=== PATIENT | male | born 1970 | race Caucasian/White ===

== ENCOUNTER 2020-12-10 14:07 | Inpatient (IN) | payer MEDICARE, OTHER ==
[~2020-12-10] VITALS: Ht 172.7 cm; Wt 78.9 kg
[~2020-12-10 14:07] MED LIST: ACET325T9 PO; ALBU2.5V14 NEB; ALUM320O4 PO; BISA-42 PO; BISA10SU55 RC; BUSP5TAB PO; DIVA250T PO; DIVA500T17 PO; HALO2TAB PO; HYOS0.1265 SL; LOPE2CAP PO; LORA-254 PO; LORA0.5T PO; LORA2VIA6 IJ; LORA2VIA6 IM; MAGN24003 PO; MAGN400O7 PO; NITR100C62 PO; OMEP20CA16 PO; ONDA4TAB7 PO; ONDA8TAB9 PO; OXYC5TAB4 PO; POLY17PO5 PO; PROC10TA2 PO; SENN8.6C2 PO; SIMV10TA15 PO
[2020-12-10] MEDS ORDERED: NA P133E2 RC (15:50)
[2020-12-10] MEDS ORDERED: FENT-73 TP (15:50)
[2020-12-10] MEDS ORDERED: SIMV10TA15 PO (15:50)
[2020-12-10] MEDS ORDERED: ACET325T21 PO (15:50)
[2020-12-10] MEDS ORDERED: HALO2ORA3 PO (15:50)
[2020-12-10] MEDS ORDERED: DIVA250T PO (15:50)
[2020-12-10] MEDS ORDERED: MULT-246 PO (15:50)
[2020-12-10] MEDS ORDERED: FAMO20TA5 PO (15:50)
[2020-12-10] MEDS ORDERED: BISA5TAB4 PO (15:50)
[2020-12-10] MEDS ORDERED: INSU100I17 SQ (15:50)
[2020-12-10] MEDS ORDERED: PARO40TA61 PO (15:50)
[2020-12-10] MEDS ORDERED: LACT1CAP6 PO (15:50)
[2020-12-10] MEDS ORDERED: BACL10TA PO (15:50)
[2020-12-10] MEDS ORDERED: NALO25TA4 PO (15:50)
[2020-12-10] MEDS ORDERED: DOCU100C28 PO (15:50)
[2020-12-10] MEDS ORDERED: POLY17PO5 PO (15:50)
[2020-12-10] MEDS ORDERED: SENN8.6T11 PO (15:50)
[2020-12-10] MEDS ORDERED: BUSP15TA PO (15:50)
[2020-12-10] MEDS ORDERED: INSU100I13 SQ (15:50)
[2020-12-10] MEDS ORDERED: TAMS0.4C97 PO (15:50)
[2020-12-10] MEDS ORDERED: PARO10TA57 PO (15:50)
[2020-12-10] MEDS ORDERED: MAG HYDROX/AL HYDROX/SIMETH 30 ML ORAL.SUSP PO PRN (20:15)
[2020-12-10] MEDS ORDERED: METHYL SALICYLATE/MENTHOL TOPICAL OINTMENT 57GM TUBE. TP PRN (20:15)
[2020-12-10] MEDS ORDERED: MAGNESIUM HYDROXIDE 2,400 MG/30 ML ORAL.SUSP. PO PRN (20:15)
[2020-12-10 20:20] VITALS: BP 158/99
[2020-12-10] MEDS ORDERED: ACETAMINOPHEN 325 MG TABLET PO PRN (20:45)
[2020-12-10] MEDS ORDERED: NALOXEGOL OXALATE 25 MG TABLET. PO PRN (20:45)
[2020-12-10] MEDS ORDERED: SODIUM PHOSPHATES 19/7GM 133 ML ENEMA. RC PRN (20:45)
[2020-12-10] MEDS ORDERED: BISACODYL TAB 5 MG TABLET.DR. PO PRN (20:45)
[2020-12-10] MEDS: INSULIN GLARGINE SYRINGE. SQ SCH (21:00)
[2020-12-10 21:17] LABS: BASO # 0.1 x10^3/uL (0.0-0.2); BASO % 1 % (0-3); EOS # 0.3 x10^3/uL (0.0-0.7); EOS % 3 % (0-3); HEMATOCRIT 38.8 % (39.0-53.0); HEMOGLOBIN 12.6 g/dL (13.0-17.5); LYMPH # 1.7 x10^3/uL (1.0-4.8); LYMPH % 21 % (24-48); MEAN CORPUSCULAR HEMOGLOBIN 28 pg (25-35); MEAN CORPUSCULAR HGB CONC 33 g/dL (31-37); MEAN CORPUSCULAR VOLUME 84 fL (79-100); MONO # 0.7 x10^3/uL (0.0-1.1); MONO % 9 % (0-9); NEUT # 5.4 x10^3uL (1.8-7.7); NEUT % 66 % (31-73); PLATELET COUNT 181 x10^3/uL (140-400); RED CELL DISTRIBUTION WIDTH 16.6 % (11.5-14.5); WHITE BLOOD COUNT 8.2 x10^3/uL (4.0-11.0)
[2020-12-10] MEDS: BACLOFEN 10 MG TABLET PO SCH (21:24)
[2020-12-10] MEDS: LACTOBACILLUS RHAMNOSUS GG 1 CAPSULE. PO SCH (21:24)
[2020-12-10] MEDS: HALOPERIDOL 2 MG TABLET PO SCH (21:24)
[2020-12-10] MEDS: SIMVASTATIN 10 MG TABLET PO SCH (21:24)
[2020-12-10] MEDS: FAMOTIDINE 20 MG TABLET PO SCH (21:24)
[2020-12-10] MEDS: DIVALPROEX ER 250 MG TAB.ER.24H. PO SCH (21:24)
[2020-12-10] MEDS: POLYETHYLENE GLYCOL 3350 17 GM PACKET. PO SCH (21:24)
[2020-12-10] MEDS: busPIRone 15 MG TABLET. PO SCH (21:25)
[2020-12-10] MEDS: DOCUSATE SODIUM 100 MG CAPSULE PO SCH (21:25)
[2020-12-10 21:32] LABS: ALBUMIN 3.1 g/dL (3.4-5.0); ALBUMIN/GLOBULIN RATIO 0.6 (1.0-1.7); ALK PHOS 73 U/L (46-116); ALT (SGPT) 15 U/L (16-63); ANION GAP 12 (6-14); AST (SGOT) 5 U/L (15-37); BLOOD UREA NITROGEN 25 mg/dL (8-26); BUN/CREATININE RATIO 23 (6-20); CALCIUM 9.1 mg/dL (8.5-10.1); CARBON DIOXIDE 25 mmol/L (21-32); CHLORIDE 105 mmol/L (98-107); CREATININE 1.1 mg/dL (0.7-1.3); GFR 70.9; GLUCOSE 163 mg/dL (70-99); MAGNESIUM 2.2 mg/dL (1.8-2.4); POTASSIUM 4.3 mmol/L (3.5-5.1); SODIUM 142 mmol/L (136-145); TOTAL BILIRUBIN 0.1 mg/dL (0.2-1.0); TOTAL PROTEIN 8.1 g/dL (6.4-8.2)
[2020-12-10 21:35] LABS: VAL ACID 40 mcg/mL (50-100)
[2020-12-10 22:49] LABS: BILIRUBIN,URINE NEG (NEG); CLARITY,URINE CLOUDY; COLOR,URINE YELLOW; GLUCOSE,URINE NEG (NEG)
[2020-12-10 22:50] LABS: BACTERIA,URINE MOD /HPF (0-FEW); NITRITE,URINE POS (NEG); SQUAMOUS EPITHELIAL CELL,UR OCC /LPF; UROBILINOGEN,URINE 0.2 mg/dL (0.2 mg/dL); WBC,URINE >40 /HPF (0-4)
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
[2020-12-11 06:44] VITALS: BP 122/86
[2020-12-11] MEDS: LACTOBACILLUS RHAMNOSUS GG 1 CAPSULE. PO SCH ×2 (09:18→20:49)
[2020-12-11] MEDS: PARoxetine 20 MG TABLET PO SCH (09:19)
[2020-12-11] MEDS: busPIRone 15 MG TABLET. PO SCH ×3 (09:19→20:50)
[2020-12-11] MEDS: BACLOFEN 10 MG TABLET PO SCH ×3 (09:19→20:49)
[2020-12-11] MEDS: HALOPERIDOL 2 MG TABLET PO SCH ×2 (09:19→20:50)
[2020-12-11] MEDS: PARoxetine 10 MG TABLET PO SCH (09:19)
[2020-12-11] MEDS: POLYETHYLENE GLYCOL 3350 17 GM PACKET. PO SCH ×2 (09:20→20:49)
[2020-12-11] MEDS: SENNOSIDES 8.6 MG TABLET PO SCH (09:20)
[2020-12-11] MEDS: DIVALPROEX ER 250 MG TAB.ER.24H. PO SCH ×3 (09:20→20:50)
[2020-12-11] MEDS: DOCUSATE SODIUM 100 MG CAPSULE PO SCH ×2 (09:20→20:50)
[2020-12-11] MEDS: TAMSULOSIN 0.4 MG CAP.ER.24H. PO SCH (09:20)
[2020-12-11] MEDS: MULTIVITAMIN with MINERAL TABLET. PO SCH (09:20)
[2020-12-11] MEDS: INSULIN LISPRO 300 UNITS/3 ML VIAL. SQ SCH ×3 (09:22→17:00)
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
[2020-12-11 16:02] VITALS: BP 133/88
--- NOTE | 2020-12-11 18:30 | NUR ---
Patient was disorganized, forgetful, cooperative, and pleasant for this shift after breakfast. He was attention seeking and demanding first thing in the morning, affect improved during the morning. Patient enjoyed listening to music streamed through a Re for most of the afternoon. Will continue to monitor and report to oncoming shift.
[2020-12-11 18:54] LABS: THYROID STIM HORMONE (TSH) 2.919 uIU/mL (0.358-3.740)
[2020-12-11 20:00] VITALS: BP 126/79
[2020-12-11] MEDS: SIMVASTATIN 10 MG TABLET PO SCH (20:49)
[2020-12-11] MEDS: FAMOTIDINE 20 MG TABLET PO SCH (20:49)
[2020-12-11] MEDS: INSULIN GLARGINE SYRINGE. SQ SCH (21:31)
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
[2020-12-12 00:10] LABS: HEMOGLOBIN A1C 6.4 % (4.8-5.6)
--- NOTE | 2020-12-12 01:51 | CONS ---
DATE OF CONSULTATION: 12/11/2020 HISTORY OF PRESENT ILLNESS: The patient is a 50-year-old male patient, a resident at [facility], who was [facility] on account of attempting to grab and scratch staff, throws water pitchers, wanting to had sex, manic, delusional, attention seeking, yelling about his meds and thinks he is getting too much anxious, thinks bed is shocking him, all this in the background of bipolar, mixed with psychotic features. PAST MEDICAL HISTORY: Significant for cerebral palsy, type 2 diabetes mellitus, hyperlipidemia, chronic constipation, dysphagia, generalized muscle weakness, recurrent UTIs, gastroesophageal reflux disease, bilateral staghorn calculi. PAST PSYCHIATRIC HISTORY: Significant for bipolar disorder, anxiety, schizophrenia, major depressive disorder, cognitive communication deficit, and impulse disorder. PAST SURGICAL HISTORY: Unobtainable. ALLERGIES: HE IS ALLERGIC TO CODEINE AND MEPERIDINE. MEDICATIONS: The patient is currently on the following medications: He is on Flomax 0.4 mg at bedtime, baclofen 10 mg 3 times a day, simvastatin 10 mg at bedtime, fentanyl patch 12 mcg per hour topically q. 72 hours, acetaminophen 650 mg every 4-6 hours, divalproex sodium 250 mg 3 times a day, paroxetine 10 mg daily, paroxetine 40 mg daily, Haloperidol lactate 2 mg in 1 mL oral concentrate 3 mg p.o. b.i.d., buspirone 15 mg 3 times a day, Lactobacillus acidophilus 1 capsule twice a day, bisacodyl 5 mg tablet daily as needed for constipation. He is on Colace 100 mg twice a day. He is also on Fleet enemas rectally daily p.r.n. for constipation, polyethylene glycol 17 grams twice a day, senna 1 tablet daily. He is on famotidine 20 mg at bedtime. He is on Movantik 25 mg daily. He is on Lantus insulin 10 units before meals. He is on a NovoLog FlexPen insulin 10 units 3 times a day with meals and Lantus insulin 25 units at bedtime. He is on multivitamin 1 tablet once a day. FAMILY HISTORY: Noncontributory. SOCIAL HISTORY: He is a resident at [facility]. He does not smoke, drink alcohol or recreational drugs. He is mostly bedbound, wheelchair bound. PHYSICAL EXAMINATION: GENERAL: When I examined him, he looked well and was clearly in no apparent respiratory distress. No pallor, jaundice, cyanosis or thyromegaly. No jugular venous distention. No lower limb edema. VITAL SIGNS: His heart rate was 77, blood pressure is 122/86, temperature was 98.1, respiratory rate 20, and oxygen saturation was 93%. HEAD, EYES, EARS, NOSE, AND THROAT: Normocephalic, atraumatic. NECK: Supple. HEART: Normal first and second heart sounds. No gallop, rub or murmur. CHEST: Clear to auscultation, no crepitation or rhonchi. ABDOMEN: Distended, soft, nontender. NEUROLOGIC: He is awake, alert, oriented. Cranial nerves intact. He moves upper extremities without difficulty. Has paraplegia with fixed flexion contraction of both lower extremities. LABORATORY DATA: Showed a white cell count of 8200, hemoglobin 13, hematocrit 39, MCV 84 and platelet count of 181,000. His chemistry showed a serum sodium 142, potassium 4.3, chloride 105, bicarbonate 25, anion gap of 12, BUN 25, creatinine 1.1. Estimated GFR was 71 mL per minute. His glucose 163, calcium was 9.1, magnesium was 2.2. Total bilirubin, AST, ALT, alkaline phosphatase were normal. Total protein was 8.1, albumin was 3.1. His total T4 and total T3 are within normal range. His D-dimer was 0.34. Urinalysis showed the urine was yellow, cloudy with a pH of 7, specific gravity of 1.020. There is small amount of protein, negative for glucose, ketones, large amount of blood, positive for nitrite. There was large amount of leukocyte esterase, 6-10 rbc's, more than 40 wbc's and moderate amount of bacteria. His urine toxic screen showed valproic acid to be 40 mcg per mL, which is subtherapeutic. ASSESSMENT: In summary, this is a 50-year-old male patient with cerebral palsy and schizophrenia, who is a resident at [facility] and who was admitted on account of attempting to grab and scratch staff, throws water pitchers, wanting to have sex, manic, delusional, attention seeking and yelling about his meals and thinks he is getting too much anxious, thinks the bed is shocking him, all this in a background of schizophrenia and bipolar disorder with psychotic features. Medically, he all in all seems to be medically stable. His vital signs are within normal range. His lab work are well within acceptable range. His thyroid function is normal. Urinalysis consistent with probable urinary tract infection, although urine culture done 2 days ago at [facility] showed growth of about 20,000 colony-forming units per mL of Pseudomonas aeruginosa. PLAN: My plan is obviously to send the urine for culture and sensitivity. I will follow, all the lab works are still pending at the time of this dictation and make any necessary recommendation. Thank you, Dr. Leon, for allowing me to participate in the care of this patient. LINDSAY/VIKI DR: George TID: [id number]
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
[2020-12-12] MEDS: INSULIN LISPRO 300 UNITS/3 ML VIAL. SQ SCH ×3 (08:00→17:00)
--- NOTE | 2020-12-12 08:45 | NUR ---
Wound Care Wound Type/Assessment: Pt seen for left groin maceration and intertrigo from skin rubbing against each other d/t contracture. L groin area is clean, open area reddened and superficial, no odor or fluctuance noted. Pt incontinent of urine at this time, brief changed, tommy care completed, new brief applied. Treatment Recommendations/Plan: Recommend cleaning groin folds with wipes, and drying completely, then applying Stoma powder BID and PRN after brief changes to assist in healing of skin. Education provided: to SECURITY SYSTEM ADMINISTRATOR and pt re: POC Offloading surface/device: Pt is currently on a VersaCare bed with low airloss mattress. Recommended Referrals/Tests: n/a Discharge Recommendations for dressings: same as treatment plan above
[2020-12-12] MEDS: POLYETHYLENE GLYCOL 3350 17 GM PACKET. PO SCH ×2 (09:00→20:54)
[2020-12-12] MEDS: PARoxetine 10 MG TABLET PO SCH (09:22)
[2020-12-12] MEDS: TAMSULOSIN 0.4 MG CAP.ER.24H. PO SCH (09:22)
[2020-12-12] MEDS: LACTOBACILLUS RHAMNOSUS GG 1 CAPSULE. PO SCH ×2 (09:22→20:55)
[2020-12-12] MEDS: PARoxetine 20 MG TABLET PO SCH (09:22)
[2020-12-12] MEDS: MULTIVITAMIN with MINERAL TABLET. PO SCH (09:22)
[2020-12-12] MEDS: busPIRone 15 MG TABLET. PO SCH ×3 (09:22→20:55)
[2020-12-12] MEDS: BACLOFEN 10 MG TABLET PO SCH ×3 (09:22→20:55)
[2020-12-12] MEDS: SENNOSIDES 8.6 MG TABLET PO SCH (09:22)
[2020-12-12] MEDS: DIVALPROEX ER 250 MG TAB.ER.24H. PO SCH ×2 (09:23→14:01)
[2020-12-12] MEDS: DOCUSATE SODIUM 100 MG CAPSULE PO SCH ×2 (09:23→20:55)
[2020-12-12] MEDS: fentaNYL 12MCG/HR 1 PATCH PATCH TD SCH (09:23)
[2020-12-12] MEDS: HALOPERIDOL 2 MG TABLET PO SCH ×2 (09:23→20:55)
[2020-12-12 16:22] VITALS: BP_SYST 102; BP_SYST 113; BP_DIAS 58; BP_DIAS 84
[2020-12-12] MEDS: INSULIN GLARGINE SYRINGE. SQ SCH (20:54)
[2020-12-12] MEDS: SIMVASTATIN 10 MG TABLET PO SCH (20:55)
[2020-12-12] MEDS: FAMOTIDINE 20 MG TABLET PO SCH (20:55)
[2020-12-12] MEDS: DIVALPROEX 125 MG CAP.SPRINK PO SCH (20:57)
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
--- NOTE | 2020-12-13 02:31 | PN ---
DATE: 12/12/2020 SUBJECTIVE: The patient was seen today, met with the staff, chart reviewed. Staff reports increased paranoia, also grandiose and also demanding and needy at times. The patient is not able to ambulate, stays in bed most of the time. He is on a transport chair. The patient is able to interact with the staff. OBSERVATION: VITAL SIGNS: Temperature 97.8, blood pressure 126/79, pulse 18, O2 sat 92%. GENERAL: Slept about 7 hours last night. The patient's appetite is normal. CURRENT MEDICATIONS: The patient's current medications include Paxil 40 mg daily and 10 mg daily, Haldol 2 mg twice a day, Depakote 250 mg t.i.d., BuSpar 15 mg t.i.d. The patient is not having any side effects to medications. LABORATORY DATA: Patient's lab reviewed. ASSESSMENT: 1. Mood disorder, unspecified. 2. History of bipolar disorder. 3. History of schizoaffective disorder. 4. Impulse control disorder, unspecified. PLAN: Continue with the treatment. Continue with the current medications. LENGTH OF STAY: Seven to [address]: Breanne TID: [id number]
[2020-12-13 06:40] VITALS: BP 115/79
[2020-12-13] MEDS: INSULIN LISPRO 300 UNITS/3 ML VIAL. SQ SCH ×4 (08:00→17:00)
[2020-12-13] MEDS: DOCUSATE SODIUM 100 MG CAPSULE PO SCH ×2 (09:26→20:42)
[2020-12-13] MEDS: MULTIVITAMIN with MINERAL TABLET. PO SCH (09:26)
[2020-12-13] MEDS: DIVALPROEX 125 MG CAP.SPRINK PO SCH ×3 (09:26→20:42)
[2020-12-13] MEDS: LACTOBACILLUS RHAMNOSUS GG 1 CAPSULE. PO SCH ×2 (09:26→20:42)
[2020-12-13] MEDS: TAMSULOSIN 0.4 MG CAP.ER.24H. PO SCH (09:26)
[2020-12-13] MEDS: PARoxetine 20 MG TABLET PO SCH (09:26)
[2020-12-13] MEDS: SENNOSIDES 8.6 MG TABLET PO SCH (09:26)
[2020-12-13] MEDS: HALOPERIDOL 2 MG TABLET PO SCH ×2 (09:26→20:42)
[2020-12-13] MEDS: busPIRone 15 MG TABLET. PO SCH ×3 (09:26→20:42)
[2020-12-13] MEDS: PARoxetine 10 MG TABLET PO SCH (09:26)
[2020-12-13] MEDS: BACLOFEN 10 MG TABLET PO SCH ×3 (09:27→20:42)
[2020-12-13] MEDS: POLYETHYLENE GLYCOL 3350 17 GM PACKET. PO SCH ×2 (09:27→20:42)
[2020-12-13 14:23] LABS: BACTERIA,URINE 0 /HPF (0-FEW); BILIRUBIN,URINE NEG (NEG); CLARITY,URINE TURBID; COLOR,URINE YELLOW; GLUCOSE,URINE NEG (NEG); NITRITE,URINE POS (NEG); UROBILINOGEN,URINE 0.2 mg/dL (0.2 mg/dL); WBC,URINE TNTC /HPF (0-4)
[2020-12-13 15:50] VITALS: BP 108/64
--- NOTE | 2020-12-13 19:38 | NUR ---
Patient was disorganized, forgetful, attention seeking, and cooperative, for most of the shift. He was demanding at times with cares, and insisted on having help with his urinal which he is capable of using alone. Patient was occasionally delusional. FSBS were low at breakfast and dinner; scheduled insulin held. Will continue to monitor and report to oncoming shift.
[2020-12-13] MEDS: SIMVASTATIN 10 MG TABLET PO SCH (20:42)
[2020-12-13] MEDS: FAMOTIDINE 20 MG TABLET PO SCH (20:42)
[2020-12-13] MEDS: INSULIN GLARGINE SYRINGE. SQ SCH (20:44)
--- NOTE | 2020-12-13 23:42 | NUR ---
Pt in his bed this evening occasionally yelling out for nurse. Pt A/O x4. Compliant with whole medications. Pt attention seeking and acts helpless at times. No sexually inappropriateness this evening.
--- NOTE | 2020-12-14 02:03 | PN ---
DATE: 12/13/2020 SUBJECTIVE: The patient was seen today, met with the staff. Chart was reviewed. Also covering for Dr. Leon. The patient's behavior remains the same, stays in his room. The patient is not able to ambulate because of disability secondary to cerebral palsy. The patient is somewhat emotionally labile at times, but has not presented with any major behavior problems. OBSERVATION: VITAL SIGNS: Temperature 96.9, blood pressure 108/64, pulse 104, respirations 20, O2 sat 94%. GENERAL: The patient's sleep impaired. CURRENT MEDICATIONS: Paxil 40 mg daily and 10 mg daily, Haldol 2 mg twice a day, Depakote 250 mg 3 times a day, BuSpar 15 mg t.i.d. The patient is not having any side effects. LABORATORY DATA: The patient's lab reviewed. ASSESSMENT: 1. Mood disorder, unspecified. 2. History of bipolar disorder. 3. History of schizoaffective disorder. 4. Impulse control disorder, unspecified. PLAN: To continue with treatment. LENGTH OF STAY: [address]: Breanne TID: [id number]
[2020-12-14 06:26] VITALS: BP 113/76
[2020-12-14] MEDS: INSULIN LISPRO 300 UNITS/3 ML VIAL. SQ SCH ×3 (08:00→17:00)
[2020-12-14] MEDS: HALOPERIDOL 2 MG TABLET PO SCH ×2 (09:00→21:00)
[2020-12-14] MEDS: DOCUSATE SODIUM 100 MG CAPSULE PO SCH ×2 (09:00→21:00)
[2020-12-14] MEDS: SENNOSIDES 8.6 MG TABLET PO SCH (09:00)
[2020-12-14] MEDS: PARoxetine 20 MG TABLET PO SCH (09:00)
[2020-12-14] MEDS: BACLOFEN 10 MG TABLET PO SCH ×3 (09:00→21:00)
[2020-12-14] MEDS: MULTIVITAMIN with MINERAL TABLET. PO SCH (09:00)
[2020-12-14] MEDS: PARoxetine 10 MG TABLET PO SCH (09:00)
[2020-12-14] MEDS: LACTOBACILLUS RHAMNOSUS GG 1 CAPSULE. PO SCH ×2 (09:00→21:00)
[2020-12-14] MEDS: DIVALPROEX 125 MG CAP.SPRINK PO SCH ×3 (09:00→21:00)
[2020-12-14] MEDS: POLYETHYLENE GLYCOL 3350 17 GM PACKET. PO SCH ×2 (09:00→21:00)
[2020-12-14] MEDS: busPIRone 15 MG TABLET. PO SCH ×3 (09:00→21:00)
[2020-12-14] MEDS: TAMSULOSIN 0.4 MG CAP.ER.24H. PO SCH (09:00)
[2020-12-14 09:05] LABS: BASO % 0 % (0-3); EOS % 0 % (0-3); HEMATOCRIT 39.5 % (39.0-53.0); HEMOGLOBIN 12.6 g/dL (13.0-17.5); LYMPH # 0.7 x10^3/uL (1.0-4.8); LYMPH % 7 % (24-48); MEAN CORPUSCULAR HEMOGLOBIN 27 pg (25-35); MEAN CORPUSCULAR HGB CONC 32 g/dL (31-37); MEAN CORPUSCULAR VOLUME 86 fL (79-100); MONO # 0.8 x10^3/uL (0.0-1.1); MONO % 8 % (0-9); NEUT # 8.4 x10^3uL (1.8-7.7); NEUT % 84 % (31-73); PLATELET COUNT 170 x10^3/uL (140-400); RED BLOOD COUNT 4.58 x10^6/uL (4.30-5.70); RED CELL DISTRIBUTION WIDTH 16.8 % (11.5-14.5)
[2020-12-14 09:18] LABS: ALBUMIN/GLOBULIN RATIO 0.6 (1.0-1.7); ALK PHOS 61 U/L (46-116); ALT (SGPT) 15 U/L (16-63); ANION GAP 12 (6-14); AST (SGOT) 7 U/L (15-37); BLOOD UREA NITROGEN 14 mg/dL (8-26); BUN/CREATININE RATIO 14 (6-20); CALCIUM 9.2 mg/dL (8.5-10.1); CARBON DIOXIDE 24 mmol/L (21-32); CHLORIDE 102 mmol/L (98-107); GFR 79.1; GLUCOSE 176 mg/dL (70-99); SODIUM 138 mmol/L (136-145); TOTAL BILIRUBIN 0.3 mg/dL (0.2-1.0)
[2020-12-14 09:29] LABS: VAL ACID 81 mcg/mL (50-100)
--- NOTE | 2020-12-14 09:38 | NUR ---
Pt woke this morning with multiple episodes of emesis, c/o nausea, and c/o headache. Pt states he experiences migraine headaches frequently. BP 133/81, HR 81, RR 20, O2 97% RA. Pt had multiple episodes of emesis during breakfast. Dr Holland singh, ordered received: CT of head/abd/pelvis, CBC, CMP, serum lipase, Zofran ODT 4 mg PO Q4HPRN, NPO status. All morning medications held. Pt has been argumentative with staff this morning, stating he "doesn't trust the Dr" and complains about orders given. Pt alert and oriented, absent of SI/HI/VH/AH. During assessment and VS he became agitated about having to use the urinal and continued to interrupt staff despite encouragement for patience. While attempting to urinate he would call staff "janie" and state "I love you." Staff has been routinely entering pt room in pairs d/t pt's hx of sexual language and innuendos. Plan of care continues, will pass to next shift.
[2020-12-14] MEDS: ONDANSETRON ODT 4 MG TAB.RAPDIS PO PRN ×2 (13:29→18:09)
--- NOTE | 2020-12-14 14:53 | RAD ---
RS Compliance Statement: One or more of the following individualized dose reduction techniques were utilized for this examinat ion: 1. Automated exposure control 2. Adjustment of the mA and/or kV according to patient size 3. Use of iterative reconstruction technique CT HEAD WITHOUT CONTRAST History: Reason: vomiting and headache Comparison: None. Technique: Axial images are obtained of the head from the skull base through the vertex without IV co ntrast. Findings: No mass-effect, midline shift, extra-axial fluid collection, hemorrhage, or obvious acute infarction is identified. Basilar cisterns are patent. The ventricles and sulci are prominent, likely generalized cerebral atrophy, greater than expected fo r patient age. There is mild periventricular white matter hypoattenuation. Considerations include chr onic small vessel ischemic disease, sequela migraines, or demyelinating disease. Bone windows demonstrate no acute calvarial abnormality. The visualized paranasal sinuses are clear. Left mastoid air cells are partially opacified. IMPRESSION: 1. No acute intracranial abnormality. 2. Generalized cerebral atrophy. 3. Mild periventricular white matter changes. Electronically signed by: Stanislav Jackson MD (12/14/2020 2:51 PM) [id number]
--- NOTE | 2020-12-14 15:08 | RAD ---
Exam: CT abdomen/pelvis without intravenous contrast Indication: Vomiting and headache. Quadriplegia Comparison: Multiple prior exams including 08/21/2020 Technique: Helical CT imaging performed of the abdomen and pelvis without intravenous administration of contrast. Sagittal and coronal reformats were obtained. One or more of the following individualized dose reduction techniques were utilized for this examinat ion: 1. Automated exposure control 2. Adjustment of the mA and/or kV according to patient size 3. Use of iterative reconstruction technique. Findings: Liver: The liver is incompletely visualized. The visualized portion of the liver is unremarkable. Gallbladder/Biliary Tree: Normal. Pancreas: Normal Spleen: Normal Adrenal Glands: Normal Kidneys/Ureters/Bladder: Kidneys are unchanged in appearance with bilateral staghorn calculi filling the renal pelves and calyces. Dilation of proximal ureters with urothelial thickening in the periuret eral fat stranding is unchanged from multiple prior exams. Mid and distal ureters are normal in appea ja. There is mild mass effect on the bladder due to distended rectum. Reproductive Organs: Prostate gland is difficult to evaluate due to positioning. Stomach, small bowel, and colon: There is an increased, very large volume of stool in the rectum. The rectum measures about 12 cm in diameter. Colon is otherwise unremarkable. Small bowel is unremarkabl e. There is a small hiatal hernia. Vasculature: No aortic aneurysm. Lymph Nodes: No lymphadenopathy. Peritoneum and retroperitoneum: No free fluid or free air. Bones: The patient is tilted to the left. There is no acute fracture. There is chronic deformity of t he pelvis and hips. Incompletely visualized left proximal femoral hardware. 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 Other: There is chronic diffuse muscular atrophy in the proximal thighs. Impression: 1. Fecal impaction resulting in marked rectal distention. This causes mild mass effect on the bladde r. 2. Unchanged appearance of bilateral staghorn calculi. Extensive urothelial thickening and periurete ral fat stranding of the proximal ureters is unchanged and likely due to chronic inflammation. Electronically signed by: Funmi Uribe MD (12/14/2020 3:05 PM) [id number]
--- NOTE | 2020-12-14 15:18 | NUR ---
Reviewed abd/pelvic CT with Dr Lino, the following orders were received: advance diet to clear liquids, may resume PO medications, Relistor 12 mg SQ one time. Dr Lino states he will attempt digital removal of impaction tomorrow (12/15/20)
[2020-12-14 15:44] VITALS: BP 150/82
[2020-12-14] MEDS ORDERED: METHYLNALTREXONE 12 MG/0.6 ML VIAL. SQ ONE (16:00)
[2020-12-14] MEDS: FAMOTIDINE 20 MG TABLET PO SCH (21:00)
[2020-12-14] MEDS: SIMVASTATIN 10 MG TABLET PO SCH (21:00)
[2020-12-14] MEDS: INSULIN GLARGINE SYRINGE. SQ SCH (21:00)
--- NOTE | 2020-12-14 22:36 | NUR ---
Pt located in his room this evening laying in bed. Pt complains of nausea. HS medications held including insulin.
--- NOTE | 2020-12-14 23:02 | PN ---
DATE: 12/14/2020 SUBJECTIVE: The patient was seen today, met with the staff, chart reviewed. Staff reports that he stayed in bed most of the time, rest of the time on a Broda chair, no falls. He continues to be attention seeking. The patient also had vomiting several times. Apparently, he had a CT abdomen, which showed fecal impaction. Currently on clear liquid diet. OBSERVATION: VITAL SIGNS: Temperature 98.6, blood pressure 113/76, pulse 80, respirations 16, O2 sat 91%. GENERAL: Slept about 5 hours last night. The patient's appetite is fair. CURRENT MEDICATIONS: Include olanzapine 2.5 mg q.2 hours p.r.n., Depakote 250 mg twice a day and 500 mg at night, Paxil 50 mg daily, Haldol 2 mg twice a day, BuSpar 15 mg t.i.d. LABORATORY DATA: The patient's lab reviewed. ASSESSMENT: 1. Mood disorder, unspecified. 2. History of bipolar disorder. 3. History of schizoaffective disorder, poor impulse control disorder, unspecified. PLAN: To continue with the treatment. LENGTH OF STAY: 7-[address]: Breanne TID: [id number]
[2020-12-15] MEDS: ONDANSETRON ODT 4 MG TAB.RAPDIS PO PRN ×4 (01:59→20:25)
--- NOTE | 2020-12-15 02:21 | NUR ---
While changing pt, pt's left leg was noted to be red, swollen and warm to the touch. Dr. Lino paged. Received orders for left leg ultrasound, CBC, CMP. Dr. Lino stated the ultrasound did not need to be Stat and could be completed early Tuesday morning. Pt also had emesis x1. PRN Zofran administered.
[2020-12-15 05:51] VITALS: BP 117/72
--- NOTE | 2020-12-15 06:36 | NUR ---
Pt has vomited 3x throughout the night. During morning vitals, pt's O2 was at 81%. 2L O2 applied.
--- NOTE | 2020-12-15 06:39 | EKG ---
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
[2020-12-15] MEDS: INSULIN LISPRO 300 UNITS/3 ML VIAL. SQ SCH ×3 (08:00→16:55)
[2020-12-15 08:04] LABS: BASO # 0.1 x10^3/uL (0.0-0.2); BASO % 1 % (0-3); EOS % 0 % (0-3); HEMATOCRIT 37.1 % (39.0-53.0); HEMOGLOBIN 12.1 g/dL (13.0-17.5); LYMPH % 10 % (24-48); MEAN CORPUSCULAR HEMOGLOBIN 27 pg (25-35); MEAN CORPUSCULAR HGB CONC 33 g/dL (31-37); MEAN CORPUSCULAR VOLUME 84 fL (79-100); MONO # 0.9 x10^3/uL (0.0-1.1); MONO % 9 % (0-9); NEUT # 8.3 x10^3uL (1.8-7.7); NEUT % 80 % (31-73); PLATELET COUNT 156 x10^3/uL (140-400); RED BLOOD COUNT 4.44 x10^6/uL (4.30-5.70); RED CELL DISTRIBUTION WIDTH 16.8 % (11.5-14.5); WHITE BLOOD COUNT 10.3 x10^3/uL (4.0-11.0)
--- NOTE | 2020-12-15 08:11 | RAD ---
EXAMINATION: US DPLX VENOUS EXTREMITY LOWER LT INDICATION: Red, swollen left lower extremity, warm to touch, evaluate for deep venous thrombosis. COMPARISONS: None TECHNIQUE: Grayscale, color and spectral Doppler evaluation of the Left lower extremity deep venous s ystem(s) was performed. FINDINGS: Popliteal vein difficult to visualize due to patient was unable to straighten leg. Left common femoral, femoral and popliteal veins are normally compressible and demonstrate normally d irected and appropriately phasic flow with augmentation. Normal flow is present within the saphenofemoral junctions and deep femoral veins in the proximal thi gh and the posterior tibial and peroneal veins in the proximal calf. IMPRESSION: No left lower extremity deep venous thrombosis. Electronically signed by: Elda Mohamud MD (12/15/2020 8:08 AM) [facility]
[2020-12-15 08:26] LABS: ALBUMIN 2.8 g/dL (3.4-5.0); ALBUMIN/GLOBULIN RATIO 0.5 (1.0-1.7); CALCIUM 9.2 mg/dL (8.5-10.1); CREATININE 0.9 mg/dL (0.7-1.3); GFR 89.3; POTASSIUM 4.3 mmol/L (3.5-5.1); TOTAL BILIRUBIN 0.5 mg/dL (0.2-1.0)
[2020-12-15] MEDS: LACTOBACILLUS RHAMNOSUS GG 1 CAPSULE. PO SCH ×2 (09:00→21:00)
[2020-12-15] MEDS: MULTIVITAMIN with MINERAL TABLET. PO SCH (09:00)
[2020-12-15] MEDS: busPIRone 15 MG TABLET. PO SCH ×3 (09:00→21:00)
[2020-12-15] MEDS: BACLOFEN 10 MG TABLET PO SCH ×3 (09:00→21:00)
[2020-12-15] MEDS: DIVALPROEX 125 MG CAP.SPRINK PO SCH ×3 (09:00→21:00)
--- NOTE | 2020-12-15 09:14 | NUR ---
Pt c/o nausea, no episodes of emesis so far this shift. He remains on a clear liquid diet. He did not consume much for breakfast, morning blood glucose level 103, morning insulin held. No episodes of yelling or shouting from his room. He remains bedbound, L leg observed to be bright red. Ultrasound report reviewed, no reports of DVT. Pt has no c/o pain so far this shift, absent of SI/HI/VH/AH. He states he is willing to attempt to take some PO morning medications, PRN Zofran 4mg PO administered and pending reassessment prior to any further attempt at PO medications. Plan of care continues, will pass to next shift.
[2020-12-15] MEDS: fentaNYL 12MCG/HR 1 PATCH PATCH TD SCH (09:39)
[2020-12-15] MEDS: POLYETHYLENE GLYCOL 3350 17 GM PACKET. PO SCH ×2 (10:55→21:00)
[2020-12-15] MEDS: DOCUSATE SODIUM 100 MG CAPSULE PO SCH ×2 (10:56→21:00)
[2020-12-15] MEDS: TAMSULOSIN 0.4 MG CAP.ER.24H. PO SCH (10:56)
[2020-12-15] MEDS: PARoxetine 10 MG TABLET PO SCH (10:56)
[2020-12-15] MEDS: SENNOSIDES 8.6 MG TABLET PO SCH (10:56)
[2020-12-15] MEDS: HALOPERIDOL 2 MG TABLET PO SCH ×2 (10:56→21:00)
[2020-12-15] MEDS: PARoxetine 20 MG TABLET PO SCH (10:57)
--- NOTE | 2020-12-15 14:06 | NUR ---
Pt had an episode of emesis after lunch. PRN Zofran 4 mg PO administered
[2020-12-15] MEDS: ACETAMINOPHEN 325 MG TABLET PO PRN (15:30)
--- NOTE | 2020-12-15 15:31 | NUR ---
Pt c/o 08/28 headache. PAINAD score is 0 but he is adamant that he is experiencing a headache. When asked if he feels as though he will be able to keep PRN medications down he replied, "yes." PRN Acetaminophen 650 mg PO administered at his request.
[2020-12-15 15:37] VITALS: BP 113/72
[2020-12-15] MEDS ORDERED: LIDOCAINE 2% JELLY 6ML IN APPLICATOR. MM ONE (16:15)
--- NOTE | 2020-12-15 17:19 | RAD ---
XR FEMUR_LEFT 1 VIEW History: Reason: obvious deformity and soft tissue swelling of the left thigh / Spl. Instructions: / History: Technique: 2 views left femur Comparison: None. Findings: Internal fixation left proximal femur. No dislocation. Deformity of the left femoral head and acetabu lum. Moderate associated degenerative changes. No definite acute fracture. Deformity of the left dist al femur and knee. Degraded evaluation of the distal femur and knee. Large amount stool within the di stended rectum. Impression: 1. Degraded evaluation. 2. Chronic appearing deformity of the left femur with associated left hip DJD. 3. Large amount stool within the distended rectum. Electronically signed by: Joe Black DO (12/15/2020 5:17 PM) [facility]
--- NOTE | 2020-12-15 17:20 | NUR ---
Attempt to dislodge impaction performed by Dr Lino with assist of 2 staff. was able to remove only a small amount of soft BM. recommends fleet enema. Pt tolerated procedure well.
[2020-12-15] MEDS: FAMOTIDINE 20 MG TABLET PO SCH (21:00)
[2020-12-15] MEDS: SIMVASTATIN 10 MG TABLET PO SCH (21:00)
[2020-12-15] MEDS: INSULIN GLARGINE SYRINGE. SQ SCH (21:00)
--- NOTE | 2020-12-15 23:20 | NUR ---
Pt laying in his bed all evening. Pt stated that he "was not feeling too well." PRN Zofran administered. All HS medications held d/t pt's nausea. No behaviors this evening.
[2020-12-16] MEDS ORDERED: NYSTATIN TOPICAL POWDER 15GM BOTTLE. TP ONE (02:29)
[2020-12-16] MEDS: ONDANSETRON ODT 4 MG TAB.RAPDIS PO PRN ×3 (03:02→17:46)
[2020-12-16 03:49] LABS: BILIRUBIN,URINE NEG (NEG); CLARITY,URINE CLOUDY; COLOR,URINE YELLOW; GLUCOSE,URINE NEG (NEG); NITRITE,URINE POS (NEG)
[2020-12-16 03:50] LABS: BACTERIA,URINE MANY /HPF (0-FEW); SQUAMOUS EPITHELIAL CELL,UR FEW /LPF; WBC,URINE TNTC /HPF (0-4)
--- NOTE | 2020-12-16 06:25 | NUR ---
Pt had emesis x1 throughout the night. PRN Fleet enema administered. Awaiting results.
[2020-12-16 06:44] VITALS: BP 123/82
[2020-12-16] MEDS: INSULIN LISPRO 300 UNITS/3 ML VIAL. SQ SCH ×3 (08:00→17:00)
[2020-12-16] MEDS: busPIRone 15 MG TABLET. PO SCH ×3 (09:14→21:22)
[2020-12-16] MEDS: PARoxetine 10 MG TABLET PO SCH (09:14)
[2020-12-16] MEDS: MULTIVITAMIN with MINERAL TABLET. PO SCH (09:14)
[2020-12-16] MEDS: DOCUSATE SODIUM 100 MG CAPSULE PO SCH ×2 (09:14→21:22)
[2020-12-16] MEDS: SENNOSIDES 8.6 MG TABLET PO SCH (09:14)
[2020-12-16] MEDS: LACTOBACILLUS RHAMNOSUS GG 1 CAPSULE. PO SCH ×2 (09:14→21:22)
[2020-12-16] MEDS: DIVALPROEX 125 MG CAP.SPRINK PO SCH ×3 (09:14→21:22)
[2020-12-16] MEDS: PARoxetine 20 MG TABLET PO SCH (09:14)
[2020-12-16] MEDS: POLYETHYLENE GLYCOL 3350 17 GM PACKET. PO SCH ×2 (09:15→21:22)
[2020-12-16] MEDS: TAMSULOSIN 0.4 MG CAP.ER.24H. PO SCH (09:15)
[2020-12-16] MEDS: HALOPERIDOL 2 MG TABLET PO SCH ×2 (09:15→21:22)
[2020-12-16] MEDS: BACLOFEN 10 MG TABLET PO SCH ×3 (09:15→21:22)
--- NOTE | 2020-12-16 15:53 | PN ---
DATE: 12/15/2020 SUBJECTIVE: The patient was seen today, met with the staff, chart reviewed. The patient continues to be attention seeking, having multiple physical complaints. The patient recently had problems with constipation, fecal impaction, almost vomiting a few times. The patient was seen by Dr. Lino. The patient states he is feeling better today. Denies having any auditory hallucinations at this time. OBSERVATION: VITAL SIGNS: Temperature 98.9, blood pressure 117/72, pulse 93, respirations 16, O2 sat 92%. GENERAL: Slept about 6 hours last night. The patient's appetite is fair. CURRENT MEDICATIONS: Include olanzapine 2.5 mg q. 2 hours p.r.n., Depakote 250 mg twice a day and 500 mg at night, Paxil 50 mg daily, Haldol 2 mg twice a day, and BuSpar 15 mg t.i.d. p.o. LABORATORY DATA: The patient's lab reviewed. ASSESSMENT: 1. Mood disorder, unspecified. 2. History of bipolar disorder. 3. History of schizoaffective disorder. 4. Poor impulse control disorder, unspecified. PLAN: To continue with the treatment. LENGTH OF STAY: 7 to 10 days. SPEEDY/ANALI/FIOR DR: Breanne TID: [id number]
[2020-12-16 16:40] VITALS: BP 115/78
--- NOTE | 2020-12-16 17:15 | NUR ---
Wound Care Wound Type/Assessment: Pt seen for left groin maceration and intertrigo from skin rubbing against each other d/t contracture. L groin area is clean, open area reddened and superficial, no odor or fluctuance noted. Left lateral thigh from waist to knee has petechial erythema with edema but no open wounds or drainage. Discussed with Jose Eduardo CHIRINOS who will call Dr Lino and report findings. Treatment Recommendations/Plan: Recommend cleaning groin folds with wipes, and drying completely, then applying Stoma powder BID and PRN after brief changes to assist in healing of skin. Education provided: WC POC and Pu prevention strategies discussed with Pt and RN Offloading surface/device: Pt is currently on a VersaCare bed with low airloss mattress. Recommended Referrals/Tests: n/a Discharge Recommendations for dressings: same as treatment plan above
--- NOTE | 2020-12-16 18:30 | NUR ---
Patient has had complaints of nausea throughout this shift, prn medication provided per eMAR. He has been delusional and grandiose at times; he stated that [employer] is going to retire next year and that he was the replacement. Patient has increased erythema and edema in left leg, MD notified. Will continue to monitor and report to oncoming shift.
[2020-12-16] MEDS: FAMOTIDINE 20 MG TABLET PO SCH (21:22)
[2020-12-16] MEDS: SIMVASTATIN 10 MG TABLET PO SCH (21:22)
[2020-12-16] MEDS: INSULIN GLARGINE SYRINGE. SQ SCH (21:26)
--- NOTE | 2020-12-17 02:51 | PN ---
DATE: 12/16/2020 SUBJECTIVE: The patient was seen today, met with the staff, chart reviewed. The patient is needing multiple physical interventions. The patient is also dependent on staff for ADLs. The patient also has a wound of left groin. The patient is also seen by the [facility]. The patient spent most of the time in his room. OBSERVATION: VITAL SIGNS: The patient refused to vitals. GENERAL: Slept about 5 hours last night. The patient's appetite is fair. The patient is not admitting to having any delusional thinking. Staff reports behaviors including making statements like "he would be the beach next year". The patient is also exhibiting some emotional lability, grandiosity, also attention seeking. CURRENT MEDICATIONS: Olanzapine 2.5 mg q. 2 hours p.r.n., Depakote 250 mg twice a day and 500 mg at night, Paxil 50 mg daily, Haldol 2 mg twice a day, and BuSpar 15 mg t.i.d. LABORATORY DATA: Reviewed. ASSESSMENT: 1. Mood disorder, unspecified. 2. History of bipolar disorder. 3. History of schizoaffective disorder. 4. Poor impulse control disorder, unspecified. PLAN: Continue with the treatment. LENGTH OF STAY: 7-[address]: Breanne TID: [id number]
[2020-12-17 06:42] VITALS: BP 122/82
[2020-12-17] MEDS: DIVALPROEX 125 MG CAP.SPRINK PO SCH ×3 (08:50→21:10)
[2020-12-17] MEDS: PARoxetine 10 MG TABLET PO SCH (08:50)
[2020-12-17] MEDS: busPIRone 15 MG TABLET. PO SCH ×3 (08:50→21:10)
[2020-12-17] MEDS: MULTIVITAMIN with MINERAL TABLET. PO SCH (08:50)
[2020-12-17] MEDS: BACLOFEN 10 MG TABLET PO SCH ×3 (08:50→21:10)
[2020-12-17] MEDS: DOCUSATE SODIUM 100 MG CAPSULE PO SCH ×2 (08:50→21:10)
[2020-12-17] MEDS: PARoxetine 20 MG TABLET PO SCH (08:50)
[2020-12-17] MEDS: POLYETHYLENE GLYCOL 3350 17 GM PACKET. PO SCH ×2 (08:52→21:11)
[2020-12-17] MEDS: TAMSULOSIN 0.4 MG CAP.ER.24H. PO SCH (08:52)
[2020-12-17] MEDS: SENNOSIDES 8.6 MG TABLET PO SCH (08:52)
[2020-12-17] MEDS: HALOPERIDOL 2 MG TABLET PO SCH ×2 (08:52→21:11)
[2020-12-17] MEDS: LACTOBACILLUS RHAMNOSUS GG 1 CAPSULE. PO SCH ×2 (08:52→21:10)
[2020-12-17] MEDS: INSULIN LISPRO 300 UNITS/3 ML VIAL. SQ SCH ×3 (08:52→17:00)
[2020-12-17] MEDS: DOXYCYCLINE HYCLATE 100 MG TABLET PO SCH ×2 (12:08→21:11)
[2020-12-17] MEDS: SMZ/TMP 800/160MG TABLET. PO SCH ×2 (12:08→21:10)
[2020-12-17 15:28] VITALS: BP 126/85
--- NOTE | 2020-12-17 15:37 | NUR ---
DANIELLE met sent records to [facility] re: updates on pt.
--- NOTE | 2020-12-17 17:41 | NUR ---
Patient has been drowsy and withdrawn throughout this day. He has vomited at each meal, but denies nausea interventions. Patient has not been using his urinal as normal and has been more lethargic today. Will continue to monitor and report to oncoming shift.
[2020-12-17] MEDS: FAMOTIDINE 20 MG TABLET PO SCH (21:11)
[2020-12-17] MEDS: SIMVASTATIN 10 MG TABLET PO SCH (21:11)
[2020-12-17] MEDS: INSULIN GLARGINE SYRINGE. SQ SCH (21:26)
--- NOTE | 2020-12-18 01:42 | PN ---
DATE: 12/17/2020 SUBJECTIVE: The patient was seen today, met with the staff, chart reviewed. Staff reports social isolation, stays in bed, compliant with the medications. The patient is apparently much calmer today. OBSERVATION: VITAL SIGNS: Temperature 98.0, blood pressure 122/82, pulse 88, respirations 16, O2 sat 90%. GENERAL: Sleep, 6 hours last night. CURRENT MEDICATIONS: Include olanzapine 2.5 mg q. 2 hours p.r.n., Depakote 250 mg twice a day and 500 mg at night, Paxil 50 mg daily, Haldol 2 mg twice a day and BuSpar 15 mg t.i.d. The patient denies of any side effects. LABORATORY DATA: Reviewed. ASSESSMENT: 1. Mood disorder, unspecified. 2. History of bipolar disorder. 3. History of schizoaffective disorder. 4. Poor impulse control disorder, unspecified. PLAN: To continue with the treatment. LENGTH OF STAY: Seven to ten days. SPEEDY/KRISS DR: Breanne TID: [id number]
[2020-12-18 06:46] VITALS: BP 134/88
[2020-12-18] MEDS: INSULIN LISPRO 300 UNITS/3 ML VIAL. SQ SCH ×3 (08:00→16:53)
[2020-12-18] MEDS: HALOPERIDOL 2 MG TABLET PO SCH ×2 (09:06→21:54)
[2020-12-18] MEDS: LACTOBACILLUS RHAMNOSUS GG 1 CAPSULE. PO SCH ×2 (09:07→21:54)
[2020-12-18] MEDS: SMZ/TMP 800/160MG TABLET. PO SCH ×2 (09:07→21:54)
[2020-12-18] MEDS: SENNOSIDES 8.6 MG TABLET PO SCH (09:07)
[2020-12-18] MEDS: DOXYCYCLINE HYCLATE 100 MG TABLET PO SCH ×2 (09:07→21:54)
[2020-12-18] MEDS: BACLOFEN 10 MG TABLET PO SCH ×3 (09:07→21:54)
[2020-12-18] MEDS: MULTIVITAMIN with MINERAL TABLET. PO SCH (09:07)
[2020-12-18] MEDS: PARoxetine 20 MG TABLET PO SCH (09:08)
[2020-12-18] MEDS: DIVALPROEX 125 MG CAP.SPRINK PO SCH ×3 (09:08→21:54)
[2020-12-18] MEDS: TAMSULOSIN 0.4 MG CAP.ER.24H. PO SCH (09:08)
[2020-12-18] MEDS: busPIRone 15 MG TABLET. PO SCH ×3 (09:08→21:54)
[2020-12-18] MEDS: POLYETHYLENE GLYCOL 3350 17 GM PACKET. PO SCH ×2 (09:08→21:54)
[2020-12-18] MEDS: PARoxetine 10 MG TABLET PO SCH (09:08)
[2020-12-18] MEDS: DOCUSATE SODIUM 100 MG CAPSULE PO SCH ×2 (09:08→21:54)
--- NOTE | 2020-12-18 11:32 | NUR ---
WEEKLY ACTIVITY THERAPY NOTE Date of Admission: 12/10/20 Date of AT Assessment: 12/11/20 Precipitating behaviors that initiated intake and admission:Pt asking staff for staff, acting out aggressive, delusional states all staff are molesting him. Goal aimed: to increase engagement and socialization Initial Goal: Pt. will participate in at least five individual or Activity Therapy group sessions before discharge. Weekly progress towards goal: NA, on admit ramos Group participation level: NA Weekly highlights: NA Behaviors observed: needs lots of assistance, listening to music Plan: required to be in 229 for medical needs Beneficial adaptations: full assistance-physical needs
[2020-12-18] MEDS: fentaNYL 12MCG/HR 1 PATCH PATCH TD SCH (12:25)
--- NOTE | 2020-12-18 15:41 | NUR ---
Treatment team update: Pt is eating roughly 25% of meals and sleeping on average 7 hours per night. Pt is currently on clear liquids as over the last few days pt has been vomiting all meals. It has been noted by staff that pt eats very fast and less than 5 minutes later it all comes up. Pt continues to be grandiose in thinking and making sexually inappropriate comments. Pt is seeing wound care and has had 3 UA completed which 2 came back contaminated and 1 did return showing 3 organisms in pt urine. Pt is mostly bed bound and does not appear to be able to participate in group activities. It is also noted the last few nights that pt has needed 2L of oxygen and the reason why is unknown. Pt will have his Paxil decreased to 30mg; psychiatrist will continue to evaluate. Pt will return to [facility] 14 days.
[2020-12-18 16:08] VITALS: BP 151/88
[2020-12-18] MEDS: ACETAMINOPHEN 325 MG TABLET PO PRN (16:49)
--- NOTE | 2020-12-18 17:20 | NUR ---
Patient has been attention seeking and helpless throughout this day. He repeatedly calls out for help to use his urinal. He has vomited at each meal, but denies nausea interventions; he is on clear liquids and drinks everything extremely fast. Patient had repeatedly asked for pain medication in the afternoon, when I approached him, he stated the pain went away because he prayed. PRN medication provided per eMAR as patient stated he still wanted it. Will continue to monitor and report to oncoming shift.
[2020-12-18] MEDS: SIMVASTATIN 10 MG TABLET PO SCH (21:54)
[2020-12-18] MEDS: FAMOTIDINE 20 MG TABLET PO SCH (21:54)
[2020-12-18] MEDS: INSULIN GLARGINE SYRINGE. SQ SCH (22:05)
--- NOTE | 2020-12-18 22:21 | PDOC ---
Exam Note: Edgar Note: Please also refer to the separate dictated note~for this date of service dictated separately.~Patient seen individually. Discussed the patient with Nursing staff reviewed the chart.~Reviewed interim history and current functioning. Reviewed vital signs,~Labs/ Radiology~and current medications noted below. Continue current treatment with the changes noted in the dictated addendum note Assessment: Vital Signs/I&O: Vital Signs Date Time Temp Pulse Resp B/P (MAP) Pulse Ox O2 Delivery O2 Flow Rate FiO2 12/18/20 16:54 16 95 Room Air 12/18/20 16:08 97.1 104 151/88 (109) 12/15/20 15:37 2.0 I & O 12/17/20 12/17/20 12/18/20 15:00 23:00 07:00 Intake Total 1080 ml 120 ml Balance 1080 ml 120 ml Labs: Laboratory Tests Test 12/18/20 07:38 12/18/20 11:18 12/18/20 16:40 12/18/20 19:36 Glucose (Fingerstick) 88 mg/dL (70-99) 139 mg/dL (70-99) H 108 mg/dL (70-99) H 100 mg/dL (70-99) H Current Medications: Meds: Laboratory Tests Test 12/18/20 07:38 12/18/20 11:18 12/18/20 16:40 12/18/20 19:36 Glucose (Fingerstick) 88 mg/dL 139 mg/dL 108 mg/dL 100 mg/dL Current Medications Medications (Trade) Dose Ordered Sig/Melissa Route PRN Reason Start Time Stop Time Status Last Admin Dose Admin Acetaminophen (Tylenol) 650 mg PRN Q6HRS PRN PO MILD PAIN / TEMP > 100.3'F 12/10/20 20:15 12/18/20 16:49 Multi-Ingredient Ointment (Analgesic [place]) 1 yisel PRN QID PRN TP MUSCLE PAIN 12/10/20 20:15 Al Hydroxide/Mg Hydroxide (Mylanta Plus Xs) 15 ml PRN AFTMEALHC PRN PO DYSPEPSIA 12/10/20 20:15 Magnesium Hydroxide (Milk Of Magnesia) 2,400 mg PRN QHS PRN PO 1ST CHOICE CONSTIPATION 12/10/20 20:15 Acetaminophen (Tylenol) 650 mg PRN Q6HRS PRN PO pain or fever 12/10/20 20:45 UNV Baclofen (Lioresal) 10 mg TID PO 12/10/20 21:00 12/18/20 21:54 Bisacodyl (Dulcolax Tab) 5 mg PRN DAILY PRN PO 3RD CHOICE CONSTIPATION 12/10/20 20:45 Buspirone HCl (Buspar) 15 mg TID PO 12/10/20 21:00 12/18/20 21:54 Divalproex Sodium (Depakote Er) 250 mg TID PO 12/10/20 21:00 12/12/20 18:37 DC 12/12/20 14:01 Docusate Sodium (Colace) 100 mg BID PO 12/10/20 21:00 12/18/20 21:54 Famotidine (Pepcid) 20 mg HS PO 12/10/20 21:00 12/18/20 21:54 Fentanyl (Duragesic 12mcg/ Hr) 1 patch Q3DAYS TD 12/12/20 09:00 12/18/20 12:25 Haloperidol (Haldol) 2 mg BID PO 12/10/20 21:00 12/18/20 21:54 Sodium Biphosphate/ Sodium Phosphate (Fleet Adult) 133 ml PRN DAILY PRN RC 4TH CHOICE CONSTIPATION 12/10/20 20:45 12/16/20 06:24 Naloxegol (Movantik) 25 mg PRN DAILY PRN PO 2ND CHOICE CONSTIPATION 12/10/20 20:45 Paroxetine HCl (Paxil) 10 mg DAILY PO 12/11/20 09:00 12/18/20 11:40 DC 12/18/20 09:08 Polyethylene Glycol (miraLAX) 17 gm BID PO 12/10/20 21:00 12/18/20 21:54 Sennosides (Senna) 8.6 mg DAILY PO 12/11/20 09:00 12/18/20 09:07 Simvastatin (Zocor) 10 mg QHS PO 12/10/20 21:00 12/18/20 21:54 Tamsulosin HCl (Flomax) 0.4 mg DAILY PO 12/11/20 09:00 12/18/20 09:08 Insulin Human Lispro (HumaLOG) 10 units TIDWMEALS SQ 12/11/20 08:00 12/13/20 16:29 DC 12/13/20 12:31 Insulin Glargine (Lantus Syringe) 25 unit QHS SQ 12/10/20 21:00 12/18/20 22:05 Lactobacillus Rhamnosus (Culturelle) 1 cap BID PO 12/10/20 21:00 12/18/20 21:54 Multivitamins/ Calcium (Thera-M Plus) 1 tab DAILY PO 12/11/20 09:00 12/18/20 09:07 Paroxetine HCl (Paxil) 40 mg DAILY PO 12/11/20 09:00 12/18/20 11:40 DC 12/18/20 09:08 Divalproex Sodium (Depakote Sprinkles) 250 mg 0900,1400 PO 12/13/20 09:00 12/18/20 14:02 Divalproex Sodium (Depakote Sprinkles) 500 mg QHS PO 12/12/20 21:00 12/18/20 21:54 Insulin Human Lispro (HumaLOG) 5 units TIDWMEALS SQ 12/13/20 16:30 12/18/20 16:53 Ondansetron HCl (Zofran Odt) 4 mg PRN Q4HRS PRN PO NAUSEA/VOMITING 12/14/20 09:30 12/16/20 17:46 Methylnaltrexone [place] (Relistor) 12 mg ONCE ONCE SQ 12/14/20 16:00 12/14/20 16:01 DC 12/14/20 18:09 Olanzapine (ZyPREXA ZYDIS) 2.5 mg PRN Q2HRS PRN PO PSYCHOSIS 12/14/20 16:30 Lidocaine HCl (Glydo (Lidocaine) Jelly) 1 yisel 1X ONCE MM 12/15/20 16:15 12/15/20 16:16 DC 12/15/20 16:15 Nystatin (Nystop) 15 yisel STK-MED ONCE TP 12/16/20 02:29 12/16/20 02:30 DC Trimethoprim/ Sulfamethoxazole (Bactrim Ds) 1 tab BID PO 12/17/20 12:00 12/23/20 23:50 12/18/20 21:54 Doxycycline Hyclate (Vibra-Tab) 100 mg BID PO 12/17/20 12:00 12/23/20 23:50 12/18/20 21:54 Paroxetine HCl (Paxil) 30 mg DAILY PO 12/19/20 09:00 I have reviewed the current psychotropics carefully including drug interactions. Risk benefit ratio favors no change other than as noted in my dictated progress note. Diagnosis: Problems: (1) Schizoaffective disorder, bipolar type (2) Impulse control disorder, unspecified (3) Anxiety disorder, unspecified (4) Mood disorder EDSON VILLANUEVA MD Dec 18, 2020 22:21
--- NOTE | 2020-12-19 01:14 | NUR ---
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 He states that he is having bowel movements and doesn't need his miralax, denies that he has had any constipation ever. Skin to legs is red and clinton bilat, wound to left groin is wet but not bleeding. Pt admits to scratching it to make it worse. Grandiose and verbose, hyperverbal. Also states he isn't feeling that great but states no specific complaints VSS.
[2020-12-19 06:10] VITALS: BP 137/89
[2020-12-19 07:11] LABS: BASO % 1 % (0-3); EOS # 0.1 x10^3/uL (0.0-0.7); EOS % 2 % (0-3); HEMATOCRIT 39.9 % (39.0-53.0); HEMOGLOBIN 12.7 g/dL (13.0-17.5); LYMPH # 1.1 x10^3/uL (1.0-4.8); LYMPH % 19 % (24-48); MEAN CORPUSCULAR HEMOGLOBIN 27 pg (25-35); MEAN CORPUSCULAR HGB CONC 32 g/dL (31-37); MEAN CORPUSCULAR VOLUME 85 fL (79-100); MONO # 0.5 x10^3/uL (0.0-1.1); MONO % 8 % (0-9); NEUT # 4.3 x10^3uL (1.8-7.7); NEUT % 71 % (31-73); PLATELET COUNT 185 x10^3/uL (140-400); RED BLOOD COUNT 4.71 x10^6/uL (4.30-5.70); RED CELL DISTRIBUTION WIDTH 16.6 % (11.5-14.5)
[2020-12-19 07:30] LABS: ALBUMIN 2.8 g/dL (3.4-5.0); ALBUMIN/GLOBULIN RATIO 0.5 (1.0-1.7); CALCIUM 9.5 mg/dL (8.5-10.1); CREATININE 0.9 mg/dL (0.7-1.3); GFR 89.3; POTASSIUM 3.7 mmol/L (3.5-5.1); TOTAL BILIRUBIN 0.2 mg/dL (0.2-1.0); TOTAL PROTEIN 8.1 g/dL (6.4-8.2)
[2020-12-19] MEDS: INSULIN LISPRO 300 UNITS/3 ML VIAL. SQ SCH ×3 (08:00→17:00)
[2020-12-19] MEDS: SENNOSIDES 8.6 MG TABLET PO SCH (11:07)
[2020-12-19] MEDS: busPIRone 15 MG TABLET. PO SCH ×3 (11:07→20:26)
[2020-12-19] MEDS: LACTOBACILLUS RHAMNOSUS GG 1 CAPSULE. PO SCH ×2 (11:07→20:25)
[2020-12-19] MEDS: SMZ/TMP 800/160MG TABLET. PO SCH ×2 (11:07→20:27)
[2020-12-19] MEDS: DOXYCYCLINE HYCLATE 100 MG TABLET PO SCH ×2 (11:07→20:28)
[2020-12-19] MEDS: POLYETHYLENE GLYCOL 3350 17 GM PACKET. PO SCH ×2 (11:07→20:28)
[2020-12-19] MEDS: BACLOFEN 10 MG TABLET PO SCH ×3 (11:07→20:26)
[2020-12-19] MEDS: TAMSULOSIN 0.4 MG CAP.ER.24H. PO SCH (11:08)
[2020-12-19] MEDS: DOCUSATE SODIUM 100 MG CAPSULE PO SCH ×2 (11:08→20:28)
[2020-12-19] MEDS: PARoxetine 20 MG TABLET PO SCH (11:08)
[2020-12-19] MEDS: DIVALPROEX 125 MG CAP.SPRINK PO SCH ×3 (11:08→20:25)
[2020-12-19] MEDS: MULTIVITAMIN with MINERAL TABLET. PO SCH (11:08)
[2020-12-19] MEDS: HALOPERIDOL 2 MG TABLET PO SCH ×2 (11:08→20:27)
[2020-12-19 16:10] VITALS: BP 156/87
--- NOTE | 2020-12-19 16:45 | NUR ---
Nursing note: Pt is compliant with meds crushed in a bite of pudding. He is attention seeking at times and demands help urinating in his urinal (Pt has been noted to be able to use his urinal completely on his own). When he does not get the help he demands, pt begins crying out in a screeching voice to help him. Pt continues to be encouraged to do as much as he can on his own. Pt also making comments to staff to "keep your hands behind your back". Pt received cream soup and toast for lunch in an attempt to advance his diet, with staff monitoring and encouraging pt to consume his meal slowly. Pt tolerated the soup and toast well. He had an episode of vomiting later in the afternoon after consuming liquids. He is currently resting quietly in his bed. Will continue to monitor.
[2020-12-19] MEDS: SIMVASTATIN 10 MG TABLET PO SCH (20:26)
[2020-12-19] MEDS: FAMOTIDINE 20 MG TABLET PO SCH (20:28)
[2020-12-19] MEDS: INSULIN GLARGINE SYRINGE. SQ SCH (21:09)
--- NOTE | 2020-12-19 22:16 | PDOC ---
Exam Note: Edgar Note: Please also refer to the separate dictated note~for this date of service dictated separately.~Patient seen individually. Discussed the patient with Nursing staff reviewed the chart.~Reviewed interim history and current functioning. Reviewed vital signs,~Labs/ Radiology~and current medications noted below. Continue current treatment with the changes noted in the dictated addendum note Assessment: Vital Signs/I&O: Vital Signs Date Time Temp Pulse Resp B/P (MAP) Pulse Ox O2 Delivery O2 Flow Rate FiO2 12/19/20 16:10 97.2 120 20 156/87 (110) 12/19/20 06:10 95 2.0 12/18/20 16:54 Room Air I & O 12/18/20 12/18/20 12/19/20 15:00 23:00 07:00 Intake Total 960 ml 100 ml Balance 960 ml 100 ml Labs: Laboratory Tests Test 12/19/20 07:02 12/19/20 07:57 12/19/20 11:41 12/19/20 16:32 White Blood Count 6.0 x10^3/uL (4.0-11.0) Red Blood Count 4.71 x10^6/uL (4.30-5.70) Hemoglobin 12.7 g/dL (13.0-17.5) L Hematocrit 39.9 % (39.0-53.0) Mean Corpuscular Volume 85 fL (79-100) Mean Corpuscular Hemoglobin 27 pg (25-35) Mean Corpuscular Hemoglobin Concent 32 g/dL (31-37) Red Cell Distribution Width 16.6 % (11.5-14.5) H Platelet Count 185 x10^3/uL (140-400) Neutrophils (%) (Auto) 71 % (31-73) Lymphocytes (%) (Auto) 19 % (24-48) L Monocytes (%) (Auto) 8 % (0-9) Eosinophils (%) (Auto) 2 % (0-3) Basophils (%) (Auto) 1 % (0-3) Neutrophils # (Auto) 4.3 x10^3uL (1.8-7.7) Lymphocytes # (Auto) 1.1 x10^3/uL (1.0-4.8) Monocytes # (Auto) 0.5 x10^3/uL (0.0-1.1) Eosinophils # (Auto) 0.1 x10^3/uL (0.0-0.7) Basophils # (Auto) 0.0 x10^3/uL (0.0-0.2) Sodium Level 143 mmol/L (136-145) Potassium Level 3.7 mmol/L (3.5-5.1) Chloride Level 105 mmol/L (98-107) Carbon Dioxide Level 29 mmol/L (21-32) Anion Gap 9 (6-14) Blood Urea Nitrogen 11 mg/dL (8-26) Creatinine 0.9 mg/dL (0.7-1.3) Estimated GFR (Cockcroft-Gault) 89.3 BUN/Creatinine Ratio 12 (6-20) Glucose Level 102 mg/dL (70-99) H Calcium Level 9.5 mg/dL (8.5-10.1) Total Bilirubin 0.2 mg/dL (0.2-1.0) Aspartate Amino Transferase (AST) 9 U/L (15-37) L Alanine Aminotransferase (ALT) 15 U/L (16-63) L Alkaline Phosphatase 68 U/L (46-116) Total Protein 8.1 g/dL (6.4-8.2) Albumin 2.8 g/dL (3.4-5.0) L Albumin/Globulin Ratio 0.5 (1.0-1.7) L Glucose (Fingerstick) 100 mg/dL (70-99) H 102 mg/dL (70-99) H 114 mg/dL (70-99) H Test 12/19/20 19:20 Glucose (Fingerstick) 133 mg/dL (70-99) H Current Medications: Meds: Laboratory Tests Test 12/19/20 07:02 12/19/20 07:57 12/19/20 11:41 12/19/20 16:32 White Blood Count 6.0 x10^3/uL Red Blood Count 4.71 x10^6/uL Hemoglobin 12.7 g/dL Hematocrit 39.9 % Mean Corpuscular Volume 85 fL Mean Corpuscular Hemoglobin 27 pg Mean Corpuscular Hemoglobin Concent 32 g/dL Red Cell Distribution Width 16.6 % Platelet Count 185 x10^3/uL Neutrophils (%) (Auto) 71 % Lymphocytes (%) (Auto) 19 % Monocytes (%) (Auto) 8 % Eosinophils (%) (Auto) 2 % Basophils (%) (Auto) 1 % Neutrophils # (Auto) 4.3 x10^3uL Lymphocytes # (Auto) 1.1 x10^3/uL Monocytes # (Auto) 0.5 x10^3/uL Eosinophils # (Auto) 0.1 x10^3/uL Basophils # (Auto) 0.0 x10^3/uL Sodium Level 143 mmol/L Potassium Level 3.7 mmol/L Chloride Level 105 mmol/L Carbon Dioxide Level 29 mmol/L Anion Gap 9 Blood Urea Nitrogen 11 mg/dL Creatinine 0.9 mg/dL Estimated GFR (Cockcroft-Gault) 89.3 BUN/Creatinine Ratio 12 Glucose Level 102 mg/dL Calcium Level 9.5 mg/dL Total Bilirubin 0.2 mg/dL Aspartate Amino Transf (AST/SGOT) 9 U/L Alanine Aminotransferase (ALT/SGPT) 15 U/L Alkaline Phosphatase 68 U/L Total Protein 8.1 g/dL Albumin 2.8 g/dL Albumin/Globulin Ratio 0.5 Glucose (Fingerstick) 100 mg/dL 102 mg/dL 114 mg/dL Test 12/19/20 19:20 Glucose (Fingerstick) 133 mg/dL Current Medications Medications (Trade) Dose Ordered Sig/Melissa Route PRN Reason Start Time Stop Time Status Last Admin Dose Admin Acetaminophen (Tylenol) 650 mg PRN Q6HRS PRN PO MILD PAIN / TEMP > 100.3'F 12/10/20 20:15 12/18/20 16:49 Multi-Ingredient Ointment (Analgesic [place]) 1 yisel PRN QID PRN TP MUSCLE PAIN 12/10/20 20:15 Al Hydroxide/Mg Hydroxide (Mylanta Plus Xs) 15 ml PRN AFTMEALHC PRN PO DYSPEPSIA 12/10/20 20:15 Magnesium Hydroxide (Milk Of Magnesia) 2,400 mg PRN QHS PRN PO 1ST CHOICE CONSTIPATION 12/10/20 20:15 Acetaminophen (Tylenol) 650 mg PRN Q6HRS PRN PO pain or fever 12/10/20 20:45 UNV Baclofen (Lioresal) 10 mg TID PO 12/10/20 21:00 12/19/20 20:26 Bisacodyl (Dulcolax Tab) 5 mg PRN DAILY PRN PO 3RD CHOICE CONSTIPATION 12/10/20 20:45 Buspirone HCl (Buspar) 15 mg TID PO 12/10/20 21:00 12/19/20 20:26 Divalproex Sodium (Depakote Er) 250 mg TID PO 12/10/20 21:00 12/12/20 18:37 DC 12/12/20 14:01 Docusate Sodium (Colace) 100 mg BID PO 12/10/20 21:00 12/19/20 20:28 Famotidine (Pepcid) 20 mg HS PO 12/10/20 21:00 12/19/20 20:28 Fentanyl (Duragesic 12mcg/ Hr) 1 patch Q3DAYS TD 12/12/20 09:00 12/18/20 12:25 Haloperidol (Haldol) 2 mg BID PO 12/10/20 21:00 12/19/20 18:33 DC 12/19/20 11:08 Sodium Biphosphate/ Sodium Phosphate (Fleet Adult) 133 ml PRN DAILY PRN RC 4TH CHOICE CONSTIPATION 12/10/20 20:45 12/16/20 06:24 Naloxegol (Movantik) 25 mg PRN DAILY PRN PO 2ND CHOICE CONSTIPATION 12/10/20 20:45 Paroxetine HCl (Paxil) 10 mg DAILY PO 12/11/20 09:00 12/18/20 11:40 DC 12/18/20 09:08 Polyethylene Glycol (miraLAX) 17 gm BID PO 12/10/20 21:00 12/19/20 20:28 Sennosides (Senna) 8.6 mg DAILY PO 12/11/20 09:00 12/19/20 11:07 Simvastatin (Zocor) 10 mg QHS PO 12/10/20 21:00 12/19/20 20:26 Tamsulosin HCl (Flomax) 0.4 mg DAILY PO 12/11/20 09:00 12/19/20 11:08 Insulin Human Lispro (HumaLOG) 10 units TIDWMEALS SQ 12/11/20 08:00 12/13/20 16:29 DC 12/13/20 12:31 Insulin Glargine (Lantus Syringe) 25 unit QHS SQ 12/10/20 21:00 12/19/20 21:09 Lactobacillus Rhamnosus (Culturelle) 1 cap BID PO 12/10/20 21:00 12/19/20 20:25 Multivitamins/ Calcium (Thera-M Plus) 1 tab DAILY PO 12/11/20 09:00 12/19/20 11:08 Paroxetine HCl (Paxil) 40 mg DAILY PO 12/11/20 09:00 12/18/20 11:40 DC 12/18/20 09:08 Divalproex Sodium (Depakote Sprinkles) 250 mg 0900,1400 PO 12/13/20 09:00 12/19/20 14:58 Divalproex Sodium (Depakote Sprinkles) 500 mg QHS PO 12/12/20 21:00 12/19/20 20:25 Insulin Human Lispro (HumaLOG) 5 units TIDWMEALS SQ 12/13/20 16:30 12/18/20 16:53 Ondansetron HCl (Zofran Odt) 4 mg PRN Q4HRS PRN PO NAUSEA/VOMITING 12/14/20 09:30 12/16/20 17:46 Methylnaltrexone [place] (Relistor) 12 mg ONCE ONCE SQ 12/14/20 16:00 12/14/20 16:01 DC 12/14/20 18:09 Olanzapine (ZyPREXA ZYDIS) 2.5 mg PRN Q2HRS PRN PO PSYCHOSIS 12/14/20 16:30 Lidocaine HCl (Glydo (Lidocaine) Jelly) 1 yisel 1X ONCE MM 12/15/20 16:15 12/15/20 16:16 DC 12/15/20 16:15 Nystatin (Nystop) 15 yisel STK-MED ONCE TP 12/16/20 02:29 12/16/20 02:30 DC Trimethoprim/ Sulfamethoxazole (Bactrim Ds) 1 tab BID PO 12/17/20 12:00 12/23/20 23:50 12/19/20 20:27 Doxycycline Hyclate (Vibra-Tab) 100 mg BID PO 12/17/20 12:00 12/23/20 23:50 12/19/20 20:28 Paroxetine HCl (Paxil) 30 mg DAILY PO 12/19/20 09:00 12/19/20 11:08 Haloperidol (Haldol) 4 mg BID PO 12/19/20 21:00 12/19/20 20:27 Current Medications Medications (Trade) Dose Ordered Sig/Melissa Route PRN Reason Start Time Stop Time Status Last Admin Dose Admin Paroxetine HCl (Paxil) 30 mg DAILY PO 12/19/20 09:00 12/19/20 11:08 Haloperidol (Haldol) 4 mg BID PO 12/19/20 21:00 12/19/20 20:27 I have reviewed the current psychotropics carefully including drug interactions. Risk benefit ratio favors no change other than as noted in my dictated progress note. Diagnosis: Problems: (1) Schizoaffective disorder, bipolar type (2) Mood disorder (3) Impulse control disorder, unspecified (4) Anxiety disorder, unspecified EDSON VILLANUEVA MD Dec 19, 2020 22:16
--- NOTE | 2020-12-19 23:20 | NUR ---
Patient is in his room on assumption of care, awake in his bed. Compliant with assessments and medications crushed in applesauce. He has not been overly attention seeking so far this shift. No delusions voiced so far this shift. No inappropriate comments. Denies any pain or discomfort. No complaints of nausea or episodes of vomiting this evening. Patient encouraged to consume liquids slowly. He appears to be sleeping comfortably at present time. Will continue to monitor.
[2020-12-20 06:07] VITALS: BP 148/96
[2020-12-20] MEDS: INSULIN LISPRO 300 UNITS/3 ML VIAL. SQ SCH ×3 (07:56→17:00)
[2020-12-20] MEDS: MULTIVITAMIN with MINERAL TABLET. PO SCH (08:45)
[2020-12-20] MEDS: HALOPERIDOL 2 MG TABLET PO SCH ×2 (08:45→19:59)
[2020-12-20] MEDS: BACLOFEN 10 MG TABLET PO SCH ×3 (08:45→19:59)
[2020-12-20] MEDS: PARoxetine 20 MG TABLET PO SCH (08:45)
[2020-12-20] MEDS: DOCUSATE SODIUM 100 MG CAPSULE PO SCH ×2 (08:45→20:00)
[2020-12-20] MEDS: DOXYCYCLINE HYCLATE 100 MG TABLET PO SCH ×2 (08:45→20:00)
[2020-12-20] MEDS: TAMSULOSIN 0.4 MG CAP.ER.24H. PO SCH (08:45)
[2020-12-20] MEDS: SENNOSIDES 8.6 MG TABLET PO SCH (08:46)
[2020-12-20] MEDS: busPIRone 15 MG TABLET. PO SCH ×3 (08:46→20:00)
[2020-12-20] MEDS: LACTOBACILLUS RHAMNOSUS GG 1 CAPSULE. PO SCH ×2 (08:46→20:01)
[2020-12-20] MEDS: SMZ/TMP 800/160MG TABLET. PO SCH ×2 (08:46→20:01)
[2020-12-20] MEDS: DIVALPROEX 125 MG CAP.SPRINK PO SCH ×3 (08:46→20:01)
[2020-12-20] MEDS: POLYETHYLENE GLYCOL 3350 17 GM PACKET. PO SCH ×2 (08:46→19:58)
--- NOTE | 2020-12-20 12:41 | RAD ---
Study: XR ABDOMEN 1V Indication: Vomiting. Comparison: CT abdomen/pelvis 12/14/2020 Findings: Generalized gaseous distention of redundant colon. Noting partial inclusion of the pelvis it appears as if there is decreased rectal distention with stool as was identified on the comparison CT. There a re no findings that would indicate small bowel obstruction. Gaseous distention of the gastric bubble. Staghorn calculi again noted in addition to osseous sequela of paraplegia. Impression: 1. Diffuse gaseous distention of redundant colon. The gastric bubble is distended as well. There are no radiographic findings to indicate small bowel obstruction and no pneumoperitoneum is apparent. The pelvis is partially included in the [id number] but the large amount of well-formed stool within t he rectum on the comparison CT appears to have decreased. A colonic ileus is favored. 2. Bilateral staghorn calculi. Electronically signed by: DALILA COLLINS MD (12/20/2020 12:39 PM) [id number]
[2020-12-20 15:58] VITALS: BP 130/90
--- NOTE | 2020-12-20 16:29 | NUR ---
Nursing note: Pt in bed at time of AM med pass and assessment. He is med compliant and cooperative. Shortly after leaving his room, pt began to yell out that he had vomited. Pt cleaned up and immediately vomited again. Pt received clear liquids for lunch and tolerated well. Dr. Aguilar notified about pt continuing to vomit after eating/drinking. Order received for KUB. Pt required assistance to move and get in the right positions for the X-Ray. Pt resistive and screaming "You broke my leg! You broke my leg!" Pt's legs were examined and were unharmed. Pt quickly began screaming at staff after examining his legs "You broke my back, you witch! You broke my back! I hate you!" Pt was readjusted in bed to a more comfortable position after KUB was done and has been more pleasant since. Will continue to monitor.
[2020-12-20] MEDS: INSULIN GLARGINE SYRINGE. SQ SCH (19:58)
[2020-12-20] MEDS: FAMOTIDINE 20 MG TABLET PO SCH (19:58)
[2020-12-20] MEDS: SIMVASTATIN 10 MG TABLET PO SCH (20:00)
--- NOTE | 2020-12-20 22:12 | PDOC ---
Exam Note: Edgar Note: Please also refer to the separate dictated note~for this date of service dictated separately.~Patient seen individually. Discussed the patient with Nursing staff reviewed the chart.~Reviewed interim history and current functioning. Reviewed vital signs,~Labs/ Radiology~and current medications noted below. Continue current treatment with the changes noted in the dictated addendum note Assessment: Vital Signs/I&O: Vital Signs Date Time Temp Pulse Resp B/P (MAP) Pulse Ox O2 Delivery O2 Flow Rate FiO2 12/20/20 15:58 97.6 89 17 130/90 (103) 98 Room Air 12/20/20 06:07 2.0 I & O 12/19/20 12/19/20 12/20/20 15:00 23:00 07:00 Intake Total 240 ml 120 ml 120 ml Balance 240 ml 120 ml 120 ml Labs: Laboratory Tests Test 12/20/20 07:42 12/20/20 16:32 12/20/20 19:13 Glucose (Fingerstick) 96 mg/dL (70-99) 106 mg/dL (70-99) H 179 mg/dL (70-99) H Current Medications: Meds: Laboratory Tests Test 12/20/20 07:42 12/20/20 16:32 12/20/20 19:13 Glucose (Fingerstick) 96 mg/dL 106 mg/dL 179 mg/dL Current Medications Medications (Trade) Dose Ordered Sig/Melissa Route PRN Reason Start Time Stop Time Status Last Admin Dose Admin Acetaminophen (Tylenol) 650 mg PRN Q6HRS PRN PO MILD PAIN / TEMP > 100.3'F 12/10/20 20:15 12/18/20 16:49 Multi-Ingredient Ointment (Analgesic [place]) 1 yisle PRN QID PRN TP MUSCLE PAIN 12/10/20 20:15 Al Hydroxide/Mg Hydroxide (Mylanta Plus Xs) 15 ml PRN AFTMEALHC PRN PO DYSPEPSIA 12/10/20 20:15 Magnesium Hydroxide (Milk Of Magnesia) 2,400 mg PRN QHS PRN PO 1ST CHOICE CONSTIPATION 12/10/20 20:15 Acetaminophen (Tylenol) 650 mg PRN Q6HRS PRN PO pain or fever 12/10/20 20:45 UNV Baclofen (Lioresal) 10 mg TID PO 12/10/20 21:00 12/20/20 19:59 Bisacodyl (Dulcolax Tab) 5 mg PRN DAILY PRN PO 3RD CHOICE CONSTIPATION 12/10/20 20:45 Buspirone HCl (Buspar) 15 mg TID PO 12/10/20 21:00 12/20/20 20:00 Divalproex Sodium (Depakote Er) 250 mg TID PO 12/10/20 21:00 12/12/20 18:37 DC 12/12/20 14:01 Docusate Sodium (Colace) 100 mg BID PO 12/10/20 21:00 12/20/20 20:00 Famotidine (Pepcid) 20 mg HS PO 12/10/20 21:00 12/20/20 19:58 Fentanyl (Duragesic 12mcg/ Hr) 1 patch Q3DAYS TD 12/12/20 09:00 12/18/20 12:25 Haloperidol (Haldol) 2 mg BID PO 12/10/20 21:00 12/19/20 18:33 DC 12/19/20 11:08 Sodium Biphosphate/ Sodium Phosphate (Fleet Adult) 133 ml PRN DAILY PRN RC 4TH CHOICE CONSTIPATION 12/10/20 20:45 12/16/20 06:24 Naloxegol (Movantik) 25 mg PRN DAILY PRN PO 2ND CHOICE CONSTIPATION 12/10/20 20:45 Paroxetine HCl (Paxil) 10 mg DAILY PO 12/11/20 09:00 12/18/20 11:40 DC 12/18/20 09:08 Polyethylene Glycol (miraLAX) 17 gm BID PO 12/10/20 21:00 12/20/20 19:58 Sennosides (Senna) 8.6 mg DAILY PO 12/11/20 09:00 12/20/20 08:46 Simvastatin (Zocor) 10 mg QHS PO 12/10/20 21:00 12/20/20 20:00 Tamsulosin HCl (Flomax) 0.4 mg DAILY PO 12/11/20 09:00 12/20/20 08:45 Insulin Human Lispro (HumaLOG) 10 units TIDWMEALS SQ 12/11/20 08:00 12/13/20 16:29 DC 12/13/20 12:31 Insulin Glargine (Lantus Syringe) 25 unit QHS SQ 12/10/20 21:00 12/20/20 19:58 Lactobacillus Rhamnosus (Culturelle) 1 cap BID PO 12/10/20 21:00 12/20/20 20:01 Multivitamins/ Calcium (Thera-M Plus) 1 tab DAILY PO 12/11/20 09:00 12/20/20 08:45 Paroxetine HCl (Paxil) 40 mg DAILY PO 12/11/20 09:00 12/18/20 11:40 DC 12/18/20 09:08 Divalproex Sodium (Depakote Sprinkles) 250 mg 0900,1400 PO 12/13/20 09:00 12/20/20 15:49 Divalproex Sodium (Depakote Sprinkles) 500 mg QHS PO 12/12/20 21:00 12/20/20 20:01 Insulin Human Lispro (HumaLOG) 5 units TIDWMEALS SQ 12/13/20 16:30 12/18/20 16:53 Ondansetron HCl (Zofran Odt) 4 mg PRN Q4HRS PRN PO NAUSEA/VOMITING 12/14/20 09:30 12/16/20 17:46 Methylnaltrexone [place] (Relistor) 12 mg ONCE ONCE SQ 12/14/20 16:00 12/14/20 16:01 DC 12/14/20 18:09 Olanzapine (ZyPREXA ZYDIS) 2.5 mg PRN Q2HRS PRN PO PSYCHOSIS 12/14/20 16:30 Lidocaine HCl (Glydo (Lidocaine) Jelly) 1 yisel 1X ONCE MM 12/15/20 16:15 12/15/20 16:16 DC 12/15/20 16:15 Nystatin (Nystop) 15 yisel STK-MED ONCE TP 12/16/20 02:29 12/16/20 02:30 DC Trimethoprim/ Sulfamethoxazole (Bactrim Ds) 1 tab BID PO 12/17/20 12:00 12/23/20 23:50 12/20/20 20:01 Doxycycline Hyclate (Vibra-Tab) 100 mg BID PO 12/17/20 12:00 12/23/20 23:50 12/20/20 20:00 Paroxetine HCl (Paxil) 30 mg DAILY PO 12/19/20 09:00 12/20/20 08:45 Haloperidol (Haldol) 4 mg BID PO 12/19/20 21:00 12/20/20 19:59 I have reviewed the current psychotropics carefully including drug interactions. Risk benefit ratio favors no change other than as noted in my dictated progress note. Diagnosis: Problems: (1) Schizoaffective disorder, bipolar type (2) Mood disorder (3) Impulse control disorder, unspecified (4) Anxiety disorder, unspecified EDSON VILLANUEVA MD Dec 20, 2020 22:12
--- NOTE | 2020-12-20 23:59 | NUR ---
Patient is in his room on assumption of care, awake in his bed. Compliant with assessments and medications crushed in applesauce. Cooperative with bed bath. He has not been overly attention seeking so far this shift. No delusions voiced so far this shift. No inappropriate comments. Denies any pain or discomfort. Despite being encouraged to consume liquids slowly, patient gulped down some gatorade and had an episode of emesis. No further complaints of nausea since. He appears to be sleeping comfortably at present time. Will continue to monitor.
[2020-12-21 06:13] VITALS: BP 125/83
[2020-12-21] MEDS: INSULIN LISPRO 300 UNITS/3 ML VIAL. SQ SCH ×3 (08:00→17:00)
[2020-12-21] MEDS: LACTOBACILLUS RHAMNOSUS GG 1 CAPSULE. PO SCH ×2 (09:00→19:38)
[2020-12-21] MEDS: MULTIVITAMIN with MINERAL TABLET. PO SCH (09:00)
[2020-12-21] MEDS: POLYETHYLENE GLYCOL 3350 17 GM PACKET. PO SCH ×2 (09:00→19:41)
--- NOTE | 2020-12-21 09:22 | PDOC ---
Exam Note: Edgar Note: This note is a late entry for 12/18/2020 covers elements not covered in my initial note. Subjective: This is my first visit with the patient since 12/06/[address] Ang covered for me during my vacation. Reviewed information with Dr. Ang, reviewed current and past records, reviewed interim history and circumstances prompting this referral for inpatient psychiatric stabilization. The patient was reviewed at treatment team meeting individually in the morning on 12/18/2020 with Tejal De Leon, Lori Carter (social media marketing specialist), Betty, activity therapy and Jose Eduardo CHIRINOS, discussed and reviewed the chart. The patient slept 7 hours previous night. He needs a Joi lift for movements. He was referred for inpatient psychiatry service by his primary care physician Dr. Lino. He has had some sexually inappropriate behaviors with nursing staff, recently complained of increased vomiting, somewhat grandiose, making sexually i nappropriate comments. He drinks with the straw. He is on Bactrim and doxycycline for left leg cellulitis. Urine reflex to culture. At admission he had fecal impaction. Received Enema and is better since then. Blood sugars have been somewhat low. He remains somewhat grandiose, talking about that he would be the next Anne. He does need continuous oxygen. We will defer medical management to Dr. Lino/Dr. Aguilar. Review of Systems: Ambulation impaired in bed. No CV, , GI system symptoms on review. He does complain of nausea. Mental Status Exam: The patient is oriented to himself and situation. Speech coherent has some latency. Abstraction fair. Computation impaired. Language function intact. Mood and affect withdrawn, labile at times. Laboratory Data: Reviewed. Impression: Bipolar disorder mixed with psychotic features. Anxiety disorder unspecified. Impulse control disorder unspecified. Plan: Given some of his manic symptoms, we will reduce Paxil from 50 mg a day down to 30 mg a day. Continue Depakote at current dosage. Level therapeutic at 81. Maintain BuSpar along with Haldol which we may need to increase as a antipsychotic. Adjust further as clinically indicated. Assessment: Vital Signs/I&O: Vital Signs Date Time Temp Pulse Resp B/P (MAP) Pulse Ox O2 Delivery O2 Flow Rate FiO2 12/21/20 06:13 98.2 97 18 125/83 (97) 94 10/2/21 15:58 Room Air 12/20/20 06:07 2.0 I & O 12/20/20 12/20/20 12/21/20 15:00 23:00 07:00 Intake Total 360 ml 720 ml Balance 360 ml 720 ml Labs: Laboratory Tests Test 12/20/20 16:32 12/20/20 19:13 12/21/20 07:40 Glucose (Fingerstick) 106 mg/dL (70-99) H 179 mg/dL (70-99) H 99 mg/dL (70-99) Current Medications: Meds: Laboratory Tests Test 12/20/20 16:32 12/20/20 19:13 12/21/20 07:40 Glucose (Fingerstick) 106 mg/dL 179 mg/dL 99 mg/dL Current Medications Medications (Trade) Dose Ordered Sig/Melissa Route PRN Reason Start Time Stop Time Status Last Admin Dose Admin Acetaminophen (Tylenol) 650 mg PRN Q6HRS PRN PO MILD PAIN / TEMP > 100.3'F 12/10/20 20:15 12/18/20 16:49 Multi-Ingredient Ointment (Analgesic [place]) 1 yisel PRN QID PRN TP MUSCLE PAIN 12/10/20 20:15 Al Hydroxide/Mg Hydroxide (Mylanta Plus Xs) 15 ml PRN AFTMEALHC PRN PO DYSPEPSIA 12/10/20 20:15 Magnesium Hydroxide (Milk Of Magnesia) 2,400 mg PRN QHS PRN PO 1ST CHOICE CONSTIPATION 12/10/20 20:15 Acetaminophen (Tylenol) 650 mg PRN Q6HRS PRN PO pain or fever 12/10/20 20:45 UNV Baclofen (Lioresal) 10 mg TID PO 12/10/20 21:00 12/20/20 19:59 Bisacodyl (Dulcolax Tab) 5 mg PRN DAILY PRN PO 3RD CHOICE CONSTIPATION 12/10/20 20:45 Buspirone HCl (Buspar) 15 mg TID PO 12/10/20 21:00 12/20/20 20:00 Divalproex Sodium (Depakote Er) 250 mg TID PO 12/10/20 21:00 12/12/20 18:37 DC 12/12/20 14:01 Docusate Sodium (Colace) 100 mg BID PO 12/10/20 21:00 12/20/20 20:00 Famotidine (Pepcid) 20 mg HS PO 12/10/20 21:00 12/20/20 19:58 Fentanyl (Duragesic 12mcg/ Hr) 1 patch Q3DAYS TD 12/12/20 09:00 12/18/20 12:25 Haloperidol (Haldol) 2 mg BID PO 12/10/20 21:00 12/19/20 18:33 DC 12/19/20 11:08 Sodium Biphosphate/ Sodium Phosphate (Fleet Adult) 133 ml PRN DAILY PRN RC 4TH CHOICE CONSTIPATION 12/10/20 20:45 12/16/20 06:24 Naloxegol (Movantik) 25 mg PRN DAILY PRN PO 2ND CHOICE CONSTIPATION 12/10/20 20:45 Paroxetine HCl (Paxil) 10 mg DAILY PO 12/11/20 09:00 12/18/20 11:40 DC 12/18/20 09:08 Polyethylene Glycol (miraLAX) 17 gm BID PO 12/10/20 21:00 12/20/20 19:58 Sennosides (Senna) 8.6 mg DAILY PO 12/11/20 09:00 12/20/20 08:46 Simvastatin (Zocor) 10 mg QHS PO 12/10/20 21:00 12/20/20 20:00 Tamsulosin HCl (Flomax) 0.4 mg DAILY PO 12/11/20 09:00 12/20/20 08:45 Insulin Human Lispro (HumaLOG) 10 units TIDWMEALS SQ 12/11/20 08:00 12/13/20 16:29 DC 12/13/20 12:31 Insulin Glargine (Lantus Syringe) 25 unit QHS SQ 12/10/20 21:00 12/20/20 19:58 Lactobacillus Rhamnosus (Culturelle) 1 cap BID PO 12/10/20 21:00 12/20/20 20:01 Multivitamins/ Calcium (Thera-M Plus) 1 tab DAILY PO 12/11/20 09:00 12/20/20 08:45 Paroxetine HCl (Paxil) 40 mg DAILY PO 12/11/20 09:00 12/18/20 11:40 DC 12/18/20 09:08 Divalproex Sodium (Depakote Sprinkles) 250 mg 0900,1400 PO 12/13/20 09:00 12/20/20 15:49 Divalproex Sodium (Depakote Sprinkles) 500 mg QHS PO 12/12/20 21:00 12/20/20 20:01 Insulin Human Lispro (HumaLOG) 5 units TIDWMEALS SQ 12/13/20 16:30 12/18/20 16:53 Ondansetron HCl (Zofran Odt) 4 mg PRN Q4HRS PRN PO NAUSEA/VOMITING 12/14/20 09:30 12/16/20 17:46 Methylnaltrexone Trufant (Relistor) 12 mg ONCE ONCE SQ 12/14/20 16:00 12/14/20 16:01 DC 12/14/20 18:09 Olanzapine (ZyPREXA ZYDIS) 2.5 mg PRN Q2HRS PRN PO PSYCHOSIS 12/14/20 16:30 Lidocaine HCl (Glydo (Lidocaine) Jelly) 1 yisel 1X ONCE MM 12/15/20 16:15 12/15/20 16:16 DC 12/15/20 16:15 Nystatin (Nystop) 15 yisel STK-MED ONCE TP 12/16/20 02:29 12/16/20 02:30 DC Trimethoprim/ Sulfamethoxazole (Bactrim Ds) 1 tab BID PO 12/17/20 12:00 12/23/20 23:50 12/20/20 20:01 Doxycycline Hyclate (Vibra-Tab) 100 mg BID PO 12/17/20 12:00 12/23/20 23:50 12/20/20 20:00 Paroxetine HCl (Paxil) 30 mg DAILY PO 12/19/20 09:00 12/20/20 08:45 Haloperidol (Haldol) 4 mg BID PO 12/19/20 21:00 12/20/20 19:59 I have reviewed the current psychotropics carefully including drug interactions. Risk benefit ratio favors no change other than as noted in my dictated progress note. Diagnosis: Problems: (1) Bipolar disorder, current episode mixed, severe, with psychotic features (2) Impulse control disorder, unspecified (3) Anxiety disorder, unspecified EDSON VILLANUEVA MD Dec 21, 2020 09:22
--- NOTE | 2020-12-21 09:41 | PDOC ---
Exam Note: Edgar Note: This note is a late entry for 12/19/2020 covers elements not covered in my initial note. Subjective: The patient was seen individually in the evening of 12/19/2020 with Stacie CHIRINOS, discussed and reviewed the chart. The patient slept 7-1/4 hours previous night. He was delusional previous night, less sexually inappropriate but this persists. During the day today he was sexually inappropriate with the nursing staff and grandiose, talking about owning some [employer] stores. He has had some vomiting during the day post eating. We will defer to Dr. Aguilar/Dr. Lino. He remains psychotic and we will increase Haldol from 2 mg b.i.d. to 4 mg b.i.d. He is also somewhat grandiose. Paxil is at 50 mg a day. We will reduce to 30 mg a day to help with some of the manic symptoms. UA is contaminated. Review of Systems: Ambulation impaired in bed. No CV, , GI system symptoms on review. Mental Status Exam: The patient is oriented to himself and situation. Speech moderate latency. Often response is monosyllabic. Abstraction fair. Computation impaired. Language function intact. Mood and affect somewhat withdrawn. Laboratory Data: Reviewed. Impression: Bipolar disorder mixed with psychotic features. Anxiety disorder unspecified. Impulse control disorder unspecified. Plan: Continue current psychotropics and changes as noted above. Assessment: Vital Signs/I&O: Vital Signs Date Time Temp Pulse Resp B/P (MAP) Pulse Ox O2 Delivery O2 Flow Rate FiO2 12/21/20 06:13 98.2 97 18 125/83 (97) 94 12/20/20 15:58 Room Air 12/20/20 06:07 2.0 I & O 12/20/20 12/20/20 12/21/20 15:00 23:00 07:00 Intake Total 360 ml 720 ml Balance 360 ml 720 ml Labs: Laboratory Tests Test 12/20/20 16:32 12/20/20 19:13 12/21/20 07:40 Glucose (Fingerstick) 106 mg/dL (70-99) H 179 mg/dL (70-99) H 99 mg/dL (70-99) Current Medications: Meds: Laboratory Tests Test 12/20/20 16:32 12/20/20 19:13 12/21/20 07:40 Glucose (Fingerstick) 106 mg/dL 179 mg/dL 99 mg/dL Current Medications Medications (Trade) Dose Ordered Sig/Melissa Route PRN Reason Start Time Stop Time Status Last Admin Dose Admin Acetaminophen (Tylenol) 650 mg PRN Q6HRS PRN PO MILD PAIN / TEMP > 100.3'F 12/10/20 20:15 12/18/20 16:49 Multi-Ingredient Ointment (Analgesic [place]) 1 yisel PRN QID PRN TP MUSCLE PAIN 12/10/20 20:15 Al Hydroxide/Mg Hydroxide (Mylanta Plus Xs) 15 ml PRN AFTMEALHC PRN PO DYSPEPSIA 12/10/20 20:15 Magnesium Hydroxide (Milk Of Magnesia) 2,400 mg PRN QHS PRN PO 1ST CHOICE CONSTIPATION 12/10/20 20:15 Acetaminophen (Tylenol) 650 mg PRN Q6HRS PRN PO pain or fever 12/10/20 20:45 UNV Baclofen (Lioresal) 10 mg TID PO 12/10/20 21:00 12/20/20 19:59 Bisacodyl (Dulcolax Tab) 5 mg PRN DAILY PRN PO 3RD CHOICE CONSTIPATION 12/10/20 20:45 Buspirone HCl (Buspar) 15 mg TID PO 12/10/20 21:00 12/20/20 20:00 Divalproex Sodium (Depakote Er) 250 mg TID PO 12/10/20 21:00 12/12/20 18:37 DC 12/12/20 14:01 Docusate Sodium (Colace) 100 mg BID PO 12/10/20 21:00 12/20/20 20:00 Famotidine (Pepcid) 20 mg HS PO 12/10/20 21:00 12/20/20 19:58 Fentanyl (Duragesic 12mcg/ Hr) 1 patch Q3DAYS TD 12/12/20 09:00 12/18/20 12:25 Haloperidol (Haldol) 2 mg BID PO 12/10/20 21:00 12/19/20 18:33 DC 12/19/20 11:08 Sodium Biphosphate/ Sodium Phosphate (Fleet Adult) 133 ml PRN DAILY PRN RC 4TH CHOICE CONSTIPATION 12/10/20 20:45 12/16/20 06:24 Naloxegol (Movantik) 25 mg PRN DAILY PRN PO 2ND CHOICE CONSTIPATION 12/10/20 20:45 Paroxetine HCl (Paxil) 10 mg DAILY PO 12/11/20 09:00 12/18/20 11:40 DC 12/18/20 09:08 Polyethylene Glycol (miraLAX) 17 gm BID PO 12/10/20 21:00 12/20/20 19:58 Sennosides (Senna) 8.6 mg DAILY PO 12/11/20 09:00 12/20/20 08:46 Simvastatin (Zocor) 10 mg QHS PO 12/10/20 21:00 12/20/20 20:00 Tamsulosin HCl (Flomax) 0.4 mg DAILY PO 12/11/20 09:00 12/20/20 08:45 Insulin Human Lispro (HumaLOG) 10 units TIDWMEALS SQ 12/11/20 08:00 12/13/20 16:29 DC 12/13/20 12:31 Insulin Glargine (Lantus Syringe) 25 unit QHS SQ 12/10/20 21:00 12/20/20 19:58 Lactobacillus Rhamnosus (Culturelle) 1 cap BID PO 12/10/20 21:00 12/20/20 20:01 Multivitamins/ Calcium (Thera-M Plus) 1 tab DAILY PO 12/11/20 09:00 12/20/20 08:45 Paroxetine HCl (Paxil) 40 mg DAILY PO 12/11/20 09:00 12/18/20 11:40 DC 12/18/20 09:08 Divalproex Sodium (Depakote Sprinkles) 250 mg 0900,1400 PO 12/13/20 09:00 12/20/20 15:49 Divalproex Sodium (Depakote Sprinkles) 500 mg QHS PO 12/12/20 21:00 12/20/20 20:01 Insulin Human Lispro (HumaLOG) 5 units TIDWMEALS SQ 12/13/20 16:30 12/18/20 16:53 Ondansetron HCl (Zofran Odt) 4 mg PRN Q4HRS PRN PO NAUSEA/VOMITING 12/14/20 09:30 12/16/20 17:46 Methylnaltrexone [place] (Relistor) 12 mg ONCE ONCE SQ 12/14/20 16:00 12/14/20 16:01 DC 12/14/20 18:09 Olanzapine (ZyPREXA ZYDIS) 2.5 mg PRN Q2HRS PRN PO PSYCHOSIS 12/14/20 16:30 Lidocaine HCl (Glydo (Lidocaine) Jelly) 1 yisel 1X ONCE MM 12/15/20 16:15 12/15/20 16:16 DC 12/15/20 16:15 Nystatin (Nystop) 15 yisel STK-MED ONCE TP 12/16/20 02:29 12/16/20 02:30 DC Trimethoprim/ Sulfamethoxazole (Bactrim Ds) 1 tab BID PO 12/17/20 12:00 12/23/20 23:50 12/20/20 20:01 Doxycycline Hyclate (Vibra-Tab) 100 mg BID PO 12/17/20 12:00 12/23/20 23:50 12/20/20 20:00 Paroxetine HCl (Paxil) 30 mg DAILY PO 12/19/20 09:00 12/20/20 08:45 Haloperidol (Haldol) 4 mg BID PO 12/19/20 21:00 12/20/20 19:59 I have reviewed the current psychotropics carefully including drug interactions. Risk benefit ratio favors no change other than as noted in my dictated progress note. Diagnosis: Problems: (1) Mood disorder (2) Impulse control disorder, unspecified (3) Anxiety disorder, unspecified (4) Bipolar disorder, current episode mixed, severe, with psychotic features EDSON VILLANUEVA MD Dec 21, 2020 09:41
[2020-12-21] MEDS: PARoxetine 20 MG TABLET PO SCH (09:42)
[2020-12-21] MEDS: DOCUSATE SODIUM 100 MG CAPSULE PO SCH ×2 (09:42→19:36)
[2020-12-21] MEDS: busPIRone 15 MG TABLET. PO SCH ×3 (09:43→19:37)
[2020-12-21] MEDS: TAMSULOSIN 0.4 MG CAP.ER.24H. PO SCH (09:43)
[2020-12-21] MEDS: DIVALPROEX 125 MG CAP.SPRINK PO SCH ×3 (09:43→19:35)
[2020-12-21] MEDS: DOXYCYCLINE HYCLATE 100 MG TABLET PO SCH ×2 (09:43→19:38)
[2020-12-21] MEDS: SENNOSIDES 8.6 MG TABLET PO SCH (09:43)
[2020-12-21] MEDS: SMZ/TMP 800/160MG TABLET. PO SCH ×2 (09:43→19:37)
[2020-12-21] MEDS: HALOPERIDOL 2 MG TABLET PO SCH ×2 (09:43→19:36)
[2020-12-21] MEDS: BACLOFEN 10 MG TABLET PO SCH ×3 (09:43→19:38)
[2020-12-21] MEDS: fentaNYL 12MCG/HR 1 PATCH PATCH TD SCH (09:44)
[2020-12-21] MEDS: ONDANSETRON ODT 4 MG TAB.RAPDIS PO PRN (09:53)
--- NOTE | 2020-12-21 09:53 | NUR ---
Pt A&O to self only, he take a long pause before answering questions. No evidence of VH/AH/delusions at this time. He is compliant with medications crushed and mixed into pudding. He has intermittent episodes of yelling out and acting helpless. No verbal/physical behaviors observed, no sexual comments expressed by pt. Pt denies SI/HI when asked. Plan of care continues, will pass to next shift.
--- NOTE | 2020-12-21 10:28 | NUR ---
Pt c/o nausea after morning medication administration. PRN Zofran 4 mg PO administered at his request.
--- NOTE | 2020-12-21 11:56 | NUR ---
D/t pt's multiple episodes of emesis daily, staff is providing water in 240 mL increments with 1 hour between refills. The purpose of this is to prevent pt from chugging large volumes of liquids in a rapid fashion with his continuous nausea/vomiting and increasing the risk of additional vomiting. Pt is not receptive to this approach and explanation and will frequently scream from his room for more water and refer to staff as "mother fuckers" and "bitches."
[2020-12-21 16:15] VITALS: BP 127/80
[2020-12-21 16:25] VITALS: BP 149/84
--- NOTE | 2020-12-21 16:25 | NUR ---
Approx 1530 DOG TRAINER informed this nurse that pt's HR was elevated. BP 149/84, HR 127, RR 20, O2 96% NC at 2 LPM, T 99.3, blood glucose 80. Pt appeared to be laying in bed, no signs of distress, and he denies pain. Pt's breathing even equal and unlabored, breath sounds clear. Pt denies pain or discomfort. 8 oz of thickened apple juice provided. VS and blood glucose obtained at approx 1615: BP 127/80, HR 117, O2 96% NC at 2 LPM, T 97.8, RR 20, blood glucose 100. Pt remains laying in bed calm absent of distress. He did display elevated anxiety while having BP obtained; squirming and crying out about how much it "hurt" when the BP cuff was inflated on his arm. Labs from 12/19/20 reviewed, medications reviewed, VS trends since admission reviewed. Manual pulse obtained at approx 1650: HR 110. PRN Zyprexa 2.5 mg PO administered for anxiety. Dr Jeff singh, waiting for callback. Addendum: 12/21/20 at 1753 by DANIEL HUANG RN Incorrect time stamp for note. Time note entered is 1650
--- NOTE | 2020-12-21 17:00 | NUR ---
Received call back from Dr Aguilar, received the following orders: Chem B now, Atenolol 50 mg PO daily give dose now. Orders read back and verified.
[2020-12-21] MEDS: ATENOLOL 50 MG TABLET PO SCH (17:42)
[2020-12-21 18:02] LABS: CALCIUM 9.2 mg/dL (8.5-10.1); CREATININE 1.1 mg/dL (0.7-1.3); GFR 70.9; POTASSIUM 3.3 mmol/L (3.5-5.1)
[2020-12-21] MEDS: POTASSIUM CHLORIDE 20 MEQ TABLET.ER. PO SCH (19:33)
[2020-12-21] MEDS: FAMOTIDINE 20 MG TABLET PO SCH (19:37)
[2020-12-21] MEDS: SIMVASTATIN 10 MG TABLET PO SCH (19:37)
[2020-12-21] MEDS: INSULIN GLARGINE SYRINGE. SQ SCH (19:40)
--- NOTE | 2020-12-21 22:07 | PDOC ---
Exam Note: Edgar Note: Please also refer to the separate dictated note~for this date of service dictated separately.~Patient seen individually. Discussed the patient with Nursing staff reviewed the chart.~Reviewed interim history and current functioning. Reviewed vital signs,~Labs/ Radiology~and current medications noted below. Continue current treatment with the changes noted in the dictated addendum note Assessment: Vital Signs/I&O: Vital Signs Date Time Temp Pulse Resp B/P (MAP) Pulse Ox O2 Delivery O2 Flow Rate FiO2 12/21/20 17:42 110 149/84 12/21/20 16:25 99.3 18 96 12/21/20 13:36 Nasal Cannula 2.0 I & O 12/20/20 12/20/20 12/21/20 15:00 23:00 07:00 Intake Total 360 ml 720 ml Balance 360 ml 720 ml Labs: Laboratory Tests Test 12/21/20 05:10 12/21/20 07:40 12/21/20 11:30 12/21/20 15:34 SARS-CoV-2 (PCR) Not detected (NOT DETECTD) Glucose (Fingerstick) 99 mg/dL (70-99) 109 mg/dL (70-99) H 80 mg/dL (70-99) Test 12/21/20 16:16 12/21/20 17:40 12/21/20 19:52 Glucose (Fingerstick) 100 mg/dL (70-99) H 158 mg/dL (70-99) H Sodium Level 140 mmol/L (136-145) Potassium Level 3.3 mmol/L (3.5-5.1) L Chloride Level 104 mmol/L (98-107) Carbon Dioxide Level 23 mmol/L (21-32) Anion Gap 13 (6-14) Blood Urea Nitrogen 12 mg/dL (8-26) Creatinine 1.1 mg/dL (0.7-1.3) Estimated GFR (Cockcroft-Gault) 70.9 Glucose Level 219 mg/dL (70-99) H Calcium Level 9.2 mg/dL (8.5-10.1) Current Medications: Meds: Laboratory Tests Test 12/21/20 05:10 12/21/20 07:40 12/21/20 11:30 12/21/20 15:34 Coronavirus (COVID-19)(PCR) Not detected Glucose (Fingerstick) 99 mg/dL 109 mg/dL 80 mg/dL Test 12/21/20 16:16 12/21/20 17:40 12/21/20 19:52 Glucose (Fingerstick) 100 mg/dL 158 mg/dL Sodium Level 140 mmol/L Potassium Level 3.3 mmol/L Chloride Level 104 mmol/L Carbon Dioxide Level 23 mmol/L Anion Gap 13 Blood Urea Nitrogen 12 mg/dL Creatinine 1.1 mg/dL Estimated GFR (Cockcroft-Gault) 70.9 Glucose Level 219 mg/dL Calcium Level 9.2 mg/dL Current Medications Medications (Trade) Dose Ordered Sig/Melissa Route PRN Reason Start Time Stop Time Status Last Admin Dose Admin Acetaminophen (Tylenol) 650 mg PRN Q6HRS PRN PO MILD PAIN / TEMP > 100.3'F 12/10/20 20:15 12/18/20 16:49 Multi-Ingredient Ointment (Analgesic [place]) 1 yisel PRN QID PRN TP MUSCLE PAIN 12/10/20 20:15 Al Hydroxide/Mg Hydroxide (Mylanta Plus Xs) 15 ml PRN AFTMEALHC PRN PO DYSPEPSIA 12/10/20 20:15 Magnesium Hydroxide (Milk Of Magnesia) 2,400 mg PRN QHS PRN PO 1ST CHOICE CONSTIPATION 12/10/20 20:15 Acetaminophen (Tylenol) 650 mg PRN Q6HRS PRN PO pain or fever 12/10/20 20:45 UNV Baclofen (Lioresal) 10 mg TID PO 12/10/20 21:00 12/21/20 19:38 Bisacodyl (Dulcolax Tab) 5 mg PRN DAILY PRN PO 3RD CHOICE CONSTIPATION 12/10/20 20:45 Buspirone HCl (Buspar) 15 mg TID PO 12/10/20 21:00 12/21/20 19:37 Divalproex Sodium (Depakote Er) 250 mg TID PO 12/10/20 21:00 12/12/20 18:37 DC 12/12/20 14:01 Docusate Sodium (Colace) 100 mg BID PO 12/10/20 21:00 12/21/20 19:36 Famotidine (Pepcid) 20 mg HS PO 12/10/20 21:00 12/21/20 19:37 Fentanyl (Duragesic 12mcg/ Hr) 1 patch Q3DAYS TD 12/12/20 09:00 12/21/20 09:44 Haloperidol (Haldol) 2 mg BID PO 12/10/20 21:00 12/19/20 18:33 DC 12/19/20 11:08 Sodium Biphosphate/ Sodium Phosphate (Fleet Adult) 133 ml PRN DAILY PRN RC 4TH CHOICE CONSTIPATION 12/10/20 20:45 12/16/20 06:24 Naloxegol (Movantik) 25 mg PRN DAILY PRN PO 2ND CHOICE CONSTIPATION 12/10/20 20:45 Paroxetine HCl (Paxil) 10 mg DAILY PO 12/11/20 09:00 12/18/20 11:40 DC 12/18/20 09:08 Polyethylene Glycol (miraLAX) 17 gm BID PO 12/10/20 21:00 12/21/20 19:41 Sennosides (Senna) 8.6 mg DAILY PO 12/11/20 09:00 12/21/20 09:43 Simvastatin (Zocor) 10 mg QHS PO 12/10/20 21:00 12/21/20 19:37 Tamsulosin HCl (Flomax) 0.4 mg DAILY PO 12/11/20 09:00 12/21/20 09:43 Insulin Human Lispro (HumaLOG) 10 units TIDWMEALS SQ 12/11/20 08:00 12/13/20 16:29 DC 12/13/20 12:31 Insulin Glargine (Lantus Syringe) 25 unit QHS SQ 12/10/20 21:00 12/21/20 19:40 Lactobacillus Rhamnosus (Culturelle) 1 cap BID PO 12/10/20 21:00 12/21/20 19:38 Multivitamins/ Calcium (Thera-M Plus) 1 tab DAILY PO 12/11/20 09:00 12/20/20 08:45 Paroxetine HCl (Paxil) 40 mg DAILY PO 12/11/20 09:00 12/18/20 11:40 DC 12/18/20 09:08 Divalproex Sodium (Depakote Sprinkles) 250 mg 0900,1400 PO 12/13/20 09:00 12/21/20 12:46 Divalproex Sodium (Depakote Sprinkles) 500 mg QHS PO 12/12/20 21:00 12/21/20 19:35 Insulin Human Lispro (HumaLOG) 5 units TIDWMEALS SQ 12/13/20 16:30 12/18/20 16:53 Ondansetron HCl (Zofran Odt) 4 mg PRN Q4HRS PRN PO NAUSEA/VOMITING 12/14/20 09:30 12/21/20 09:53 Methylnaltrexone [place] (Relistor) 12 mg ONCE ONCE SQ 12/14/20 16:00 12/14/20 16:01 DC 12/14/20 18:09 Olanzapine (ZyPREXA ZYDIS) 2.5 mg PRN Q2HRS PRN PO PSYCHOSIS 12/14/20 16:30 12/21/20 17:01 Lidocaine HCl (Glydo (Lidocaine) Jelly) 1 yisel 1X ONCE MM 12/15/20 16:15 12/15/20 16:16 DC 12/15/20 16:15 Nystatin (Nystop) 15 yisel STK-MED ONCE TP 12/16/20 02:29 12/16/20 02:30 DC Trimethoprim/ Sulfamethoxazole (Bactrim Ds) 1 tab BID PO 12/17/20 12:00 12/23/20 23:50 12/21/20 19:37 Doxycycline Hyclate (Vibra-Tab) 100 mg BID PO 12/17/20 12:00 12/23/20 23:50 12/21/20 19:38 Paroxetine HCl (Paxil) 30 mg DAILY PO 12/19/20 09:00 12/21/20 20:10 DC 12/21/20 09:42 Haloperidol (Haldol) 4 mg BID PO 12/19/20 21:00 12/21/20 19:36 Atenolol (Tenormin) 50 mg DAILY PO 12/21/20 17:30 12/21/20 17:42 Potassium Chloride (Klor-Con) 20 meq DAILY PO 12/21/20 18:50 12/21/20 19:33 Paroxetine HCl (Paxil) 20 mg DAILY PO 12/22/20 09:00 Current Medications Medications (Trade) Dose Ordered Sig/Melissa Route PRN Reason Start Time Stop Time Status Last Admin Dose Admin Atenolol (Tenormin) 50 mg DAILY PO 12/21/20 17:30 12/21/20 17:42 Potassium Chloride (Klor-Con) 20 meq DAILY PO 12/21/20 18:50 12/21/20 19:33 I have reviewed the current psychotropics carefully including drug interactions. Risk benefit ratio favors no change other than as noted in my dictated progress note. Diagnosis: Problems: (1) Schizoaffective disorder, bipolar type (2) Mood disorder (3) Impulse control disorder, unspecified (4) Anxiety disorder, unspecified (5) Bipolar disorder, current episode mixed, severe, with psychotic features EDSON VILLANUEVA MD Dec 21, 2020 22:07
--- NOTE | 2020-12-21 22:57 | NUR ---
Patient is in his room on assumption of care, awake in his bed. Compliant with assessments and medications crushed in pudding. He has not been overly attention seeking so far this shift. No delusions voiced so far this shift. No inappropriate comments. Denies any pain or discomfort. No further complaints of nausea since. He appears to be sleeping comfortably at present time. Will continue to monitor.
[2020-12-22 05:37] VITALS: BP 94/61
[2020-12-22 06:32] LABS: BASO # 0.1 x10^3/uL (0.0-0.2); BASO % 1 % (0-3); EOS # 0.2 x10^3/uL (0.0-0.7); EOS % 2 % (0-3); HEMATOCRIT 41.4 % (39.0-53.0); LYMPH # 2.7 x10^3/uL (1.0-4.8); LYMPH % 27 % (24-48); MEAN CORPUSCULAR HEMOGLOBIN 27 pg (25-35); MEAN CORPUSCULAR HGB CONC 31 g/dL (31-37); MEAN CORPUSCULAR VOLUME 85 fL (79-100); MONO # 1.1 x10^3/uL (0.0-1.1); MONO % 11 % (0-9); NEUT # 5.9 x10^3uL (1.8-7.7); NEUT % 59 % (31-73); PLATELET COUNT 197 x10^3/uL (140-400); RED BLOOD COUNT 4.87 x10^6/uL (4.30-5.70); RED CELL DISTRIBUTION WIDTH 16.7 % (11.5-14.5); WHITE BLOOD COUNT 9.9 x10^3/uL (4.0-11.0)
[2020-12-22 06:37] LABS: ALBUMIN 2.8 g/dL (3.4-5.0); ALBUMIN/GLOBULIN RATIO 0.5 (1.0-1.7); CALCIUM 9.4 mg/dL (8.5-10.1); CREATININE 1.1 mg/dL (0.7-1.3); GFR 70.9; POTASSIUM 3.8 mmol/L (3.5-5.1); TOTAL BILIRUBIN 0.2 mg/dL (0.2-1.0); TOTAL PROTEIN 7.9 g/dL (6.4-8.2)
[2020-12-22] MEDS: INSULIN LISPRO 300 UNITS/3 ML VIAL. SQ SCH ×3 (08:00→17:00)
[2020-12-22] MEDS: busPIRone 15 MG TABLET. PO SCH ×3 (08:40→19:56)
[2020-12-22] MEDS: BACLOFEN 10 MG TABLET PO SCH ×3 (08:40→19:56)
[2020-12-22] MEDS: DIVALPROEX 125 MG CAP.SPRINK PO SCH ×3 (08:40→19:56)
[2020-12-22] MEDS: DOXYCYCLINE HYCLATE 100 MG TABLET PO SCH ×2 (08:40→19:56)
[2020-12-22] MEDS: LACTOBACILLUS RHAMNOSUS GG 1 CAPSULE. PO SCH ×2 (08:41→19:55)
[2020-12-22] MEDS: HALOPERIDOL 2 MG TABLET PO SCH ×2 (08:41→19:56)
[2020-12-22] MEDS: MULTIVITAMIN with MINERAL TABLET. PO SCH (08:41)
[2020-12-22] MEDS: POTASSIUM CHLORIDE 20 MEQ TABLET.ER. PO SCH (08:41)
[2020-12-22] MEDS: TAMSULOSIN 0.4 MG CAP.ER.24H. PO SCH (08:41)
[2020-12-22] MEDS: SMZ/TMP 800/160MG TABLET. PO SCH ×2 (08:42→19:56)
[2020-12-22] MEDS: PARoxetine 20 MG TABLET PO SCH (08:42)
[2020-12-22] MEDS: DOCUSATE SODIUM 100 MG CAPSULE PO SCH ×2 (08:42→19:57)
[2020-12-22] MEDS: ATENOLOL 50 MG TABLET PO SCH (08:42)
[2020-12-22] MEDS: SENNOSIDES 8.6 MG TABLET PO SCH (08:42)
[2020-12-22] MEDS: POLYETHYLENE GLYCOL 3350 17 GM PACKET. PO SCH ×2 (08:42→19:57)
--- NOTE | 2020-12-22 09:22 | PDOC ---
Exam Note: Edgar Note: This note is a late entry for 12/20/2020 covers elements not covered in my initial note. Subjective: The patient was seen individually in the evening of 12/20/2020 with Alistair CHIRINOS, discussed and reviewed the chart. The patient slept 5 hours previous night. He has been demanding, attention seeking. He is still having nausea and vomiting. We will defer to Dr. Aguilar. KUB has been requested. He is on a clear liquid diet, often using profanities and sexually inappropriate with female nursing staff. Review of Systems: Ambulation impaired in wheelchair. No CV, , eye, ENT system symptoms on review. Mental Status Exam: The patient is oriented to himself and situation. Speech moderate latency. Often response is monosyllabic. Abstraction fair. Computation impaired. Language function intact. Mood and affect somewhat withdrawn. Laboratory Data: Reviewed. Impression: Bipolar disorder mixed with psychotic features. Anxiety disorder unspecified. Impulse control disorder unspecified. Plan: Continue current psychotropics and changes as noted above. Assessment: Vital Signs/I&O: Vital Signs Date Time Temp Pulse Resp B/P (MAP) Pulse Ox O2 Delivery O2 Flow Rate FiO2 12/22/20 08:42 52 94/61 12/22/20 05:37 97.0 22 94 2.0 12/21/20 13:36 Nasal Cannula I & O 12/21/20 12/21/20 12/22/20 14:59 22:59 06:59 Intake Total 920 ml 720 ml Balance 920 ml 720 ml Labs: Laboratory Tests Test 12/21/20 11:30 12/21/20 15:34 12/21/20 16:16 12/21/20 17:40 Glucose (Fingerstick) 109 mg/dL (70-99) H 80 mg/dL (70-99) 100 mg/dL (70-99) H Sodium Level 140 mmol/L (136-145) Potassium Level 3.3 mmol/L (3.5-5.1) L Chloride Level 104 mmol/L (98-107) Carbon Dioxide Level 23 mmol/L (21-32) Anion Gap 13 (6-14) Blood Urea Nitrogen 12 mg/dL (8-26) Creatinine 1.1 mg/dL (0.7-1.3) Estimated GFR (Cockcroft-Gault) 70.9 Glucose Level 219 mg/dL (70-99) H Calcium Level 9.2 mg/dL (8.5-10.1) Test 12/21/20 19:52 12/22/20 06:05 12/22/20 07:40 Glucose (Fingerstick) 158 mg/dL (70-99) H 87 mg/dL (70-99) White Blood Count 9.9 x10^3/uL (4.0-11.0) Red Blood Count 4.87 x10^6/uL (4.30-5.70) Hemoglobin 13.0 g/dL (13.0-17.5) Hematocrit 41.4 % (39.0-53.0) Mean Corpuscular Volume 85 fL (79-100) Mean Corpuscular Hemoglobin 27 pg (25-35) Mean Corpuscular Hemoglobin Concent 31 g/dL (31-37) Red Cell Distribution Width 16.7 % (11.5-14.5) H Platelet Count 197 x10^3/uL (140-400) Neutrophils (%) (Auto) 59 % (31-73) Lymphocytes (%) (Auto) 27 % (24-48) Monocytes (%) (Auto) 11 % (0-9) H Eosinophils (%) (Auto) 2 % (0-3) Basophils (%) (Auto) 1 % (0-3) Neutrophils # (Auto) 5.9 x10^3uL (1.8-7.7) Lymphocytes # (Auto) 2.7 x10^3/uL (1.0-4.8) Monocytes # (Auto) 1.1 x10^3/uL (0.0-1.1) Eosinophils # (Auto) 0.2 x10^3/uL (0.0-0.7) Basophils # (Auto) 0.1 x10^3/uL (0.0-0.2) Sodium Level 141 mmol/L (136-145) Potassium Level 3.8 mmol/L (3.5-5.1) Chloride Level 105 mmol/L (98-107) Carbon Dioxide Level 28 mmol/L (21-32) Anion Gap 8 (6-14) Blood Urea Nitrogen 18 mg/dL (8-26) Creatinine 1.1 mg/dL (0.7-1.3) Estimated GFR (Cockcroft-Gault) 70.9 BUN/Creatinine Ratio 16 (6-20) Glucose Level 90 mg/dL (70-99) Calcium Level 9.4 mg/dL (8.5-10.1) Total Bilirubin 0.2 mg/dL (0.2-1.0) Aspartate Amino Transferase (AST) 8 U/L (15-37) L Alanine Aminotransferase (ALT) 16 U/L (16-63) Alkaline Phosphatase 59 U/L (46-116) Total Protein 7.9 g/dL (6.4-8.2) Albumin 2.8 g/dL (3.4-5.0) L Albumin/Globulin Ratio 0.5 (1.0-1.7) L Current Medications: Meds: Laboratory Tests Test 12/21/20 11:30 12/21/20 15:34 12/21/20 16:16 12/21/20 17:40 Glucose (Fingerstick) 109 mg/dL 80 mg/dL 100 mg/dL Sodium Level 140 mmol/L Potassium Level 3.3 mmol/L Chloride Level 104 mmol/L Carbon Dioxide Level 23 mmol/L Anion Gap 13 Blood Urea Nitrogen 12 mg/dL Creatinine 1.1 mg/dL Estimated GFR (Cockcroft-Gault) 70.9 Glucose Level 219 mg/dL Calcium Level 9.2 mg/dL Test 12/21/20 19:52 12/22/20 06:05 12/22/20 07:40 Glucose (Fingerstick) 158 mg/dL 87 mg/dL White Blood Count 9.9 x10^3/uL Red Blood Count 4.87 x10^6/uL Hemoglobin 13.0 g/dL Hematocrit 41.4 % Mean Corpuscular Volume 85 fL Mean Corpuscular Hemoglobin 27 pg Mean Corpuscular Hemoglobin Concent 31 g/dL Red Cell Distribution Width 16.7 % Platelet Count 197 x10^3/uL Neutrophils (%) (Auto) 59 % Lymphocytes (%) (Auto) 27 % Monocytes (%) (Auto) 11 % Eosinophils (%) (Auto) 2 % Basophils (%) (Auto) 1 % Neutrophils # (Auto) 5.9 x10^3uL Lymphocytes # (Auto) 2.7 x10^3/uL Monocytes # (Auto) 1.1 x10^3/uL Eosinophils # (Auto) 0.2 x10^3/uL Basophils # (Auto) 0.1 x10^3/uL Sodium Level 141 mmol/L Potassium Level 3.8 mmol/L Chloride Level 105 mmol/L Carbon Dioxide Level 28 mmol/L Anion Gap 8 Blood Urea Nitrogen 18 mg/dL Creatinine 1.1 mg/dL Estimated GFR (Cockcroft-Gault) 70.9 BUN/Creatinine Ratio 16 Glucose Level 90 mg/dL Calcium Level 9.4 mg/dL Total Bilirubin 0.2 mg/dL Aspartate Amino Transf (AST/SGOT) 8 U/L Alanine Aminotransferase (ALT/SGPT) 16 U/L Alkaline Phosphatase 59 U/L Total Protein 7.9 g/dL Albumin 2.8 g/dL Albumin/Globulin Ratio 0.5 Current Medications Medications (Trade) Dose Ordered Sig/Melissa Route PRN Reason Start Time Stop Time Status Last Admin Dose Admin Acetaminophen (Tylenol) 650 mg PRN Q6HRS PRN PO MILD PAIN / TEMP > 100.3'F 12/10/20 20:15 12/18/20 16:49 Multi-Ingredient Ointment (Analgesic [place]) 1 yisel PRN QID PRN TP MUSCLE PAIN 12/10/20 20:15 Al Hydroxide/Mg Hydroxide (Mylanta Plus Xs) 15 ml PRN AFTMEALHC PRN PO DYSPEPSIA 12/10/20 20:15 Magnesium Hydroxide (Milk Of Magnesia) 2,400 mg PRN QHS PRN PO 1ST CHOICE CONSTIPATION 12/10/20 20:15 Acetaminophen (Tylenol) 650 mg PRN Q6HRS PRN PO pain or fever 12/10/20 20:45 UNV Baclofen (Lioresal) 10 mg TID PO 12/10/20 21:00 12/22/20 08:40 Bisacodyl (Dulcolax Tab) 5 mg PRN DAILY PRN PO 3RD CHOICE CONSTIPATION 12/10/20 20:45 Buspirone HCl (Buspar) 15 mg TID PO 12/10/20 21:00 12/22/20 08:40 Divalproex Sodium (Depakote Er) 250 mg TID PO 12/10/20 21:00 12/12/20 18:37 DC 12/12/20 14:01 Docusate Sodium (Colace) 100 mg BID PO 12/10/20 21:00 12/22/20 08:42 Famotidine (Pepcid) 20 mg HS PO 12/10/20 21:00 12/21/20 19:37 Fentanyl (Duragesic 12mcg/ Hr) 1 patch Q3DAYS TD 12/12/20 09:00 12/21/20 09:44 Haloperidol (Haldol) 2 mg BID PO 12/10/20 21:00 12/19/20 18:33 DC 12/19/20 11:08 Sodium Biphosphate/ Sodium Phosphate (Fleet Adult) 133 ml PRN DAILY PRN RC 4TH CHOICE CONSTIPATION 12/10/20 20:45 12/16/20 06:24 Naloxegol (Movantik) 25 mg PRN DAILY PRN PO 2ND CHOICE CONSTIPATION 12/10/20 20:45 Paroxetine HCl (Paxil) 10 mg DAILY PO 12/11/20 09:00 12/18/20 11:40 DC 12/18/20 09:08 Polyethylene Glycol (miraLAX) 17 gm BID PO 12/10/20 21:00 12/22/20 08:42 Sennosides (Senna) 8.6 mg DAILY PO 12/11/20 09:00 12/22/20 08:42 Simvastatin (Zocor) 10 mg QHS PO 12/10/20 21:00 12/21/20 19:37 Tamsulosin HCl (Flomax) 0.4 mg DAILY PO 12/11/20 09:00 12/22/20 08:41 Insulin Human Lispro (HumaLOG) 10 units TIDWMEALS SQ 12/11/20 08:00 12/13/20 16:29 DC 12/13/20 12:31 Insulin Glargine (Lantus Syringe) 25 unit QHS SQ 12/10/20 21:00 12/21/20 19:40 Lactobacillus Rhamnosus (Culturelle) 1 cap BID PO 12/10/20 21:00 12/22/20 08:41 Multivitamins/ Calcium (Thera-M Plus) 1 tab DAILY PO 12/11/20 09:00 12/22/20 08:41 Paroxetine HCl (Paxil) 40 mg DAILY PO 12/11/20 09:00 12/18/20 11:40 DC 12/18/20 09:08 Divalproex Sodium (Depakote Sprinkles) 250 mg 0900,1400 PO 12/13/20 09:00 12/22/20 08:40 Divalproex Sodium (Depakote Sprinkles) 500 mg QHS PO 12/12/20 21:00 12/21/20 19:35 Insulin Human Lispro (HumaLOG) 5 units TIDWMEALS SQ 12/13/20 16:30 12/18/20 16:53 Ondansetron HCl (Zofran Odt) 4 mg PRN Q4HRS PRN PO NAUSEA/VOMITING 12/14/20 09:30 12/21/20 09:53 Methylnaltrexone [place] (Relistor) 12 mg ONCE ONCE SQ 12/14/20 16:00 12/14/20 16:01 DC 12/14/20 18:09 Olanzapine (ZyPREXA ZYDIS) 2.5 mg PRN Q2HRS PRN PO PSYCHOSIS 12/14/20 16:30 12/21/20 17:01 Lidocaine HCl (Glydo (Lidocaine) Jelly) 1 yisel 1X ONCE MM 12/15/20 16:15 12/15/20 16:16 DC 12/15/20 16:15 Nystatin (Nystop) 15 yisel STK-MED ONCE TP 12/16/20 02:29 12/16/20 02:30 DC Trimethoprim/ Sulfamethoxazole (Bactrim Ds) 1 tab BID PO 12/17/20 12:00 12/23/20 23:50 12/22/20 08:42 Doxycycline Hyclate (Vibra-Tab) 100 mg BID PO 12/17/20 12:00 12/23/20 23:50 12/22/20 08:40 Paroxetine HCl (Paxil) 30 mg DAILY PO 12/19/20 09:00 12/21/20 20:10 DC 12/21/20 09:42 Haloperidol (Haldol) 4 mg BID PO 12/19/20 21:00 12/22/20 08:41 Atenolol (Tenormin) 50 mg DAILY PO 12/21/20 17:30 12/22/20 08:42 Potassium Chloride (Klor-Con) 20 meq DAILY PO 12/21/20 18:50 12/22/20 08:41 Paroxetine HCl (Paxil) 20 mg DAILY PO 12/22/20 09:00 12/22/20 08:42 Current Medications Medications (Trade) Dose Ordered Sig/Melissa Route PRN Reason Start Time Stop Time Status Last Admin Dose Admin Atenolol (Tenormin) 50 mg DAILY PO 12/21/20 17:30 12/22/20 08:42 Potassium Chloride (Klor-Con) 20 meq DAILY PO 12/21/20 18:50 12/22/20 08:41 Paroxetine HCl (Paxil) 20 mg DAILY PO 12/22/20 09:00 12/22/20 08:42 I have reviewed the current psychotropics carefully including drug interactions. Risk benefit ratio favors no change other than as noted in my dictated progress note. Diagnosis: Problems: (1) Schizoaffective disorder, bipolar type (2) Mood disorder (3) Impulse control disorder, unspecified (4) Anxiety disorder, unspecified (5) Bipolar disorder, current episode mixed, severe, with psychotic features EDSON VILLANUEVA MD Dec 22, 2020 09:22
[2020-12-22 15:46] VITALS: BP 98/64
--- NOTE | 2020-12-22 18:22 | NUR ---
Patient has been preoccupied with drinking water today, repeatedly asking for water to drink. He is on a schedule to prevent him from vomiting as he drinks anything provided excessively fast and then vomits. He has tolerated nectar thick liquids well. He states he cannot pee because he has not drank enough water; he had 1380mL of fluids this afternoon. Patient was hallucinating and started screaming for 'Win' to get out of his room before dinner, there was no one in his room at the time. He calmed down with verbal redirection and has been calm since then. Will continue to monitor and report to oncoming shift.
[2020-12-22] MEDS: FAMOTIDINE 20 MG TABLET PO SCH (19:56)
[2020-12-22] MEDS: SIMVASTATIN 10 MG TABLET PO SCH (19:56)
[2020-12-22] MEDS: INSULIN GLARGINE SYRINGE. SQ SCH (21:48)
--- NOTE | 2020-12-22 21:55 | PDOC ---
Exam Note: Edgar Note: Please also refer to the separate dictated note~for this date of service dictated separately.~Patient seen individually. Discussed the patient with Nursing staff reviewed the chart.~Reviewed interim history and current functioning. Reviewed vital signs,~Labs/ Radiology~and current medications noted below. Continue current treatment with the changes noted in the dictated addendum note Assessment: Vital Signs/I&O: Vital Signs Date Time Temp Pulse Resp B/P (MAP) Pulse Ox O2 Delivery O2 Flow Rate FiO2 12/22/20 15:46 97.3 52 16 98/64 (75) 94 Room Air 12/22/20 05:37 2.0 I & O 12/21/20 12/21/20 12/22/20 15:00 23:00 07:00 Intake Total 920 ml 720 ml Balance 920 ml 720 ml Labs: Laboratory Tests Test 12/22/20 06:05 12/22/20 07:40 12/22/20 11:57 12/22/20 12:26 White Blood Count 9.9 x10^3/uL (4.0-11.0) Red Blood Count 4.87 x10^6/uL (4.30-5.70) Hemoglobin 13.0 g/dL (13.0-17.5) Hematocrit 41.4 % (39.0-53.0) Mean Corpuscular Volume 85 fL (79-100) Mean Corpuscular Hemoglobin 27 pg (25-35) Mean Corpuscular Hemoglobin Concent 31 g/dL (31-37) Red Cell Distribution Width 16.7 % (11.5-14.5) H Platelet Count 197 x10^3/uL (140-400) Neutrophils (%) (Auto) 59 % (31-73) Lymphocytes (%) (Auto) 27 % (24-48) Monocytes (%) (Auto) 11 % (0-9) H Eosinophils (%) (Auto) 2 % (0-3) Basophils (%) (Auto) 1 % (0-3) Neutrophils # (Auto) 5.9 x10^3uL (1.8-7.7) Lymphocytes # (Auto) 2.7 x10^3/uL (1.0-4.8) Monocytes # (Auto) 1.1 x10^3/uL (0.0-1.1) Eosinophils # (Auto) 0.2 x10^3/uL (0.0-0.7) Basophils # (Auto) 0.1 x10^3/uL (0.0-0.2) Sodium Level 141 mmol/L (136-145) Potassium Level 3.8 mmol/L (3.5-5.1) Chloride Level 105 mmol/L (98-107) Carbon Dioxide Level 28 mmol/L (21-32) Anion Gap 8 (6-14) Blood Urea Nitrogen 18 mg/dL (8-26) Creatinine 1.1 mg/dL (0.7-1.3) Estimated GFR (Cockcroft-Gault) 70.9 BUN/Creatinine Ratio 16 (6-20) Glucose Level 90 mg/dL (70-99) Calcium Level 9.4 mg/dL (8.5-10.1) Total Bilirubin 0.2 mg/dL (0.2-1.0) Aspartate Amino Transferase (AST) 8 U/L (15-37) L Alanine Aminotransferase (ALT) 16 U/L (16-63) Alkaline Phosphatase 59 U/L (46-116) Total Protein 7.9 g/dL (6.4-8.2) Albumin 2.8 g/dL (3.4-5.0) L Albumin/Globulin Ratio 0.5 (1.0-1.7) L Glucose (Fingerstick) 87 mg/dL (70-99) 64 mg/dL (70-99) L 133 mg/dL (70-99) H Test 12/22/20 17:01 12/22/20 17:28 12/22/20 19:15 Glucose (Fingerstick) 61 mg/dL (70-99) L 93 mg/dL (70-99) 166 mg/dL (70-99) H Current Medications: Meds: Laboratory Tests Test 12/22/20 06:05 12/22/20 07:40 12/22/20 11:57 12/22/20 12:26 White Blood Count 9.9 x10^3/uL Red Blood Count 4.87 x10^6/uL Hemoglobin 13.0 g/dL Hematocrit 41.4 % Mean Corpuscular Volume 85 fL Mean Corpuscular Hemoglobin 27 pg Mean Corpuscular Hemoglobin Concent 31 g/dL Red Cell Distribution Width 16.7 % Platelet Count 197 x10^3/uL Neutrophils (%) (Auto) 59 % Lymphocytes (%) (Auto) 27 % Monocytes (%) (Auto) 11 % Eosinophils (%) (Auto) 2 % Basophils (%) (Auto) 1 % Neutrophils # (Auto) 5.9 x10^3uL Lymphocytes # (Auto) 2.7 x10^3/uL Monocytes # (Auto) 1.1 x10^3/uL Eosinophils # (Auto) 0.2 x10^3/uL Basophils # (Auto) 0.1 x10^3/uL Sodium Level 141 mmol/L Potassium Level 3.8 mmol/L Chloride Level 105 mmol/L Carbon Dioxide Level 28 mmol/L Anion Gap 8 Blood Urea Nitrogen 18 mg/dL Creatinine 1.1 mg/dL Estimated GFR (Cockcroft-Gault) 70.9 BUN/Creatinine Ratio 16 Glucose Level 90 mg/dL Calcium Level 9.4 mg/dL Total Bilirubin 0.2 mg/dL Aspartate Amino Transf (AST/SGOT) 8 U/L Alanine Aminotransferase (ALT/SGPT) 16 U/L Alkaline Phosphatase 59 U/L Total Protein 7.9 g/dL Albumin 2.8 g/dL Albumin/Globulin Ratio 0.5 Glucose (Fingerstick) 87 mg/dL 64 mg/dL 133 mg/dL Test 12/22/20 17:01 12/22/20 17:28 12/22/20 19:15 Glucose (Fingerstick) 61 mg/dL 93 mg/dL 166 mg/dL Current Medications Medications (Trade) Dose Ordered Sig/Melissa Route PRN Reason Start Time Stop Time Status Last Admin Dose Admin Acetaminophen (Tylenol) 650 mg PRN Q6HRS PRN PO MILD PAIN / TEMP > 100.3'F 12/10/20 20:15 12/18/20 16:49 Multi-Ingredient Ointment (Analgesic [place]) 1 yisel PRN QID PRN TP MUSCLE PAIN 12/10/20 20:15 Al Hydroxide/Mg Hydroxide (Mylanta Plus Xs) 15 ml PRN AFTMEALHC PRN PO DYSPEPSIA 12/10/20 20:15 Magnesium Hydroxide (Milk Of Magnesia) 2,400 mg PRN QHS PRN PO 1ST CHOICE CONSTIPATION 12/10/20 20:15 Acetaminophen (Tylenol) 650 mg PRN Q6HRS PRN PO pain or fever 12/10/20 20:45 UNV Baclofen (Lioresal) 10 mg TID PO 12/10/20 21:00 12/22/20 19:56 Bisacodyl (Dulcolax Tab) 5 mg PRN DAILY PRN PO 3RD CHOICE CONSTIPATION 12/10/20 20:45 Buspirone HCl (Buspar) 15 mg TID PO 12/10/20 21:00 12/22/20 19:56 Divalproex Sodium (Depakote Er) 250 mg TID PO 12/10/20 21:00 12/12/20 18:37 DC 12/12/20 14:01 Docusate Sodium (Colace) 100 mg BID PO 12/10/20 21:00 12/22/20 19:57 Famotidine (Pepcid) 20 mg HS PO 12/10/20 21:00 12/22/20 19:56 Fentanyl (Duragesic 12mcg/ Hr) 1 patch Q3DAYS TD 12/12/20 09:00 12/21/20 09:44 Haloperidol (Haldol) 2 mg BID PO 12/10/20 21:00 12/19/20 18:33 DC 12/19/20 11:08 Sodium Biphosphate/ Sodium Phosphate (Fleet Adult) 133 ml PRN DAILY PRN RC 4TH CHOICE CONSTIPATION 12/10/20 20:45 12/16/20 06:24 Naloxegol (Movantik) 25 mg PRN DAILY PRN PO 2ND CHOICE CONSTIPATION 12/10/20 20:45 Paroxetine HCl (Paxil) 10 mg DAILY PO 12/11/20 09:00 12/18/20 11:40 DC 12/18/20 09:08 Polyethylene Glycol (miraLAX) 17 gm BID PO 12/10/20 21:00 12/22/20 19:57 Sennosides (Senna) 8.6 mg DAILY PO 12/11/20 09:00 12/22/20 08:42 Simvastatin (Zocor) 10 mg QHS PO 12/10/20 21:00 12/22/20 19:56 Tamsulosin HCl (Flomax) 0.4 mg DAILY PO 12/11/20 09:00 12/22/20 08:41 Insulin Human Lispro (HumaLOG) 10 units TIDWMEALS SQ 12/11/20 08:00 12/13/20 16:29 DC 12/13/20 12:31 Insulin Glargine (Lantus Syringe) 25 unit QHS SQ 12/10/20 21:00 12/22/20 21:48 Lactobacillus Rhamnosus (Culturelle) 1 cap BID PO 12/10/20 21:00 12/22/20 19:55 Multivitamins/ Calcium (Thera-M Plus) 1 tab DAILY PO 12/11/20 09:00 12/22/20 08:41 Paroxetine HCl (Paxil) 40 mg DAILY PO 12/11/20 09:00 12/18/20 11:40 DC 12/18/20 09:08 Divalproex Sodium (Depakote Sprinkles) 250 mg 0900,1400 PO 12/13/20 09:00 12/22/20 14:28 Divalproex Sodium (Depakote Sprinkles) 500 mg QHS PO 12/12/20 21:00 12/22/20 19:56 Insulin Human Lispro (HumaLOG) 5 units TIDWMEALS SQ 12/13/20 16:30 12/18/20 16:53 Ondansetron HCl (Zofran Odt) 4 mg PRN Q4HRS PRN PO NAUSEA/VOMITING 12/14/20 09:30 12/21/20 09:53 Methylnaltrexone [place] (Relistor) 12 mg ONCE ONCE SQ 12/14/20 16:00 12/14/20 16:01 DC 12/14/20 18:09 Olanzapine (ZyPREXA ZYDIS) 2.5 mg PRN Q2HRS PRN PO PSYCHOSIS 12/14/20 16:30 12/21/20 17:01 Lidocaine HCl (Glydo (Lidocaine) Jelly) 1 yisel 1X ONCE MM 12/15/20 16:15 12/15/20 16:16 DC 12/15/20 16:15 Nystatin (Nystop) 15 yisel STK-MED ONCE TP 12/16/20 02:29 12/16/20 02:30 DC Trimethoprim/ Sulfamethoxazole (Bactrim Ds) 1 tab BID PO 12/17/20 12:00 12/23/20 23:50 12/22/20 19:56 Doxycycline Hyclate (Vibra-Tab) 100 mg BID PO 12/17/20 12:00 12/23/20 23:50 12/22/20 19:56 Paroxetine HCl (Paxil) 30 mg DAILY PO 12/19/20 09:00 12/21/20 20:10 DC 12/21/20 09:42 Haloperidol (Haldol) 4 mg BID PO 12/19/20 21:00 12/22/20 20:19 DC 12/22/20 19:56 Atenolol (Tenormin) 50 mg DAILY PO 12/21/20 17:30 12/22/20 08:42 Potassium Chloride (Klor-Con) 20 meq DAILY PO 12/21/20 18:50 12/22/20 08:41 Paroxetine HCl (Paxil) 20 mg DAILY PO 12/22/20 09:00 12/22/20 08:42 Haloperidol (Haldol) 5 mg BID PO 12/23/20 09:00 Current Medications Medications (Trade) Dose Ordered Sig/Melissa Route PRN Reason Start Time Stop Time Status Last Admin Dose Admin Paroxetine HCl (Paxil) 20 mg DAILY PO 12/22/20 09:00 12/22/20 08:42 I have reviewed the current psychotropics carefully including drug interactions. Risk benefit ratio favors no change other than as noted in my dictated progress note. Diagnosis: Problems: (1) Schizoaffective disorder, bipolar type (2) Mood disorder (3) Impulse control disorder, unspecified (4) Anxiety disorder, unspecified (5) Bipolar disorder, current episode mixed, severe, with psychotic features EDSON VILLANUEVA MD Dec 22, 2020 21:55
--- NOTE | 2020-12-22 22:45 | NUR ---
Pt located in his room this evening. Compliant with HS medications. Preoccupied with amount of fluids he is given; pt angry intermittently and yelling out on/off. No hallucinations noted this evening.
[2020-12-23 06:32] VITALS: BP 111/72
[2020-12-23] MEDS: INSULIN LISPRO 300 UNITS/3 ML VIAL. SQ SCH ×3 (08:00→17:39)
[2020-12-23] MEDS: DOCUSATE SODIUM 100 MG CAPSULE PO SCH ×2 (08:53→20:35)
[2020-12-23] MEDS: DOXYCYCLINE HYCLATE 100 MG TABLET PO SCH ×2 (08:53→20:34)
[2020-12-23] MEDS: SMZ/TMP 800/160MG TABLET. PO SCH ×2 (08:53→20:35)
[2020-12-23] MEDS: TAMSULOSIN 0.4 MG CAP.ER.24H. PO SCH (08:53)
[2020-12-23] MEDS: SENNOSIDES 8.6 MG TABLET PO SCH (08:53)
[2020-12-23] MEDS: busPIRone 15 MG TABLET. PO SCH ×3 (08:54→20:35)
[2020-12-23] MEDS: PARoxetine 20 MG TABLET PO SCH (08:54)
[2020-12-23] MEDS: HALOPERIDOL 5 MG TABLET PO SCH ×2 (08:54→20:35)
[2020-12-23] MEDS: BACLOFEN 10 MG TABLET PO SCH ×3 (08:54→20:35)
[2020-12-23] MEDS: ATENOLOL 50 MG TABLET PO SCH ×2 (08:54→09:00)
[2020-12-23] MEDS: LACTOBACILLUS RHAMNOSUS GG 1 CAPSULE. PO SCH ×2 (08:54→20:34)
[2020-12-23] MEDS: POTASSIUM CHLORIDE 20 MEQ TABLET.ER. PO SCH (08:55)
[2020-12-23] MEDS: MULTIVITAMIN with MINERAL TABLET. PO SCH (08:55)
[2020-12-23] MEDS: DIVALPROEX 125 MG CAP.SPRINK PO SCH ×3 (08:55→20:35)
[2020-12-23] MEDS: POLYETHYLENE GLYCOL 3350 17 GM PACKET. PO SCH ×2 (08:55→20:35)
--- NOTE | 2020-12-23 09:04 | NUR ---
Wound care Wound care follow up for intertrigo in bilateral thigh creases. Wounds have resolved. Area cleansed and new nystatin powder applied. Pt had BM so brief changed as well. No other wounds noted. Wound care will sign off at this time. Please reconsult if new wounds develop.
--- NOTE | 2020-12-23 09:47 | PDOC ---
Exam Note: Edgar Note: This note is a late entry for 12/21/2020 covers elements not covered in my initial note. Subjective: The patient was seen individually in the evening of 12/21/2020 with Alistair CHIRINOS, discussed and reviewed the chart. The patient slept 2-3/4 hours previous night. Patient has had some tachycardia and was started on atenolol. Potassium is low and has been supplemented per Dr. Aguilar. He has been somewhat demanding, yelling at times, somewhat grandiose within the context of his bipolar disorder. We will reduce the Paxil from 30 mg a day down to 20 mg a day. He was initially on 50 mg a day. Given his manic symptoms, it is best to minimize the dosage. Review of Systems: He was lying in bed, unable to ambulate on his own. No CV, , eye, ENT system symptoms on review. Mental Status Exam: The patient is oriented to himself and situation. Speech moderate latency. Often response is monosyllabic. Abstraction fair. Computation impaired. Language function intact. Mood and affect somewhat withdrawn. Laboratory Data: Reviewed. Impression: Bipolar disorder mixed with psychotic features. Anxiety disorder unspecified. Impulse control disorder unspecified. Plan: We will reduce the Paxil from 30 mg a day down to 20 mg a day. He was initially on 50 mg a day. Given his manic symptoms, it is best to minimize the dosage. Continue rest psychotropics unchanged including BuSpar, Depakote. Haldol has been increased to 4 mg b.i.d. and he is less psychotic since we did this. Adjust further as clinically indicated. Assessment: Vital Signs/I&O: Vital Signs Date Time Temp Pulse Resp B/P (MAP) Pulse Ox O2 Delivery O2 Flow Rate FiO2 12/23/20 06:32 97.1 47 18 111/72 (85) 98 2.0 12/22/20 15:46 Room Air I & O 12/22/20 12/22/20 12/23/20 15:00 23:00 07:00 Intake Total 560 ml 480 ml Balance 560 ml 480 ml Labs: Laboratory Tests Test 12/22/20 11:57 12/22/20 12:26 12/22/20 17:01 12/22/20 17:28 Glucose (Fingerstick) 64 mg/dL (70-99) L 133 mg/dL (70-99) H 61 mg/dL (70-99) L 93 mg/dL (70-99) Test 12/22/20 19:15 12/23/20 07:29 Glucose (Fingerstick) 166 mg/dL (70-99) H 82 mg/dL (70-99) Current Medications: Meds: Laboratory Tests Test 12/22/20 11:57 12/22/20 12:26 12/22/20 17:01 12/22/20 17:28 Glucose (Fingerstick) 64 mg/dL 133 mg/dL 61 mg/dL 93 mg/dL Test 12/22/20 19:15 12/23/20 07:29 Glucose (Fingerstick) 166 mg/dL 82 mg/dL Current Medications Medications (Trade) Dose Ordered Sig/Melissa Route PRN Reason Start Time Stop Time Status Last Admin Dose Admin Acetaminophen (Tylenol) 650 mg PRN Q6HRS PRN PO MILD PAIN / TEMP > 100.3'F 12/10/20 20:15 12/18/20 16:49 Multi-Ingredient Ointment (Analgesic [place]) 1 yisel PRN QID PRN TP MUSCLE PAIN 12/10/20 20:15 Al Hydroxide/Mg Hydroxide (Mylanta Plus Xs) 15 ml PRN AFTMEALHC PRN PO DYSPEPSIA 12/10/20 20:15 Magnesium Hydroxide (Milk Of Magnesia) 2,400 mg PRN QHS PRN PO 1ST CHOICE CONSTIPATION 12/10/20 20:15 Acetaminophen (Tylenol) 650 mg PRN Q6HRS PRN PO pain or fever 12/10/20 20:45 UNV Baclofen (Lioresal) 10 mg TID PO 12/10/20 21:00 12/23/20 08:54 Bisacodyl (Dulcolax Tab) 5 mg PRN DAILY PRN PO 3RD CHOICE CONSTIPATION 12/10/20 20:45 Buspirone HCl (Buspar) 15 mg TID PO 12/10/20 21:00 12/23/20 08:54 Divalproex Sodium (Depakote Er) 250 mg TID PO 12/10/20 21:00 12/12/20 18:37 DC 12/12/20 14:01 Docusate Sodium (Colace) 100 mg BID PO 12/10/20 21:00 12/23/20 08:53 Famotidine (Pepcid) 20 mg HS PO 12/10/20 21:00 12/22/20 19:56 Fentanyl (Duragesic 12mcg/ Hr) 1 patch Q3DAYS TD 12/12/20 09:00 12/21/20 09:44 Haloperidol (Haldol) 2 mg BID PO 12/10/20 21:00 12/19/20 18:33 DC 12/19/20 11:08 Sodium Biphosphate/ Sodium Phosphate (Fleet Adult) 133 ml PRN DAILY PRN RC 4TH CHOICE CONSTIPATION 12/10/20 20:45 12/16/20 06:24 Naloxegol (Movantik) 25 mg PRN DAILY PRN PO 2ND CHOICE CONSTIPATION 12/10/20 20:45 Paroxetine HCl (Paxil) 10 mg DAILY PO 12/11/20 09:00 12/18/20 11:40 DC 12/18/20 09:08 Polyethylene Glycol (miraLAX) 17 gm BID PO 12/10/20 21:00 12/23/20 08:55 Sennosides (Senna) 8.6 mg DAILY PO 12/11/20 09:00 12/23/20 08:53 Simvastatin (Zocor) 10 mg QHS PO 12/10/20 21:00 12/22/20 19:56 Tamsulosin HCl (Flomax) 0.4 mg DAILY PO 12/11/20 09:00 12/23/20 08:53 Insulin Human Lispro (HumaLOG) 10 units TIDWMEALS SQ 12/11/20 08:00 12/13/20 16:29 DC 12/13/20 12:31 Insulin Glargine (Lantus Syringe) 25 unit QHS SQ 12/10/20 21:00 12/22/20 21:48 Lactobacillus Rhamnosus (Culturelle) 1 cap BID PO 12/10/20 21:00 12/23/20 08:54 Multivitamins/ Calcium (Thera-M Plus) 1 tab DAILY PO 12/11/20 09:00 12/23/20 08:55 Paroxetine HCl (Paxil) 40 mg DAILY PO 12/11/20 09:00 12/18/20 11:40 DC 12/18/20 09:08 Divalproex Sodium (Depakote Sprinkles) 250 mg 0900,1400 PO 12/13/20 09:00 12/23/20 08:55 Divalproex Sodium (Depakote Sprinkles) 500 mg QHS PO 12/12/20 21:00 12/22/20 19:56 Insulin Human Lispro (HumaLOG) 5 units TIDWMEALS SQ 12/13/20 16:30 12/18/20 16:53 Ondansetron HCl (Zofran Odt) 4 mg PRN Q4HRS PRN PO NAUSEA/VOMITING 12/14/20 09:30 12/21/20 09:53 Methylnaltrexone [place] (Relistor) 12 mg ONCE ONCE SQ 12/14/20 16:00 12/14/20 16:01 DC 12/14/20 18:09 Olanzapine (ZyPREXA ZYDIS) 2.5 mg PRN Q2HRS PRN PO PSYCHOSIS 12/14/20 16:30 12/21/20 17:01 Lidocaine HCl (Glydo (Lidocaine) Jelly) 1 yisel 1X ONCE MM 12/15/20 16:15 12/15/20 16:16 DC 12/15/20 16:15 Nystatin (Nystop) 15 yisel STK-MED ONCE TP 12/16/20 02:29 12/16/20 02:30 DC Trimethoprim/ Sulfamethoxazole (Bactrim Ds) 1 tab BID PO 12/17/20 12:00 12/23/20 23:50 12/23/20 08:53 Doxycycline Hyclate (Vibra-Tab) 100 mg BID PO 12/17/20 12:00 12/23/20 23:50 12/23/20 08:53 Paroxetine HCl (Paxil) 30 mg DAILY PO 12/19/20 09:00 12/21/20 20:10 DC 12/21/20 09:42 Haloperidol (Haldol) 4 mg BID PO 12/19/20 21:00 12/22/20 20:19 DC 12/22/20 19:56 Atenolol (Tenormin) 50 mg DAILY PO 12/21/20 17:30 12/22/20 08:42 Potassium Chloride (Klor-Con) 20 meq DAILY PO 12/21/20 18:50 12/23/20 08:55 Paroxetine HCl (Paxil) 20 mg DAILY PO 12/22/20 09:00 12/23/20 08:54 Haloperidol (Haldol) 5 mg BID PO 12/23/20 09:00 12/23/20 08:54 Current Medications Medications (Trade) Dose Ordered Sig/Melissa Route PRN Reason Start Time Stop Time Status Last Admin Dose Admin Haloperidol (Haldol) 5 mg BID PO 12/23/20 09:00 12/23/20 08:54 I have reviewed the current psychotropics carefully including drug interactions. Risk benefit ratio favors no change other than as noted in my dictated progress note. Diagnosis: Problems: (1) Schizoaffective disorder, bipolar type (2) Mood disorder (3) Impulse control disorder, unspecified (4) Anxiety disorder, unspecified (5) Bipolar disorder, current episode mixed, severe, with psychotic features EDSON VILLANUEVA MD Dec 23, 2020 09:47
--- NOTE | 2020-12-23 10:06 | PDOC ---
Exam Note: Edgar Note: This note is a late entry for 12/22/2020 covers elements not covered in my initial note. Subjective: The patient was seen individually in the evening of 12/22/2020 with Megan CHIRINOS, discussed and reviewed the chart. The patient slept 7 hours previous night. Patient has been hallucinating, seeing people in his room, calling out for Win. No vomiting noted. No sexually inappropriate behaviors noted. Review of Systems: Ambulation impaired. He was lying in bed. No CV, , pulmonary, eye, ENT system symptoms on review. Reliability poor. Mental Status Exam: The patient is oriented to himself and situation. Speech has some latency, coherent. Abstraction fair. Computation impaired. Language function intact. Attention span short. Mood and affect remains somewhat anxious, labile but improved. Laboratory Data: Reviewed. Impression: Bipolar disorder mixed with psychotic features. Anxiety disorder unspecified. Mild cognitive impairment. Plan: Continue current psychotropics. We will reduce the Paxil. He remains quite psychotic at times. Increase Haldol from 4 mg b.i.d. to 5 mg b.i.d. Rest unchanged for now. Assessment: Vital Signs/I&O: Vital Signs Date Time Temp Pulse Resp B/P (MAP) Pulse Ox O2 Delivery O2 Flow Rate FiO2 12/23/20 09:00 50 111/72 12/23/20 06:32 97.1 18 98 2.0 12/22/20 15:46 Room Air I & O 12/22/20 12/22/20 12/23/20 15:00 23:00 07:00 Intake Total 560 ml 480 ml Balance 560 ml 480 ml Labs: Laboratory Tests Test 12/22/20 11:57 12/22/20 12:26 12/22/20 17:01 12/22/20 17:28 Glucose (Fingerstick) 64 mg/dL (70-99) L 133 mg/dL (70-99) H 61 mg/dL (70-99) L 93 mg/dL (70-99) Test 12/22/20 19:15 12/23/20 07:29 Glucose (Fingerstick) 166 mg/dL (70-99) H 82 mg/dL (70-99) Current Medications: Meds: Laboratory Tests Test 12/22/20 11:57 12/22/20 12:26 12/22/20 17:01 12/22/20 17:28 Glucose (Fingerstick) 64 mg/dL 133 mg/dL 61 mg/dL 93 mg/dL Test 12/22/20 19:15 12/23/20 07:29 Glucose (Fingerstick) 166 mg/dL 82 mg/dL Current Medications Medications (Trade) Dose Ordered Sig/Melissa Route PRN Reason Start Time Stop Time Status Last Admin Dose Admin Acetaminophen (Tylenol) 650 mg PRN Q6HRS PRN PO MILD PAIN / TEMP > 100.3'F 12/10/20 20:15 12/18/20 16:49 Multi-Ingredient Ointment (Analgesic [place]) 1 yisel PRN QID PRN TP MUSCLE PAIN 12/10/20 20:15 Al Hydroxide/Mg Hydroxide (Mylanta Plus Xs) 15 ml PRN AFTMEALHC PRN PO DYSPEPSIA 12/10/20 20:15 Magnesium Hydroxide (Milk Of Magnesia) 2,400 mg PRN QHS PRN PO 1ST CHOICE CONSTIPATION 12/10/20 20:15 Acetaminophen (Tylenol) 650 mg PRN Q6HRS PRN PO pain or fever 12/10/20 20:45 UNV Baclofen (Lioresal) 10 mg TID PO 12/10/20 21:00 12/23/20 08:54 Bisacodyl (Dulcolax Tab) 5 mg PRN DAILY PRN PO 3RD CHOICE CONSTIPATION 12/10/20 20:45 Buspirone HCl (Buspar) 15 mg TID PO 12/10/20 21:00 12/23/20 08:54 Divalproex Sodium (Depakote Er) 250 mg TID PO 12/10/20 21:00 12/12/20 18:37 DC 12/12/20 14:01 Docusate Sodium (Colace) 100 mg BID PO 12/10/20 21:00 12/23/20 08:53 Famotidine (Pepcid) 20 mg HS PO 12/10/20 21:00 12/22/20 19:56 Fentanyl (Duragesic 12mcg/ Hr) 1 patch Q3DAYS TD 12/12/20 09:00 12/21/20 09:44 Haloperidol (Haldol) 2 mg BID PO 12/10/20 21:00 12/19/20 18:33 DC 12/19/20 11:08 Sodium Biphosphate/ Sodium Phosphate (Fleet Adult) 133 ml PRN DAILY PRN RC 4TH CHOICE CONSTIPATION 12/10/20 20:45 12/16/20 06:24 Naloxegol (Movantik) 25 mg PRN DAILY PRN PO 2ND CHOICE CONSTIPATION 12/10/20 20:45 Paroxetine HCl (Paxil) 10 mg DAILY PO 12/11/20 09:00 12/18/20 11:40 DC 12/18/20 09:08 Polyethylene Glycol (miraLAX) 17 gm BID PO 12/10/20 21:00 12/23/20 08:55 Sennosides (Senna) 8.6 mg DAILY PO 12/11/20 09:00 12/23/20 08:53 Simvastatin (Zocor) 10 mg QHS PO 12/10/20 21:00 12/22/20 19:56 Tamsulosin HCl (Flomax) 0.4 mg DAILY PO 12/11/20 09:00 12/23/20 08:53 Insulin Human Lispro (HumaLOG) 10 units TIDWMEALS SQ 12/11/20 08:00 12/13/20 16:29 DC 12/13/20 12:31 Insulin Glargine (Lantus Syringe) 25 unit QHS SQ 12/10/20 21:00 12/22/20 21:48 Lactobacillus Rhamnosus (Culturelle) 1 cap BID PO 12/10/20 21:00 12/23/20 08:54 Multivitamins/ Calcium (Thera-M Plus) 1 tab DAILY PO 12/11/20 09:00 12/23/20 08:55 Paroxetine HCl (Paxil) 40 mg DAILY PO 12/11/20 09:00 12/18/20 11:40 DC 12/18/20 09:08 Divalproex Sodium (Depakote Sprinkles) 250 mg 0900,1400 PO 12/13/20 09:00 12/23/20 08:55 Divalproex Sodium (Depakote Sprinkles) 500 mg QHS PO 12/12/20 21:00 12/22/20 19:56 Insulin Human Lispro (HumaLOG) 5 units TIDWMEALS SQ 12/13/20 16:30 12/18/20 16:53 Ondansetron HCl (Zofran Odt) 4 mg PRN Q4HRS PRN PO NAUSEA/VOMITING 12/14/20 09:30 12/21/20 09:53 Methylnaltrexone [place] (Relistor) 12 mg ONCE ONCE SQ 12/14/20 16:00 12/14/20 16:01 DC 12/14/20 18:09 Olanzapine (ZyPREXA ZYDIS) 2.5 mg PRN Q2HRS PRN PO PSYCHOSIS 12/14/20 16:30 12/21/20 17:01 Lidocaine HCl (Glydo (Lidocaine) Jelly) 1 yisel 1X ONCE MM 12/15/20 16:15 12/15/20 16:16 DC 12/15/20 16:15 Nystatin (Nystop) 15 yisel STK-MED ONCE TP 12/16/20 02:29 12/16/20 02:30 DC Trimethoprim/ Sulfamethoxazole (Bactrim Ds) 1 tab BID PO 12/17/20 12:00 12/23/20 23:50 12/23/20 08:53 Doxycycline Hyclate (Vibra-Tab) 100 mg BID PO 12/17/20 12:00 12/23/20 23:50 12/23/20 08:53 Paroxetine HCl (Paxil) 30 mg DAILY PO 12/19/20 09:00 12/21/20 20:10 DC 12/21/20 09:42 Haloperidol (Haldol) 4 mg BID PO 12/19/20 21:00 12/22/20 20:19 DC 12/22/20 19:56 Atenolol (Tenormin) 50 mg DAILY PO 12/21/20 17:30 12/22/20 08:42 Potassium Chloride (Klor-Con) 20 meq DAILY PO 12/21/20 18:50 12/23/20 08:55 Paroxetine HCl (Paxil) 20 mg DAILY PO 12/22/20 09:00 12/23/20 08:54 Haloperidol (Haldol) 5 mg BID PO 12/23/20 09:00 12/23/20 08:54 Current Medications Medications (Trade) Dose Ordered Sig/Melissa Route PRN Reason Start Time Stop Time Status Last Admin Dose Admin Haloperidol (Haldol) 5 mg BID PO 12/23/20 09:00 12/23/20 08:54 I have reviewed the current psychotropics carefully including drug interactions. Risk benefit ratio favors no change other than as noted in my dictated progress note. Diagnosis: Problems: (1) Schizoaffective disorder, bipolar type (2) Mood disorder (3) Impulse control disorder, unspecified (4) Anxiety disorder, unspecified (5) Bipolar disorder, current episode mixed, severe, with psychotic features EDSON VILLANUEVA MD Dec 23, 2020 10:06
[2020-12-23 16:35] VITALS: BP 111/68
--- NOTE | 2020-12-23 18:30 | NUR ---
Patient has been attention seeking and helpless throughout this day. He slept off and on throughout the day. Will continue to monitor and report to oncoming shift.
[2020-12-23] MEDS: SIMVASTATIN 10 MG TABLET PO SCH (20:35)
[2020-12-23] MEDS: FAMOTIDINE 20 MG TABLET PO SCH (20:35)
[2020-12-23] MEDS: INSULIN GLARGINE SYRINGE. SQ SCH (21:11)
--- NOTE | 2020-12-23 22:04 | PDOC ---
Exam Note: Edgar Note: Please also refer to the separate dictated note~for this date of service dictated separately.~Patient seen individually. Discussed the patient with Nursing staff reviewed the chart.~Reviewed interim history and current functioning. Reviewed vital signs,~Labs/ Radiology~and current medications noted below. Continue current treatment with the changes noted in the dictated addendum note Assessment: Vital Signs/I&O: Vital Signs Date Time Temp Pulse Resp B/P (MAP) Pulse Ox O2 Delivery O2 Flow Rate FiO2 12/23/20 16:35 97.8 58 18 111/68 (82) 96 12/23/20 06:32 2.0 12/22/20 15:46 Room Air I & O 0 12/22/20 12/22/20 12/23/20 14:59 22:59 06:59 Intake Total 560 ml 480 ml Balance 560 ml 480 ml Labs: Laboratory Tests Test 12/23/20 07:29 12/23/20 12:02 12/23/20 17:10 12/23/20 19:09 Glucose (Fingerstick) 82 mg/dL (70-99) 120 mg/dL (70-99) H 169 mg/dL (70-99) H 130 mg/dL (70-99) H Current Medications: Meds: Laboratory Tests Test 12/23/20 07:29 12/23/20 12:02 12/23/20 17:10 12/23/20 19:09 Glucose (Fingerstick) 82 mg/dL 120 mg/dL 169 mg/dL 130 mg/dL Current Medications Medications (Trade) Dose Ordered Sig/Melissa Route PRN Reason Start Time Stop Time Status Last Admin Dose Admin Acetaminophen (Tylenol) 650 mg PRN Q6HRS PRN PO MILD PAIN / TEMP > 100.3'F 12/10/20 20:15 12/18/20 16:49 Multi-Ingredient Ointment (Analgesic [place]) 1 yisel PRN QID PRN TP MUSCLE PAIN 12/10/20 20:15 Al Hydroxide/Mg Hydroxide (Mylanta Plus Xs) 15 ml PRN AFTMEALHC PRN PO DYSPEPSIA 12/10/20 20:15 Magnesium Hydroxide (Milk Of Magnesia) 2,400 mg PRN QHS PRN PO 1ST CHOICE CONSTIPATION 12/10/20 20:15 Acetaminophen (Tylenol) 650 mg PRN Q6HRS PRN PO pain or fever 12/10/20 20:45 UNV Baclofen (Lioresal) 10 mg TID PO 12/10/20 21:00 12/23/20 20:35 Bisacodyl (Dulcolax Tab) 5 mg PRN DAILY PRN PO 3RD CHOICE CONSTIPATION 12/10/20 20:45 Buspirone HCl (Buspar) 15 mg TID PO 12/10/20 21:00 12/23/20 20:35 Divalproex Sodium (Depakote Er) 250 mg TID PO 12/10/20 21:00 12/12/20 18:37 DC 12/12/20 14:01 Docusate Sodium (Colace) 100 mg BID PO 12/10/20 21:00 12/23/20 20:35 Famotidine (Pepcid) 20 mg HS PO 12/10/20 21:00 12/23/20 20:35 Fentanyl (Duragesic 12mcg/ Hr) 1 patch Q3DAYS TD 12/12/20 09:00 12/21/20 09:44 Haloperidol (Haldol) 2 mg BID PO 12/10/20 21:00 12/19/20 18:33 DC 12/19/20 11:08 Sodium Biphosphate/ Sodium Phosphate (Fleet Adult) 133 ml PRN DAILY PRN RC 4TH CHOICE CONSTIPATION 12/10/20 20:45 12/16/20 06:24 Naloxegol (Movantik) 25 mg PRN DAILY PRN PO 2ND CHOICE CONSTIPATION 12/10/20 20:45 Paroxetine HCl (Paxil) 10 mg DAILY PO 12/11/20 09:00 12/18/20 11:40 DC 12/18/20 09:08 Polyethylene Glycol (miraLAX) 17 gm BID PO 12/10/20 21:00 12/23/20 20:35 Sennosides (Senna) 8.6 mg DAILY PO 12/11/20 09:00 12/23/20 08:53 Simvastatin (Zocor) 10 mg QHS PO 12/10/20 21:00 12/23/20 20:35 Tamsulosin HCl (Flomax) 0.4 mg DAILY PO 12/11/20 09:00 12/23/20 08:53 Insulin Human Lispro (HumaLOG) 10 units TIDWMEALS SQ 12/11/20 08:00 12/13/20 16:29 DC 12/13/20 12:31 Insulin Glargine (Lantus Syringe) 25 unit QHS SQ 12/10/20 21:00 12/23/20 21:11 Lactobacillus Rhamnosus (Culturelle) 1 cap BID PO 12/10/20 21:00 12/23/20 20:34 Multivitamins/ Calcium (Thera-M Plus) 1 tab DAILY PO 12/11/20 09:00 12/23/20 08:55 Paroxetine HCl (Paxil) 40 mg DAILY PO 12/11/20 09:00 12/18/20 11:40 DC 12/18/20 09:08 Divalproex Sodium (Depakote Sprinkles) 250 mg 0900,1400 PO 12/13/20 09:00 12/23/20 13:53 Divalproex Sodium (Depakote Sprinkles) 500 mg QHS PO 12/12/20 21:00 12/23/20 20:35 Insulin Human Lispro (HumaLOG) 5 units TIDWMEALS SQ 12/13/20 16:30 12/23/20 17:39 Ondansetron HCl (Zofran Odt) 4 mg PRN Q4HRS PRN PO NAUSEA/VOMITING 12/14/20 09:30 12/21/20 09:53 Methylnaltrexone [place] (Relistor) 12 mg ONCE ONCE SQ 12/14/20 16:00 12/14/20 16:01 DC 12/14/20 18:09 Olanzapine (ZyPREXA ZYDIS) 2.5 mg PRN Q2HRS PRN PO PSYCHOSIS 12/14/20 16:30 12/21/20 17:01 Lidocaine HCl (Glydo (Lidocaine) Jelly) 1 yisel 1X ONCE MM 12/15/20 16:15 12/15/20 16:16 DC 12/15/20 16:15 Nystatin (Nystop) 15 yisel STK-MED ONCE TP 12/16/20 02:29 12/16/20 02:30 DC Trimethoprim/ Sulfamethoxazole (Bactrim Ds) 1 tab BID PO 12/17/20 12:00 12/23/20 23:50 12/23/20 20:35 Doxycycline Hyclate (Vibra-Tab) 100 mg BID PO 12/17/20 12:00 12/23/20 23:50 12/23/20 20:34 Paroxetine HCl (Paxil) 30 mg DAILY PO 12/19/20 09:00 12/21/20 20:10 DC 12/21/20 09:42 Haloperidol (Haldol) 4 mg BID PO 12/19/20 21:00 12/22/20 20:19 DC 12/22/20 19:56 Atenolol (Tenormin) 50 mg DAILY PO 12/21/20 17:30 12/22/20 08:42 Potassium Chloride (Klor-Con) 20 meq DAILY PO 12/21/20 18:50 12/23/20 08:55 Paroxetine HCl (Paxil) 20 mg DAILY PO 12/22/20 09:00 12/23/20 08:54 Haloperidol (Haldol) 5 mg BID PO 12/23/20 09:00 12/23/20 20:35 Current Medications Medications (Trade) Dose Ordered Sig/Melissa Route PRN Reason Start Time Stop Time Status Last Admin Dose Admin Haloperidol (Haldol) 5 mg BID PO 12/23/20 09:00 12/23/20 20:35 I have reviewed the current psychotropics carefully including drug interactions. Risk benefit ratio favors no change other than as noted in my dictated progress note. Diagnosis: Problems: (1) Schizoaffective disorder, bipolar type (2) Mood disorder (3) Impulse control disorder, unspecified (4) Anxiety disorder, unspecified (5) Bipolar disorder, current episode mixed, severe, with psychotic features EDSON VILLANUEVA MD Dec 23, 2020 22:04
--- NOTE | 2020-12-23 23:54 | NUR ---
Pt located in his room this evening. Pt yelling out for drinks intermittently. Compliant with HS medications.
[2020-12-24 06:12] VITALS: BP 117/78
[2020-12-24] MEDS: INSULIN LISPRO 300 UNITS/3 ML VIAL. SQ SCH ×3 (07:44→17:17)
[2020-12-24] MEDS: POLYETHYLENE GLYCOL 3350 17 GM PACKET. PO SCH ×2 (09:00→19:28)
[2020-12-24] MEDS: BACLOFEN 10 MG TABLET PO SCH ×3 (09:00→19:28)
[2020-12-24] MEDS: LACTOBACILLUS RHAMNOSUS GG 1 CAPSULE. PO SCH ×2 (09:00→19:28)
[2020-12-24] MEDS: DOCUSATE SODIUM 100 MG CAPSULE PO SCH ×2 (09:00→19:28)
[2020-12-24] MEDS: MULTIVITAMIN with MINERAL TABLET. PO SCH (09:00)
[2020-12-24] MEDS: DIVALPROEX 125 MG CAP.SPRINK PO SCH ×3 (09:00→19:28)
[2020-12-24] MEDS: busPIRone 15 MG TABLET. PO SCH ×3 (09:00→19:28)
--- NOTE | 2020-12-24 09:14 | NUR ---
Pt provided full bottle of Ensure Clear with his breakfast. He has been intermittently making retching sounds and a small amount of emesis is observed on his clothing. He is now frequently screaming from his room; alternating from yelling for more liquids to consume and yelling that he needs to vomit. PRN Zofran 4mg PO administered. Waiting for reassessment for effectiveness before scheduled PO medications are administered. Addendum: 12/24/20 at 0918 by DANIEL HUANG RN PRN Zyprexa 2.5 mg PO also administered
[2020-12-24] MEDS: ONDANSETRON ODT 4 MG TAB.RAPDIS PO PRN (09:17)
[2020-12-24] MEDS: fentaNYL 12MCG/HR 1 PATCH PATCH TD SCH (09:30)
--- NOTE | 2020-12-24 11:38 | NUR ---
SW spoke with ST as nursing was completing a discharge. ST was on the way in and wanted to make sure pt was up, alert and oriented for her to complete the evaluation. SW explained pt behaviors and current diet. ST is concerned that pt may need more of a GI consult; however, is on her way and requested that pt tray is held so that she can see how he does with his lunch tray.
[2020-12-24] MEDS: POTASSIUM CHLORIDE 20 MEQ TABLET.ER. PO SCH (12:36)
[2020-12-24] MEDS: HALOPERIDOL 5 MG TABLET PO SCH ×2 (12:36→19:29)
[2020-12-24] MEDS: PARoxetine 20 MG TABLET PO SCH (12:36)
[2020-12-24] MEDS: ATENOLOL 50 MG TABLET PO SCH (12:37)
[2020-12-24] MEDS: SENNOSIDES 8.6 MG TABLET PO SCH (12:37)
[2020-12-24] MEDS: TAMSULOSIN 0.4 MG CAP.ER.24H. PO SCH (12:37)
[2020-12-24 15:33] VITALS: BP 97/70
[2020-12-24] MEDS: METOCLOPRAMIDE 5 MG TABLET PO SCH ×2 (17:17→19:31)
[2020-12-24] MEDS: SIMVASTATIN 10 MG TABLET PO SCH (19:28)
[2020-12-24] MEDS: INSULIN GLARGINE SYRINGE. SQ SCH (21:38)
--- NOTE | 2020-12-24 21:59 | PDOC ---
Exam Note: Edgar Note: Please also refer to the separate dictated note~for this date of service dictated separately.~Patient seen individually. Discussed the patient with Nursing staff reviewed the chart.~Reviewed interim history and current functioning. Reviewed vital signs,~Labs/ Radiology~and current medications noted below. Continue current treatment with the changes noted in the dictated addendum note Assessment: Vital Signs/I&O: Vital Signs Date Time Temp Pulse Resp B/P (MAP) Pulse Ox O2 Delivery O2 Flow Rate FiO2 12/24/20 15:33 97.7 53 18 97/70 (79) 95 Nasal Cannula 2.0 I & O 12/23/20 12/23/20 12/24/20 14:59 22:59 06:59 Intake Total 600 ml 600 ml Balance 600 ml 600 ml Labs: Laboratory Tests Test 12/24/20 07:27 12/24/20 12:09 12/24/20 16:27 12/24/20 19:16 Glucose (Fingerstick) 89 mg/dL (70-99) 83 mg/dL (70-99) 165 mg/dL (70-99) H 234 mg/dL (70-99) H Current Medications: Meds: Laboratory Tests Test 12/24/20 07:27 12/24/20 12:09 12/24/20 16:27 12/24/20 19:16 Glucose (Fingerstick) 89 mg/dL 83 mg/dL 165 mg/dL 234 mg/dL Current Medications Medications (Trade) Dose Ordered Sig/Melissa Route PRN Reason Start Time Stop Time Status Last Admin Dose Admin Acetaminophen (Tylenol) 650 mg PRN Q6HRS PRN PO MILD PAIN / TEMP > 100.3'F 12/10/20 20:15 12/18/20 16:49 Multi-Ingredient Ointment (Analgesic [place]) 1 yisel PRN QID PRN TP MUSCLE PAIN 12/10/20 20:15 Al Hydroxide/Mg Hydroxide (Mylanta Plus Xs) 15 ml PRN AFTMEALHC PRN PO DYSPEPSIA 12/10/20 20:15 Magnesium Hydroxide (Milk Of Magnesia) 2,400 mg PRN QHS PRN PO 1ST CHOICE CONSTIPATION 12/10/20 20:15 Acetaminophen (Tylenol) 650 mg PRN Q6HRS PRN PO pain or fever 12/10/20 20:45 UNV Baclofen (Lioresal) 10 mg TID PO 12/10/20 21:00 12/24/20 19:28 Bisacodyl (Dulcolax Tab) 5 mg PRN DAILY PRN PO 3RD CHOICE CONSTIPATION 12/10/20 20:45 Buspirone HCl (Buspar) 15 mg TID PO 12/10/20 21:00 12/24/20 19:28 Divalproex Sodium (Depakote Er) 250 mg TID PO 12/10/20 21:00 12/12/20 18:37 DC 12/12/20 14:01 Docusate Sodium (Colace) 100 mg BID PO 12/10/20 21:00 12/24/20 19:28 Famotidine (Pepcid) 20 mg HS PO 12/10/20 21:00 12/24/20 16:43 DC 12/23/20 20:35 Fentanyl (Duragesic 12mcg/ Hr) 1 patch Q3DAYS TD 12/12/20 09:00 12/24/20 09:30 Haloperidol (Haldol) 2 mg BID PO 12/10/20 21:00 12/19/20 18:33 DC 12/19/20 11:08 Sodium Biphosphate/ Sodium Phosphate (Fleet Adult) 133 ml PRN DAILY PRN RC 4TH CHOICE CONSTIPATION 12/10/20 20:45 12/16/20 06:24 Naloxegol (Movantik) 25 mg PRN DAILY PRN PO 2ND CHOICE CONSTIPATION 12/10/20 20:45 Paroxetine HCl (Paxil) 10 mg DAILY PO 12/11/20 09:00 12/18/20 11:40 DC 12/18/20 09:08 Polyethylene Glycol (miraLAX) 17 gm BID PO 12/10/20 21:00 12/24/20 19:28 Sennosides (Senna) 8.6 mg DAILY PO 12/11/20 09:00 12/24/20 12:37 Simvastatin (Zocor) 10 mg QHS PO 12/10/20 21:00 12/24/20 19:28 Tamsulosin HCl (Flomax) 0.4 mg DAILY PO 12/11/20 09:00 12/24/20 12:37 Insulin Human Lispro (HumaLOG) 10 units TIDWMEALS SQ 12/11/20 08:00 12/13/20 16:29 DC 12/13/20 12:31 Insulin Glargine (Lantus Syringe) 25 unit QHS SQ 12/10/20 21:00 12/24/20 21:38 Lactobacillus Rhamnosus (Culturelle) 1 cap BID PO 12/10/20 21:00 12/24/20 19:28 Multivitamins/ Calcium (Thera-M Plus) 1 tab DAILY PO 12/11/20 09:00 12/23/20 08:55 Paroxetine HCl (Paxil) 40 mg DAILY PO 12/11/20 09:00 12/18/20 11:40 DC 12/18/20 09:08 Divalproex Sodium (Depakote Sprinkles) 250 mg 0900,1400 PO 12/13/20 09:00 12/24/20 12:37 Divalproex Sodium (Depakote Sprinkles) 500 mg QHS PO 12/12/20 21:00 12/24/20 19:28 Insulin Human Lispro (HumaLOG) 5 units TIDWMEALS SQ 12/13/20 16:30 12/24/20 17:17 Ondansetron HCl (Zofran Odt) 4 mg PRN Q4HRS PRN PO NAUSEA/VOMITING 12/14/20 09:30 12/24/20 09:17 Methylnaltrexone [place] (Relistor) 12 mg ONCE ONCE SQ 12/14/20 16:00 12/14/20 16:01 DC 12/14/20 18:09 Olanzapine (ZyPREXA ZYDIS) 2.5 mg PRN Q2HRS PRN PO PSYCHOSIS 12/14/20 16:30 12/24/20 09:18 Lidocaine HCl (Glydo (Lidocaine) Jelly) 1 yisel 1X ONCE MM 12/15/20 16:15 12/15/20 16:16 DC 12/15/20 16:15 Nystatin (Nystop) 15 yisel STK-MED ONCE TP 12/16/20 02:29 12/16/20 02:30 DC Trimethoprim/ Sulfamethoxazole (Bactrim Ds) 1 tab BID PO 12/17/20 12:00 12/23/20 23:50 DC 12/23/20 20:35 Doxycycline Hyclate (Vibra-Tab) 100 mg BID PO 12/17/20 12:00 12/23/20 23:50 DC 12/23/20 20:34 Paroxetine HCl (Paxil) 30 mg DAILY PO 12/19/20 09:00 12/21/20 20:10 DC 12/21/20 09:42 Haloperidol (Haldol) 4 mg BID PO 12/19/20 21:00 12/22/20 20:19 DC 12/22/20 19:56 Atenolol (Tenormin) 50 mg DAILY PO 12/21/20 17:30 12/24/20 12:37 Potassium Chloride (Klor-Con) 20 meq DAILY PO 12/21/20 18:50 12/24/20 12:36 Paroxetine HCl (Paxil) 20 mg DAILY PO 12/22/20 09:00 12/24/20 12:36 Haloperidol (Haldol) 5 mg BID PO 12/23/20 09:00 12/24/20 19:29 Metoclopramide HCl (Reglan) 5 mg TIDACHC PO 12/24/20 17:00 12/24/20 19:31 Lansoprazole (Prevacid) 30 mg DAILYAC PO 12/25/20 07:30 Current Medications Medications (Trade) Dose Ordered Sig/Melissa Route PRN Reason Start Time Stop Time Status Last Admin Dose Admin Metoclopramide HCl (Reglan) 5 mg TIDACHC PO 12/24/20 17:00 12/24/20 19:31 I have reviewed the current psychotropics carefully including drug interactions. Risk benefit ratio favors no change other than as noted in my dictated progress note. Diagnosis: Problems: (1) Schizoaffective disorder, bipolar type (2) Mood disorder (3) Impulse control disorder, unspecified (4) Anxiety disorder, unspecified (5) Bipolar disorder, current episode mixed, severe, with psychotic features EDSON VILLANUEVA MD Dec 24, 2020 21:59
--- NOTE | 2020-12-24 23:54 | NUR ---
Nursing Note The patient was located in his room for his assessment and medication pass. The patient was alert to name, date and location. The patient took his medication whole and was pleasant during interactions. The patient is currently sleeping in his room.
[2020-12-25 06:25] VITALS: BP 101/65
[2020-12-25] MEDS: INSULIN LISPRO 300 UNITS/3 ML VIAL. SQ SCH ×3 (07:44→17:00)
--- NOTE | 2020-12-25 08:38 | PDOC ---
Exam Note: Edgar Note: This note is a late entry for 12/23/2020 covers elements not covered in my initial note. Subjective: The patient was seen individually in the evening of 12/23/2020 with Jose Eduardo CHIRINOS, discussed and reviewed the chart. The patient slept 4-3/4 hours previous night. Patient has been obsessively asking for fluids, calling out help help. Speech therapy eval is awaited. Wound care has discontinued services as the wound has healed. Review of Systems: Ambulation impaired. He was lying in bed. No CV, , pulmonary, eye, ENT system symptoms on review. Mental Status Exam: The patient is oriented to himself and situation. Speech has some latency, coherent. Abstraction fair. Computation impaired. Language function intact. Attention span short. Mood and affect withdrawn. No sexually inappropriate behaviors noted. Laboratory Data: Reviewed. Impression: Bipolar disorder mixed with psychotic features. Anxiety disorder unspecified. Mild cognitive impairment. Plan: Continue current psychotropics mentioned in my initial note. Assessment: Vital Signs/I&O: Vital Signs Date Time Temp Pulse Resp B/P (MAP) Pulse Ox O2 Delivery O2 Flow Rate FiO2 12/25/20 06:25 98.2 47 18 101/65 (77) 97 12/24/20 15:33 Nasal Cannula 2.0 I & O 12/24/20 12/24/20 12/25/20 15:00 23:00 07:00 Intake Total 580 ml 480 ml Balance 580 ml 480 ml Labs: Laboratory Tests Test 12/24/20 12:09 12/24/20 16:27 12/24/20 19:16 12/25/20 07:35 Glucose (Fingerstick) 83 mg/dL (70-99) 165 mg/dL (70-99) H 234 mg/dL (70-99) H 99 mg/dL (70-99) Current Medications: Meds: Laboratory Tests Test 12/24/20 12:09 12/24/20 16:27 12/24/20 19:16 12/25/20 07:35 Glucose (Fingerstick) 83 mg/dL 165 mg/dL 234 mg/dL 99 mg/dL Current Medications Medications (Trade) Dose Ordered Sig/Melissa Route PRN Reason Start Time Stop Time Status Last Admin Dose Admin Acetaminophen (Tylenol) 650 mg PRN Q6HRS PRN PO MILD PAIN / TEMP > 100.3'F 12/10/20 20:15 12/18/20 16:49 Multi-Ingredient Ointment (Analgesic [place]) 1 yisel PRN QID PRN TP MUSCLE PAIN 12/10/20 20:15 Al Hydroxide/Mg Hydroxide (Mylanta Plus Xs) 15 ml PRN AFTMEALHC PRN PO DYSPEPSIA 12/10/20 20:15 Magnesium Hydroxide (Milk Of Magnesia) 2,400 mg PRN QHS PRN PO 1ST CHOICE CONSTIPATION 12/10/20 20:15 Acetaminophen (Tylenol) 650 mg PRN Q6HRS PRN PO pain or fever 12/10/20 20:45 UNV Baclofen (Lioresal) 10 mg TID PO 12/10/20 21:00 12/24/20 19:28 Bisacodyl (Dulcolax Tab) 5 mg PRN DAILY PRN PO 3RD CHOICE CONSTIPATION 12/10/20 20:45 Buspirone HCl (Buspar) 15 mg TID PO 12/10/20 21:00 12/24/20 19:28 Divalproex Sodium (Depakote Er) 250 mg TID PO 12/10/20 21:00 12/12/20 18:37 DC 12/12/20 14:01 Docusate Sodium (Colace) 100 mg BID PO 12/10/20 21:00 12/24/20 19:28 Famotidine (Pepcid) 20 mg HS PO 12/10/20 21:00 12/24/20 16:43 DC 12/23/20 20:35 Fentanyl (Duragesic 12mcg/ Hr) 1 patch Q3DAYS TD 12/12/20 09:00 12/24/20 09:30 Haloperidol (Haldol) 2 mg BID PO 12/10/20 21:00 12/19/20 18:33 DC 12/19/20 11:08 Sodium Biphosphate/ Sodium Phosphate (Fleet Adult) 133 ml PRN DAILY PRN RC 4TH CHOICE CONSTIPATION 12/10/20 20:45 12/16/20 06:24 Naloxegol (Movantik) 25 mg PRN DAILY PRN PO 2ND CHOICE CONSTIPATION 12/10/20 20:45 Paroxetine HCl (Paxil) 10 mg DAILY PO 12/11/20 09:00 12/18/20 11:40 DC 12/18/20 09:08 Polyethylene Glycol (miraLAX) 17 gm BID PO 12/10/20 21:00 12/24/20 19:28 Sennosides (Senna) 8.6 mg DAILY PO 12/11/20 09:00 12/24/20 12:37 Simvastatin (Zocor) 10 mg QHS PO 12/10/20 21:00 12/24/20 19:28 Tamsulosin HCl (Flomax) 0.4 mg DAILY PO 12/11/20 09:00 12/24/20 12:37 Insulin Human Lispro (HumaLOG) 10 units TIDWMEALS SQ 12/11/20 08:00 12/13/20 16:29 DC 12/13/20 12:31 Insulin Glargine (Lantus Syringe) 25 unit QHS SQ 12/10/20 21:00 12/24/20 21:38 Lactobacillus Rhamnosus (Culturelle) 1 cap BID PO 12/10/20 21:00 12/24/20 19:28 Multivitamins/ Calcium (Thera-M Plus) 1 tab DAILY PO 12/11/20 09:00 12/23/20 08:55 Paroxetine HCl (Paxil) 40 mg DAILY PO 12/11/20 09:00 12/18/20 11:40 DC 12/18/20 09:08 Divalproex Sodium (Depakote Sprinkles) 250 mg 0900,1400 PO 12/13/20 09:00 12/24/20 12:37 Divalproex Sodium (Depakote Sprinkles) 500 mg QHS PO 12/12/20 21:00 12/24/20 19:28 Insulin Human Lispro (HumaLOG) 5 units TIDWMEALS SQ 12/13/20 16:30 12/24/20 17:17 Ondansetron HCl (Zofran Odt) 4 mg PRN Q4HRS PRN PO NAUSEA/VOMITING 12/14/20 09:30 12/24/20 09:17 Methylnaltrexone [place] (Relistor) 12 mg ONCE ONCE SQ 12/14/20 16:00 12/14/20 16:01 DC 12/14/20 18:09 Olanzapine (ZyPREXA ZYDIS) 2.5 mg PRN Q2HRS PRN PO PSYCHOSIS 12/14/20 16:30 12/24/20 09:18 Lidocaine HCl (Glydo (Lidocaine) Jelly) 1 yisel 1X ONCE MM 12/15/20 16:15 12/15/20 16:16 DC 12/15/20 16:15 Nystatin (Nystop) 15 yisel STK-MED ONCE TP 12/16/20 02:29 12/16/20 02:30 DC Trimethoprim/ Sulfamethoxazole (Bactrim Ds) 1 tab BID PO 12/17/20 12:00 12/23/20 23:50 DC 12/23/20 20:35 Doxycycline Hyclate (Vibra-Tab) 100 mg BID PO 12/17/20 12:00 12/23/20 23:50 DC 12/23/20 20:34 Paroxetine HCl (Paxil) 30 mg DAILY PO 12/19/20 09:00 12/21/20 20:10 DC 12/21/20 09:42 Haloperidol (Haldol) 4 mg BID PO 12/19/20 21:00 12/22/20 20:19 DC 12/22/20 19:56 Atenolol (Tenormin) 50 mg DAILY PO 12/21/20 17:30 12/24/20 12:37 Potassium Chloride (Klor-Con) 20 meq DAILY PO 12/21/20 18:50 12/24/20 12:36 Paroxetine HCl (Paxil) 20 mg DAILY PO 12/22/20 09:00 12/24/20 12:36 Haloperidol (Haldol) 5 mg BID PO 12/23/20 09:00 12/24/20 19:29 Metoclopramide HCl (Reglan) 5 mg TIDACHC PO 12/24/20 17:00 12/24/20 19:31 Lansoprazole (Prevacid) 30 mg DAILYAC PO 12/25/20 07:30 Current Medications Medications (Trade) Dose Ordered Sig/Melissa Route PRN Reason Start Time Stop Time Status Last Admin Dose Admin Metoclopramide HCl (Reglan) 5 mg TIDACHC PO 12/24/20 17:00 12/24/20 19:31 I have reviewed the current psychotropics carefully including drug interactions. Risk benefit ratio favors no change other than as noted in my dictated progress note. Diagnosis: Problems: (1) Mood disorder (2) Impulse control disorder, unspecified (3) Anxiety disorder, unspecified (4) Bipolar disorder, current episode mixed, severe, with psychotic features EDSON VILLANUEVA MD Dec 25, 2020 08:38
--- NOTE | 2020-12-25 08:51 | PDOC ---
Exam Note: Edgar Note: This note is a late entry for 12/24/2020 covers elements not covered in my initial note. Subjective: The patient was seen individually in the evening of 12/24/2020 with Mahin CHIRINOS, discussed and reviewed the chart. The patient slept 5-1/2 hours previous night. Patient remains withdrawn. He spends much time in his room but anxious, demanding at times, wanting excessive amount of fluids to drink. Review of Systems: Ambulation impaired in bed. No CV, , pulmonary, eye, ENT system symptoms on review. Mental Status Exam: The patient is oriented to himself and situation. Speech has some latency, coherent. Abstraction fair. Computation impaired. Language function intact. Mood and affect remains withdrawn. Laboratory Data: Reviewed. Impression: Bipolar disorder mixed with psychotic features. Anxiety disorder unspecified. Mild cognitive impairment. Plan: Continue current psychotropics. Assessment: Vital Signs/I&O: Vital Signs Date Time Temp Pulse Resp B/P (MAP) Pulse Ox O2 Delivery O2 Flow Rate FiO2 12/25/20 06:25 98.2 47 18 101/65 (77) 97 12/24/20 15:33 Nasal Cannula 2.0 I & O 12/24/20 12/24/20 12/25/20 15:00 23:00 07:00 Intake Total 580 ml 480 ml Balance 580 ml 480 ml Labs: Laboratory Tests Test 12/24/20 12:09 12/24/20 16:27 12/24/20 19:16 12/25/20 07:35 Glucose (Fingerstick) 83 mg/dL (70-99) 165 mg/dL (70-99) H 234 mg/dL (70-99) H 99 mg/dL (70-99) Current Medications: Meds: Laboratory Tests Test 12/24/20 12:09 12/24/20 16:27 12/24/20 19:16 12/25/20 07:35 Glucose (Fingerstick) 83 mg/dL 165 mg/dL 234 mg/dL 99 mg/dL Current Medications Medications (Trade) Dose Ordered Sig/Melissa Route PRN Reason Start Time Stop Time Status Last Admin Dose Admin Acetaminophen (Tylenol) 650 mg PRN Q6HRS PRN PO MILD PAIN / TEMP > 100.3'F 12/10/20 20:15 12/18/20 16:49 Multi-Ingredient Ointment (Analgesic [place]) 1 yisel PRN QID PRN TP MUSCLE PAIN 12/10/20 20:15 Al Hydroxide/Mg Hydroxide (Mylanta Plus Xs) 15 ml PRN AFTMEALHC PRN PO DYSPEPSIA 12/10/20 20:15 Magnesium Hydroxide (Milk Of Magnesia) 2,400 mg PRN QHS PRN PO 1ST CHOICE CONSTIPATION 12/10/20 20:15 Acetaminophen (Tylenol) 650 mg PRN Q6HRS PRN PO pain or fever 12/10/20 20:45 UNV Baclofen (Lioresal) 10 mg TID PO 12/10/20 21:00 12/24/20 19:28 Bisacodyl (Dulcolax Tab) 5 mg PRN DAILY PRN PO 3RD CHOICE CONSTIPATION 12/10/20 20:45 Buspirone HCl (Buspar) 15 mg TID PO 12/10/20 21:00 12/24/20 19:28 Divalproex Sodium (Depakote Er) 250 mg TID PO 12/10/20 21:00 12/12/20 18:37 DC 12/12/20 14:01 Docusate Sodium (Colace) 100 mg BID PO 12/10/20 21:00 12/24/20 19:28 Famotidine (Pepcid) 20 mg HS PO 12/10/20 21:00 12/24/20 16:43 DC 12/23/20 20:35 Fentanyl (Duragesic 12mcg/ Hr) 1 patch Q3DAYS TD 12/12/20 09:00 12/24/20 09:30 Haloperidol (Haldol) 2 mg BID PO 12/10/20 21:00 12/19/20 18:33 DC 12/19/20 11:08 Sodium Biphosphate/ Sodium Phosphate (Fleet Adult) 133 ml PRN DAILY PRN RC 4TH CHOICE CONSTIPATION 12/10/20 20:45 12/16/20 06:24 Naloxegol (Movantik) 25 mg PRN DAILY PRN PO 2ND CHOICE CONSTIPATION 12/10/20 20:45 Paroxetine HCl (Paxil) 10 mg DAILY PO 12/11/20 09:00 12/18/20 11:40 DC 12/18/20 09:08 Polyethylene Glycol (miraLAX) 17 gm BID PO 12/10/20 21:00 10/6/21 19:28 Sennosides (Senna) 8.6 mg DAILY PO 12/11/20 09:00 12/24/20 12:37 Simvastatin (Zocor) 10 mg QHS PO 12/10/20 21:00 12/24/20 19:28 Tamsulosin HCl (Flomax) 0.4 mg DAILY PO 12/11/20 09:00 12/24/20 12:37 Insulin Human Lispro (HumaLOG) 10 units TIDWMEALS SQ 12/11/20 08:00 12/13/20 16:29 DC 12/13/20 12:31 Insulin Glargine (Lantus Syringe) 25 unit QHS SQ 12/10/20 21:00 12/24/20 21:38 Lactobacillus Rhamnosus (Culturelle) 1 cap BID PO 12/10/20 21:00 12/24/20 19:28 Multivitamins/ Calcium (Thera-M Plus) 1 tab DAILY PO 12/11/20 09:00 12/23/20 08:55 Paroxetine HCl (Paxil) 40 mg DAILY PO 12/11/20 09:00 12/18/20 11:40 DC 12/18/20 09:08 Divalproex Sodium (Depakote Sprinkles) 250 mg 0900,1400 PO 12/13/20 09:00 12/24/20 12:37 Divalproex Sodium (Depakote Sprinkles) 500 mg QHS PO 12/12/20 21:00 12/24/20 19:28 Insulin Human Lispro (HumaLOG) 5 units TIDWMEALS SQ 12/13/20 16:30 12/24/20 17:17 Ondansetron HCl (Zofran Odt) 4 mg PRN Q4HRS PRN PO NAUSEA/VOMITING 12/14/20 09:30 12/24/20 09:17 Methylnaltrexone [place] (Relistor) 12 mg ONCE ONCE SQ 12/14/20 16:00 12/14/20 16:01 DC 12/14/20 18:09 Olanzapine (ZyPREXA ZYDIS) 2.5 mg PRN Q2HRS PRN PO PSYCHOSIS 12/14/20 16:30 12/24/20 09:18 Lidocaine HCl (Glydo (Lidocaine) Jelly) 1 yisel 1X ONCE MM 12/15/20 16:15 12/15/20 16:16 DC 12/15/20 16:15 Nystatin (Nystop) 15 yisel STK-MED ONCE TP 12/16/20 02:29 12/16/20 02:30 DC Trimethoprim/ Sulfamethoxazole (Bactrim Ds) 1 tab BID PO 12/17/20 12:00 12/23/20 23:50 DC 12/23/20 20:35 Doxycycline Hyclate (Vibra-Tab) 100 mg BID PO 12/17/20 12:00 12/23/20 23:50 DC 12/23/20 20:34 Paroxetine HCl (Paxil) 30 mg DAILY PO 12/19/20 09:00 12/21/20 20:10 DC 12/21/20 09:42 Haloperidol (Haldol) 4 mg BID PO 12/19/20 21:00 12/22/20 20:19 DC 12/22/20 19:56 Atenolol (Tenormin) 50 mg DAILY PO 12/21/20 17:30 12/24/20 12:37 Potassium Chloride (Klor-Con) 20 meq DAILY PO 12/21/20 18:50 12/24/20 12:36 Paroxetine HCl (Paxil) 20 mg DAILY PO 12/22/20 09:00 12/24/20 12:36 Haloperidol (Haldol) 5 mg BID PO 12/23/20 09:00 12/24/20 19:29 Metoclopramide HCl (Reglan) 5 mg TIDACHC PO 12/24/20 17:00 12/24/20 19:31 Lansoprazole (Prevacid) 30 mg DAILYAC PO 12/25/20 07:30 Current Medications Medications (Trade) Dose Ordered Sig/Melissa Route PRN Reason Start Time Stop Time Status Last Admin Dose Admin Metoclopramide HCl (Reglan) 5 mg TIDACHC PO 12/24/20 17:00 12/24/20 19:31 I have reviewed the current psychotropics carefully including drug interactions. Risk benefit ratio favors no change other than as noted in my dictated progress note. Diagnosis: Problems: (1) Mood disorder (2) Impulse control disorder, unspecified (3) Anxiety disorder, unspecified (4) Bipolar disorder, current episode mixed, severe, with psychotic features EDSON VILLANUEVA MD Dec 25, 2020 08:51
[2020-12-25] MEDS: POLYETHYLENE GLYCOL 3350 17 GM PACKET. PO SCH ×2 (09:00→21:33)
[2020-12-25] MEDS: ATENOLOL 50 MG TABLET PO SCH (09:00)
[2020-12-25] MEDS: LANSOPRAZOLE 30 MG TAB.RAP.DR PO SCH (09:30)
[2020-12-25] MEDS: BACLOFEN 10 MG TABLET PO SCH ×3 (09:30→21:32)
[2020-12-25] MEDS: POTASSIUM CHLORIDE 20 MEQ TABLET.ER. PO SCH (09:30)
[2020-12-25] MEDS: METOCLOPRAMIDE 5 MG TABLET PO SCH ×4 (09:31→21:32)
[2020-12-25] MEDS: MULTIVITAMIN with MINERAL TABLET. PO SCH (09:31)
[2020-12-25] MEDS: DOCUSATE SODIUM 100 MG CAPSULE PO SCH ×2 (09:31→21:32)
[2020-12-25] MEDS: PARoxetine 20 MG TABLET PO SCH (09:31)
[2020-12-25] MEDS: busPIRone 15 MG TABLET. PO SCH ×3 (09:31→21:32)
[2020-12-25] MEDS: SENNOSIDES 8.6 MG TABLET PO SCH (09:31)
[2020-12-25] MEDS: DIVALPROEX 125 MG CAP.SPRINK PO SCH ×3 (09:32→21:33)
[2020-12-25] MEDS: LACTOBACILLUS RHAMNOSUS GG 1 CAPSULE. PO SCH ×2 (09:32→21:32)
[2020-12-25] MEDS: HALOPERIDOL 5 MG TABLET PO SCH ×2 (09:32→21:33)
[2020-12-25] MEDS: TAMSULOSIN 0.4 MG CAP.ER.24H. PO SCH (09:32)
--- NOTE | 2020-12-25 09:41 | NUR ---
Pt A&Ox4, absent of SI/HI/VH/AH/delusions/pain at this time. He has been once again intermittently yelling from his room for liquids. Staff continue to provide 180-280 mL/hr but he continues to consume it all in one sitting. He is compliant with medications crushed in pudding. He c/o intermittent nausea this morning, no episodes of emesis thus far. Plan of care continues, will pass to next shift. Addendum: 12/25/20 at 0944 by DANIEL HUANG RN Atenolol held d/t HR 58
--- NOTE | 2020-12-25 11:05 | NUR ---
WEEKLY ACTIVITY THERAPY NOTE Date of Admission: 12/10/20 Date of AT Assessment: 12/11/20 Precipitating behaviors that initiated intake and admission:Pt asking staff for staff, acting out aggressive, delusional states all staff are molesting him. Goal aimed: to increase engagement and socialization Initial Goal: Pt. will participate in at least five individual or Activity Therapy group sessions before discharge. Weekly progress towards goal: did not achieve Group participation level: no participation Weekly highlights: moved to group therapy side Behaviors observed: often in room Plan: no change to goal Beneficial adaptations: gilda holder
--- NOTE | 2020-12-25 14:27 | NUR ---
Treatment team update: Pt is eating less than 25% of meals but sleeping on average 7 hours per night. Pt continues to have intermittent periods of vomitting and yells out for something to drink repeatedly. Pt does exhibit helplessness at times; however, no sexually inappropriateness during cares and assessment has been noted. Furthermore, pt had exhibited a decrease in hallucinations. Pt had a ST consult completed and it is believed that pt may need a GI consult. Pt was started on Provera 2.5mg daily; other meds will be continued as same. ELOS for pt will be Tuesday or Tuesday of next week.
[2020-12-25 16:42] VITALS: BP 104/69
--- NOTE | 2020-12-25 16:46 | NUR ---
During tx team Dr Leon stated he would like input from Dr Lino about pt possibly starting Provera 2.5 mg PO QD. After discussing pt medical hx and medications Dr Lino states he is concerned about the medication's risk of increased DVT d/t pt's bedbound status. Will pass to Dr Leon.
[2020-12-25] MEDS: SIMVASTATIN 10 MG TABLET PO SCH (21:32)
[2020-12-25] MEDS: INSULIN GLARGINE SYRINGE. SQ SCH (21:34)
--- NOTE | 2020-12-25 21:58 | PDOC ---
Exam Note: Edgar Note: Please also refer to the separate dictated note~for this date of service dictated separately.~Patient seen individually. Discussed the patient with Nursing staff reviewed the chart.~Reviewed interim history and current functioning. Reviewed vital signs,~Labs/ Radiology~and current medications noted below. Continue current treatment with the changes noted in the dictated addendum note Assessment: Vital Signs/I&O: Vital Signs Date Time Temp Pulse Resp B/P (MAP) Pulse Ox O2 Delivery O2 Flow Rate FiO2 12/25/20 16:42 98.2 84 18 104/69 (81) 96 Room Air 12/24/20 15:33 2.0 I & O 12/24/20 12/24/20 12/25/20 15:00 23:00 07:00 Intake Total 580 ml 480 ml Balance 580 ml 480 ml Labs: Laboratory Tests Test 12/25/20 07:35 12/25/20 12:25 12/25/20 17:20 12/25/20 19:11 Glucose (Fingerstick) 99 mg/dL (70-99) 152 mg/dL (70-99) H 95 mg/dL (70-99) 157 mg/dL (70-99) H Current Medications: Meds: Laboratory Tests Test 12/25/20 07:35 12/25/20 12:25 12/25/20 17:20 12/25/20 19:11 Glucose (Fingerstick) 99 mg/dL 152 mg/dL 95 mg/dL 157 mg/dL Current Medications Medications (Trade) Dose Ordered Sig/Melissa Route PRN Reason Start Time Stop Time Status Last Admin Dose Admin Acetaminophen (Tylenol) 650 mg PRN Q6HRS PRN PO MILD PAIN / TEMP > 100.3'F 12/10/20 20:15 12/18/20 16:49 Multi-Ingredient Ointment (Analgesic [place]) 1 yisel PRN QID PRN TP MUSCLE PAIN 12/10/20 20:15 Al Hydroxide/Mg Hydroxide (Mylanta Plus Xs) 15 ml PRN AFTMEALHC PRN PO DYSPEPSIA 12/10/20 20:15 Magnesium Hydroxide (Milk Of Magnesia) 2,400 mg PRN QHS PRN PO 1ST CHOICE CONSTIPATION 12/10/20 20:15 Acetaminophen (Tylenol) 650 mg PRN Q6HRS PRN PO pain or fever 12/10/20 20:45 UNV Baclofen (Lioresal) 10 mg TID PO 12/10/20 21:00 12/25/20 21:32 Bisacodyl (Dulcolax Tab) 5 mg PRN DAILY PRN PO 3RD CHOICE CONSTIPATION 12/10/20 20:45 Buspirone HCl (Buspar) 15 mg TID PO 12/10/20 21:00 12/25/20 21:32 Divalproex Sodium (Depakote Er) 250 mg TID PO 12/10/20 21:00 12/12/20 18:37 DC 12/12/20 14:01 Docusate Sodium (Colace) 100 mg BID PO 12/10/20 21:00 12/25/20 21:32 Famotidine (Pepcid) 20 mg HS PO 12/10/20 21:00 12/24/20 16:43 DC 12/23/20 20:35 Fentanyl (Duragesic 12mcg/ Hr) 1 patch Q3DAYS TD 12/12/20 09:00 12/24/20 09:30 Haloperidol (Haldol) 2 mg BID PO 12/10/20 21:00 12/19/20 18:33 DC 12/19/20 11:08 Sodium Biphosphate/ Sodium Phosphate (Fleet Adult) 133 ml PRN DAILY PRN RC 4TH CHOICE CONSTIPATION 12/10/20 20:45 12/16/20 06:24 Naloxegol (Movantik) 25 mg PRN DAILY PRN PO 2ND CHOICE CONSTIPATION 12/10/20 20:45 Paroxetine HCl (Paxil) 10 mg DAILY PO 12/11/20 09:00 12/18/20 11:40 DC 12/18/20 09:08 Polyethylene Glycol (miraLAX) 17 gm BID PO 12/10/20 21:00 12/25/20 21:33 Sennosides (Senna) 8.6 mg DAILY PO 12/11/20 09:00 12/25/20 09:31 Simvastatin (Zocor) 10 mg QHS PO 12/10/20 21:00 12/25/20 21:32 Tamsulosin HCl (Flomax) 0.4 mg DAILY PO 12/11/20 09:00 12/25/20 09:32 Insulin Human Lispro (HumaLOG) 10 units TIDWMEALS SQ 12/11/20 08:00 12/13/20 16:29 DC 12/13/20 12:31 Insulin Glargine (Lantus Syringe) 25 unit QHS SQ 12/10/20 21:00 12/25/20 21:34 Lactobacillus Rhamnosus (Culturelle) 1 cap BID PO 12/10/20 21:00 12/25/20 21:32 Multivitamins/ Calcium (Thera-M Plus) 1 tab DAILY PO 12/11/20 09:00 12/25/20 09:31 Paroxetine HCl (Paxil) 40 mg DAILY PO 12/11/20 09:00 12/18/20 11:40 DC 12/18/20 09:08 Divalproex Sodium (Depakote Sprinkles) 250 mg 0900,1400 PO 12/13/20 09:00 12/25/20 17:24 Divalproex Sodium (Depakote Sprinkles) 500 mg QHS PO 12/12/20 21:00 12/25/20 21:33 Insulin Human Lispro (HumaLOG) 5 units TIDWMEALS SQ 12/13/20 16:30 12/24/20 17:17 Ondansetron HCl (Zofran Odt) 4 mg PRN Q4HRS PRN PO NAUSEA/VOMITING 12/14/20 09:30 12/24/20 09:17 Methylnaltrexone [place] (Relistor) 12 mg ONCE ONCE SQ 12/14/20 16:00 12/14/20 16:01 DC 12/14/20 18:09 Olanzapine (ZyPREXA ZYDIS) 2.5 mg PRN Q2HRS PRN PO PSYCHOSIS 12/14/20 16:30 12/24/20 09:18 Lidocaine HCl (Glydo (Lidocaine) Jelly) 1 yisel 1X ONCE MM 12/15/20 16:15 12/15/20 16:16 DC 12/15/20 16:15 Nystatin (Nystop) 15 yisel STK-MED ONCE TP 12/16/20 02:29 12/16/20 02:30 DC Trimethoprim/ Sulfamethoxazole (Bactrim Ds) 1 tab BID PO 12/17/20 12:00 12/23/20 23:50 DC 12/23/20 20:35 Doxycycline Hyclate (Vibra-Tab) 100 mg BID PO 12/17/20 12:00 12/23/20 23:50 DC 12/23/20 20:34 Paroxetine HCl (Paxil) 30 mg DAILY PO 12/19/20 09:00 12/21/20 20:10 DC 12/21/20 09:42 Haloperidol (Haldol) 4 mg BID PO 12/19/20 21:00 12/22/20 20:19 DC 12/22/20 19:56 Atenolol (Tenormin) 50 mg DAILY PO 12/21/20 17:30 12/25/20 16:20 DC 12/24/20 12:37 Potassium Chloride (Klor-Con) 20 meq DAILY PO 12/21/20 18:50 12/25/20 09:30 Paroxetine HCl (Paxil) 20 mg DAILY PO 12/22/20 09:00 12/25/20 09:31 Haloperidol (Haldol) 5 mg BID PO 12/23/20 09:00 12/25/20 21:33 Metoclopramide HCl (Reglan) 5 mg TIDACHC PO 12/24/20 17:00 12/25/20 21:32 Lansoprazole (Prevacid) 30 mg DAILYAC PO 12/25/20 07:30 12/25/20 09:30 Atenolol (Tenormin) 25 mg DAILY PO 12/26/20 09:00 Current Medications Medications (Trade) Dose Ordered Sig/Melissa Route PRN Reason Start Time Stop Time Status Last Admin Dose Admin Lansoprazole (Prevacid) 30 mg DAILYAC PO 12/25/20 07:30 12/25/20 09:30 I have reviewed the current psychotropics carefully including drug interactions. Risk benefit ratio favors no change other than as noted in my dictated progress note. Diagnosis: Problems: (1) Schizoaffective disorder, bipolar type (2) Mood disorder (3) Impulse control disorder, unspecified (4) Anxiety disorder, unspecified (5) Bipolar disorder, current episode mixed, severe, with psychotic features EDSON VILLANUEVA MD Dec 25, 2020 21:58
--- NOTE | 2020-12-25 22:23 | NUR ---
Nursing Note Pt in bed during shift change, compliant with meds and assessments. States he has been wet all day and all night and is surprised that his skin is better because it was bright sanchez red before today. Stated "I usually am able to use the urinal, I place it between by legs and am able to manage it. They have not cleaned me up today or last night, I have been sitting in urine and no one seems to notice or care." Informed this pleasant gentleman that he needs to understand that he is not in his usual situation, that the bed surface will not allow for the use of the urinal because it is very soft and air filled. Pt given meds with thick liquids and he continues to gulp meds and liquids while asking for more.
[2020-12-26 06:24] VITALS: BP 133/87
[2020-12-26] MEDS: INSULIN LISPRO 300 UNITS/3 ML VIAL. SQ SCH ×3 (08:00→17:18)
[2020-12-26] MEDS: METOCLOPRAMIDE 5 MG TABLET PO SCH ×4 (08:20→20:02)
[2020-12-26] MEDS: LACTOBACILLUS RHAMNOSUS GG 1 CAPSULE. PO SCH ×2 (08:21→20:03)
[2020-12-26] MEDS: DIVALPROEX 125 MG CAP.SPRINK PO SCH ×3 (08:21→20:03)
[2020-12-26] MEDS: busPIRone 15 MG TABLET. PO SCH ×3 (08:21→20:02)
[2020-12-26] MEDS: MULTIVITAMIN with MINERAL TABLET. PO SCH (08:21)
[2020-12-26] MEDS: PARoxetine 20 MG TABLET PO SCH (08:22)
[2020-12-26] MEDS: BACLOFEN 10 MG TABLET PO SCH ×3 (08:22→20:02)
[2020-12-26] MEDS: SENNOSIDES 8.6 MG TABLET PO SCH (08:22)
[2020-12-26] MEDS: POLYETHYLENE GLYCOL 3350 17 GM PACKET. PO SCH ×2 (08:22→20:03)
[2020-12-26] MEDS: ATENOLOL 50 MG TABLET PO SCH (08:22)
[2020-12-26] MEDS: DOCUSATE SODIUM 100 MG CAPSULE PO SCH ×2 (08:23→20:03)
[2020-12-26] MEDS: TAMSULOSIN 0.4 MG CAP.ER.24H. PO SCH (08:23)
[2020-12-26] MEDS: POTASSIUM CHLORIDE 20 MEQ TABLET.ER. PO SCH (08:23)
[2020-12-26] MEDS: HALOPERIDOL 5 MG TABLET PO SCH ×2 (08:23→20:03)
[2020-12-26] MEDS: LANSOPRAZOLE 30 MG TAB.RAP.DR PO SCH (09:39)
--- NOTE | 2020-12-26 15:36 | NUR ---
Nsg Note; Using a lift, Francisco Javier was placed in his w/c and brought to the dayroom this afternoon. He cont to demand food and drinks. We are spacing things out to help prevent vomiting. Another pt came in to the dayroom humming, and Francisco Javier very rudely yelled at him and told him to "shut-up". He is being demanding and rude to staff
[2020-12-26 16:04] VITALS: BP 116/80
[2020-12-26] MEDS: SIMVASTATIN 10 MG TABLET PO SCH (20:03)
[2020-12-26] MEDS: INSULIN GLARGINE SYRINGE. SQ SCH (20:04)
--- NOTE | 2020-12-26 21:57 | PDOC ---
Exam Note: Edgar Note: Please also refer to the separate dictated note~for this date of service dictated separately.~Patient seen individually. Discussed the patient with Nursing staff reviewed the chart.~Reviewed interim history and current functioning. Reviewed vital signs,~Labs/ Radiology~and current medications noted below. Continue current treatment with the changes noted in the dictated addendum note Assessment: Vital Signs/I&O: Vital Signs Date Time Temp Pulse Resp B/P (MAP) Pulse Ox O2 Delivery O2 Flow Rate FiO2 12/26/20 16:04 98.2 77 18 116/80 (92) 94 12/25/20 16:42 Room Air 12/24/20 15:33 2.0 I & O 0 12/25/20 12/25/20 12/26/20 15:00 23:00 07:00 Intake Total 360 ml 600 ml Balance 360 ml 600 ml Labs: Laboratory Tests Test 12/26/20 07:06 12/26/20 11:23 12/26/20 16:26 12/26/20 19:39 Glucose (Fingerstick) 101 mg/dL (70-99) H 127 mg/dL (70-99) H 203 mg/dL (70-99) H 169 mg/dL (70-99) H Current Medications: Meds: Laboratory Tests Test 12/26/20 07:06 12/26/20 11:23 12/26/20 16:26 12/26/20 19:39 Glucose (Fingerstick) 101 mg/dL 127 mg/dL 203 mg/dL 169 mg/dL Current Medications Medications (Trade) Dose Ordered Sig/Melissa Route PRN Reason Start Time Stop Time Status Last Admin Dose Admin Acetaminophen (Tylenol) 650 mg PRN Q6HRS PRN PO MILD PAIN / TEMP > 100.3'F 12/10/20 20:15 12/18/20 16:49 Multi-Ingredient Ointment (Analgesic [place]) 1 yisel PRN QID PRN TP MUSCLE PAIN 12/10/20 20:15 Al Hydroxide/Mg Hydroxide (Mylanta Plus Xs) 15 ml PRN AFTMEALHC PRN PO DYSPEPSIA 12/10/20 20:15 Magnesium Hydroxide (Milk Of Magnesia) 2,400 mg PRN QHS PRN PO 1ST CHOICE CONSTIPATION 12/10/20 20:15 Acetaminophen (Tylenol) 650 mg PRN Q6HRS PRN PO pain or fever 12/10/20 20:45 UNV Baclofen (Lioresal) 10 mg TID PO 12/10/20 21:00 12/26/20 20:02 Bisacodyl (Dulcolax Tab) 5 mg PRN DAILY PRN PO 3RD CHOICE CONSTIPATION 12/10/20 20:45 Buspirone HCl (Buspar) 15 mg TID PO 12/10/20 21:00 12/26/20 20:02 Divalproex Sodium (Depakote Er) 250 mg TID PO 12/10/20 21:00 12/12/20 18:37 DC 12/12/20 14:01 Docusate Sodium (Colace) 100 mg BID PO 12/10/20 21:00 12/26/20 20:03 Famotidine (Pepcid) 20 mg HS PO 12/10/20 21:00 12/24/20 16:43 DC 12/23/20 20:35 Fentanyl (Duragesic 12mcg/ Hr) 1 patch Q3DAYS TD 12/12/20 09:00 12/24/20 09:30 Haloperidol (Haldol) 2 mg BID PO 12/10/20 21:00 12/19/20 18:33 DC 12/19/20 11:08 Sodium Biphosphate/ Sodium Phosphate (Fleet Adult) 133 ml PRN DAILY PRN RC 4TH CHOICE CONSTIPATION 12/10/20 20:45 12/16/20 06:24 Naloxegol (Movantik) 25 mg PRN DAILY PRN PO 2ND CHOICE CONSTIPATION 12/10/20 20:45 Paroxetine HCl (Paxil) 10 mg DAILY PO 12/11/20 09:00 12/18/20 11:40 DC 12/18/20 09:08 Polyethylene Glycol (miraLAX) 17 gm BID PO 12/10/20 21:00 12/26/20 08:22 Sennosides (Senna) 8.6 mg DAILY PO 12/11/20 09:00 12/26/20 08:22 Simvastatin (Zocor) 10 mg QHS PO 12/10/20 21:00 12/26/20 20:03 Tamsulosin HCl (Flomax) 0.4 mg DAILY PO 12/11/20 09:00 12/26/20 08:23 Insulin Human Lispro (HumaLOG) 10 units TIDWMEALS SQ 12/11/20 08:00 12/13/20 16:29 DC 12/13/20 12:31 Insulin Glargine (Lantus Syringe) 25 unit QHS SQ 12/10/20 21:00 12/26/20 20:04 Lactobacillus Rhamnosus (Culturelle) 1 cap BID PO 12/10/20 21:00 12/26/20 20:03 Multivitamins/ Calcium (Thera-M Plus) 1 tab DAILY PO 12/11/20 09:00 12/26/20 08:21 Paroxetine HCl (Paxil) 40 mg DAILY PO 12/11/20 09:00 12/18/20 11:40 DC 12/18/20 09:08 Divalproex Sodium (Depakote Sprinkles) 250 mg 0900,1400 PO 12/13/20 09:00 12/26/20 15:29 Divalproex Sodium (Depakote Sprinkles) 500 mg QHS PO 12/12/20 21:00 12/26/20 20:03 Insulin Human Lispro (HumaLOG) 5 units TIDWMEALS SQ 12/13/20 16:30 12/26/20 17:18 Ondansetron HCl (Zofran Odt) 4 mg PRN Q4HRS PRN PO NAUSEA/VOMITING 12/14/20 09:30 12/24/20 09:17 Methylnaltrexone [place] (Relistor) 12 mg ONCE ONCE SQ 12/14/20 16:00 12/14/20 16:01 DC 12/14/20 18:09 Olanzapine (ZyPREXA ZYDIS) 2.5 mg PRN Q2HRS PRN PO PSYCHOSIS 12/14/20 16:30 12/26/20 15:28 Lidocaine HCl (Glydo (Lidocaine) Jelly) 1 yisel 1X ONCE MM 12/15/20 16:15 12/15/20 16:16 DC 12/15/20 16:15 Nystatin (Nystop) 15 yisel STK-MED ONCE TP 12/16/20 02:29 12/16/20 02:30 DC Trimethoprim/ Sulfamethoxazole (Bactrim Ds) 1 tab BID PO 12/17/20 12:00 12/23/20 23:50 DC 12/23/20 20:35 Doxycycline Hyclate (Vibra-Tab) 100 mg BID PO 12/17/20 12:00 12/23/20 23:50 DC 12/23/20 20:34 Paroxetine HCl (Paxil) 30 mg DAILY PO 12/19/20 09:00 12/21/20 20:10 DC 12/21/20 09:42 Haloperidol (Haldol) 4 mg BID PO 12/19/20 21:00 12/22/20 20:19 DC 12/22/20 19:56 Atenolol (Tenormin) 50 mg DAILY PO 12/21/20 17:30 12/25/20 16:20 DC 12/24/20 12:37 Potassium Chloride (Klor-Con) 20 meq DAILY PO 12/21/20 18:50 12/26/20 08:23 Paroxetine HCl (Paxil) 20 mg DAILY PO 12/22/20 09:00 12/26/20 08:22 Haloperidol (Haldol) 5 mg BID PO 12/23/20 09:00 12/26/20 20:03 Metoclopramide HCl (Reglan) 5 mg TIDACHC PO 12/24/20 17:00 12/26/20 20:02 Lansoprazole (Prevacid) 30 mg DAILYAC PO 12/25/20 07:30 12/26/20 09:41 DC 12/26/20 09:39 Atenolol (Tenormin) 25 mg DAILY PO 12/26/20 09:00 12/26/20 08:22 Lansoprazole (Prevacid) 30 mg DAILY06 PO 12/27/20 06:00 Current Medications Medications (Trade) Dose Ordered Sig/Melissa Route PRN Reason Start Time Stop Time Status Last Admin Dose Admin Atenolol (Tenormin) 25 mg DAILY PO 12/26/20 09:00 12/26/20 08:22 I have reviewed the current psychotropics carefully including drug interactions. Risk benefit ratio favors no change other than as noted in my dictated progress note. Diagnosis: Problems: (1) Schizoaffective disorder, bipolar type (2) Mood disorder (3) Impulse control disorder, unspecified (4) Anxiety disorder, unspecified (5) Bipolar disorder, current episode mixed, severe, with psychotic features EDSON VILLANUEVA MD Dec 26, 2020 21:57
--- NOTE | 2020-12-27 04:21 | NUR ---
Per patient primary nurse, TARAN Acosta, please see patients hard chart for shift progress note.
[2020-12-27] MEDS: LANSOPRAZOLE 30 MG TAB.RAP.DR PO SCH (04:59)
[2020-12-27 06:34] VITALS: BP 105/69
[2020-12-27] MEDS: ATENOLOL 50 MG TABLET PO SCH (08:26)
[2020-12-27] MEDS: SENNOSIDES 8.6 MG TABLET PO SCH (08:26)
[2020-12-27] MEDS: METOCLOPRAMIDE 5 MG TABLET PO SCH ×4 (08:26→20:58)
[2020-12-27] MEDS: POTASSIUM CHLORIDE 20 MEQ TABLET.ER. PO SCH (08:26)
[2020-12-27] MEDS: PARoxetine 20 MG TABLET PO SCH (08:26)
[2020-12-27] MEDS: BACLOFEN 10 MG TABLET PO SCH ×3 (08:26→20:51)
[2020-12-27] MEDS: DIVALPROEX 125 MG CAP.SPRINK PO SCH ×3 (08:26→20:51)
[2020-12-27] MEDS: MULTIVITAMIN with MINERAL TABLET. PO SCH (08:27)
[2020-12-27] MEDS: busPIRone 15 MG TABLET. PO SCH ×3 (08:27→20:51)
[2020-12-27] MEDS: TAMSULOSIN 0.4 MG CAP.ER.24H. PO SCH (08:27)
[2020-12-27] MEDS: LACTOBACILLUS RHAMNOSUS GG 1 CAPSULE. PO SCH ×2 (08:27→20:51)
[2020-12-27] MEDS: HALOPERIDOL 5 MG TABLET PO SCH ×2 (08:27→20:52)
[2020-12-27] MEDS: DOCUSATE SODIUM 100 MG CAPSULE PO SCH ×2 (08:27→20:51)
[2020-12-27] MEDS: fentaNYL 12MCG/HR 1 PATCH PATCH TD SCH (08:30)
[2020-12-27] MEDS: POLYETHYLENE GLYCOL 3350 17 GM PACKET. PO SCH ×2 (08:31→20:52)
[2020-12-27] MEDS: INSULIN LISPRO 300 UNITS/3 ML VIAL. SQ SCH ×3 (08:34→17:31)
--- NOTE | 2020-12-27 12:30 | NUR ---
Patient has been helpless, repeatedly calling out, and attention seeking all morning. He has been obsessing over getting a drink and repeatedly asks staff for various drinks. Verbal redirection and education r/t timing his drinks to prevent him from vomiting provided multiple times. Patient has also been repeatedly asking to use the restroom and then not being able to urinate. PRN medication provided per eMAR, will continue to monitor.
[2020-12-27 15:39] VITALS: BP 121/71
--- NOTE | 2020-12-27 16:00 | NUR ---
CNAs report patient has elevated temperature and heart rate. Patient's skin is warm throughout his body, lung sounds clear, no complaints of pain. MD notified, new orders received. Will continue to monitor and report to oncoming shift.
--- NOTE | 2020-12-27 16:05 | RAD ---
EXAM: CHEST ONE VIEW. HISTORY: Fever, tachycardia. COMPARISON: 11/07/2014. FINDINGS: A frontal view of the chest is obtained. The inspiration is small. There are no confluent infiltrates. There is no pneumothorax or pleural eff usion. The heart is not enlarged. IMPRESSION: 1. Small inspiration. No confluent infiltrates. Electronically signed by: Jessee Braden MD (12/27/2020 4:02 PM) [facility]
[2020-12-27 16:07] LABS: BASO # 0.1 x10^3/uL (0.0-0.2); BASO % 1 % (0-3); EOS # 0.1 x10^3/uL (0.0-0.7); EOS % 2 % (0-3); HEMATOCRIT 44.4 % (39.0-53.0); LYMPH # 1.4 x10^3/uL (1.0-4.8); LYMPH % 16 % (24-48); MEAN CORPUSCULAR HEMOGLOBIN 27 pg (25-35); MEAN CORPUSCULAR HGB CONC 32 g/dL (31-37); MEAN CORPUSCULAR VOLUME 86 fL (79-100); MONO # 0.7 x10^3/uL (0.0-1.1); MONO % 8 % (0-9); NEUT % 75 % (31-73); PLATELET COUNT 152 x10^3/uL (140-400); RED BLOOD COUNT 5.19 x10^6/uL (4.30-5.70); RED CELL DISTRIBUTION WIDTH 16.5 % (11.5-14.5); WHITE BLOOD COUNT 9.3 x10^3/uL (4.0-11.0)
[2020-12-27 16:27] LABS: CALCIUM 9.4 mg/dL (8.5-10.1); CREATININE 1.1 mg/dL (0.7-1.3); GFR 70.9; POTASSIUM 4.9 mmol/L (3.5-5.1)
[2020-12-27 16:32] LABS: ALBUMIN 2.9 g/dL (3.4-5.0); ALBUMIN/GLOBULIN RATIO 0.6 (1.0-1.7); TOTAL BILIRUBIN 0.2 mg/dL (0.2-1.0); TOTAL PROTEIN 8.1 g/dL (6.4-8.2)
[2020-12-27 17:21] LABS: BILIRUBIN,URINE NEG (NEG); CLARITY,URINE CLEAR; COLOR,URINE YELLOW; GLUCOSE,URINE NEG (NEG); UROBILINOGEN,URINE 0.2 mg/dL (0.2 mg/dL)
[2020-12-27 17:22] LABS: BACTERIA,URINE MANY /HPF (0-FEW); NITRITE,URINE POS (NEG)
[2020-12-27] MEDS: ACETAMINOPHEN 325 MG TABLET PO PRN (17:30)
[2020-12-27] MEDS ORDERED: CEFDINIR 300 MG CAPSULE PO SCH (18:45)
[2020-12-27] MEDS: SIMVASTATIN 10 MG TABLET PO SCH (20:52)
[2020-12-27] MEDS: CEFDINIR 300 MG CAPSULE PO SCH (20:52)
[2020-12-27] MEDS: INSULIN GLARGINE SYRINGE. SQ SCH (20:54)
--- NOTE | 2020-12-27 21:56 | PDOC ---
Exam Note: Edgar Note: Please also refer to the separate dictated note~for this date of service dictated separately.~Patient seen individually. Discussed the patient with Nursing staff reviewed the chart.~Reviewed interim history and current functioning. Reviewed vital signs,~Labs/ Radiology~and current medications noted below. Continue current treatment with the changes noted in the dictated addendum note Assessment: Vital Signs/I&O: Vital Signs Date Time Temp Pulse Resp B/P (MAP) Pulse Ox O2 Delivery O2 Flow Rate FiO2 12/27/20 15:39 100.7 115 20 121/71 (88) 94 12/27/20 12:42 Room Air 12/24/20 15:33 2.0 I & O 12/26/20 12/26/20 12/27/20 15:00 23:00 07:00 Intake Total 1600 ml 600 ml Balance 1600 ml 600 ml Labs: Laboratory Tests Test 12/27/20 07:16 12/27/20 11:27 12/27/20 16:00 12/27/20 16:32 Glucose (Fingerstick) 107 mg/dL (70-99) H 239 mg/dL (70-99) H 189 mg/dL (70-99) H White Blood Count 9.3 x10^3/uL (4.0-11.0) Red Blood Count 5.19 x10^6/uL (4.30-5.70) Hemoglobin 14.0 g/dL (13.0-17.5) Hematocrit 44.4 % (39.0-53.0) Mean Corpuscular Volume 86 fL (79-100) Mean Corpuscular Hemoglobin 27 pg (25-35) Mean Corpuscular Hemoglobin Concent 32 g/dL (31-37) Red Cell Distribution Width 16.5 % (11.5-14.5) H Platelet Count 152 x10^3/uL (140-400) Neutrophils (%) (Auto) 75 % (31-73) H Lymphocytes (%) (Auto) 16 % (24-48) L Monocytes (%) (Auto) 8 % (0-9) Eosinophils (%) (Auto) 2 % (0-3) Basophils (%) (Auto) 1 % (0-3) Neutrophils # (Auto) 7.0 x10^3uL (1.8-7.7) Lymphocytes # (Auto) 1.4 x10^3/uL (1.0-4.8) Monocytes # (Auto) 0.7 x10^3/uL (0.0-1.1) Eosinophils # (Auto) 0.1 x10^3/uL (0.0-0.7) Basophils # (Auto) 0.1 x10^3/uL (0.0-0.2) Sodium Level 139 mmol/L (136-145) Potassium Level 4.9 mmol/L (3.5-5.1) Chloride Level 106 mmol/L (98-107) Carbon Dioxide Level 24 mmol/L (21-32) Anion Gap 9 (6-14) Blood Urea Nitrogen 25 mg/dL (8-26) Creatinine 1.1 mg/dL (0.7-1.3) Estimated GFR (Cockcroft-Gault) 70.9 BUN/Creatinine Ratio 23 (6-20) H Glucose Level 220 mg/dL (70-99) H Calcium Level 9.4 mg/dL (8.5-10.1) Total Bilirubin 0.2 mg/dL (0.2-1.0) Aspartate Amino Transferase (AST) 7 U/L (15-37) L Alanine Aminotransferase (ALT) 15 U/L (16-63) L Alkaline Phosphatase 71 U/L (46-116) Total Protein 8.1 g/dL (6.4-8.2) Albumin 2.9 g/dL (3.4-5.0) L Albumin/Globulin Ratio 0.6 (1.0-1.7) L Test 12/27/20 16:45 12/27/20 19:01 Urine Collection Type Unknown Urine Color Yellow Urine Clarity Clear Urine pH 8.5 Urine Specific [place] 1.015 Urine Protein 100 mg/dl (NEG-TRACE) Urine Glucose (UA) Neg mg/dL (NEG) Urine Ketones (Stick) Neg mg/dL (NEG) Urine Blood Large (NEG) Urine Nitrite Pos (NEG) Urine Bilirubin Neg (NEG) Urine Urobilinogen Dipstick 0.2 mg/dL (0.2 mg/dL) Urine Leukocyte Esterase Large (NEG) Urine RBC 6-10 /HPF (0-2) Urine WBC 11-20 /HPF (0-4) Urine Squamous Epithelial Cells None /LPF Urine Transitional Epithelial Cells Few /LPF Urine Bacteria Many /HPF (0-FEW) Glucose (Fingerstick) 209 mg/dL (70-99) H Current Medications: Meds: Laboratory Tests Test 12/27/20 07:16 12/27/20 11:27 12/27/20 16:00 12/27/20 16:32 Glucose (Fingerstick) 107 mg/dL 239 mg/dL 189 mg/dL White Blood Count 9.3 x10^3/uL Red Blood Count 5.19 x10^6/uL Hemoglobin 14.0 g/dL Hematocrit 44.4 % Mean Corpuscular Volume 86 fL Mean Corpuscular Hemoglobin 27 pg Mean Corpuscular Hemoglobin Concent 32 g/dL Red Cell Distribution Width 16.5 % Platelet Count 152 x10^3/uL Neutrophils (%) (Auto) 75 % Lymphocytes (%) (Auto) 16 % Monocytes (%) (Auto) 8 % Eosinophils (%) (Auto) 2 % Basophils (%) (Auto) 1 % Neutrophils # (Auto) 7.0 x10^3uL Lymphocytes # (Auto) 1.4 x10^3/uL Monocytes # (Auto) 0.7 x10^3/uL Eosinophils # (Auto) 0.1 x10^3/uL Basophils # (Auto) 0.1 x10^3/uL Sodium Level 139 mmol/L Potassium Level 4.9 mmol/L Chloride Level 106 mmol/L Carbon Dioxide Level 24 mmol/L Anion Gap 9 Blood Urea Nitrogen 25 mg/dL Creatinine 1.1 mg/dL Estimated GFR (Cockcroft-Gault) 70.9 BUN/Creatinine Ratio 23 Glucose Level 220 mg/dL Calcium Level 9.4 mg/dL Total Bilirubin 0.2 mg/dL Aspartate Amino Transf (AST/SGOT) 7 U/L Alanine Aminotransferase (ALT/SGPT) 15 U/L Alkaline Phosphatase 71 U/L Total Protein 8.1 g/dL Albumin 2.9 g/dL Albumin/Globulin Ratio 0.6 Test 12/27/20 16:45 12/27/20 19:01 Urine Collection Type Unknown Urine Color Yellow Urine Clarity Clear Urine pH 8.5 Urine Specific [place] 1.015 Urine Protein 100 mg/dl Urine Glucose (UA) Neg mg/dL Urine Ketones (Stick) Neg mg/dL Urine Blood Large Urine Nitrite Pos Urine Bilirubin Neg Urine Urobilinogen Dipstick 0.2 mg/dL Urine Leukocyte Esterase Large Urine RBC 6-10 /HPF Urine WBC 11-20 /HPF Urine Squamous Epithelial Cells None /LPF Urine Transitional Epithelial Cells Few /LPF Urine Bacteria Many /HPF Glucose (Fingerstick) 209 mg/dL Current Medications Medications (Trade) Dose Ordered Sig/Melissa Route PRN Reason Start Time Stop Time Status Last Admin Dose Admin Acetaminophen (Tylenol) 650 mg PRN Q6HRS PRN PO MILD PAIN / TEMP > 100.3'F 12/10/20 20:15 12/27/20 17:30 Multi-Ingredient Ointment (Analgesic [place]) 1 yisel PRN QID PRN TP MUSCLE PAIN 12/10/20 20:15 Al Hydroxide/Mg Hydroxide (Mylanta Plus Xs) 15 ml PRN AFTMEALHC PRN PO DYSPEPSIA 12/10/20 20:15 Magnesium Hydroxide (Milk Of Magnesia) 2,400 mg PRN QHS PRN PO 1ST CHOICE CONSTIPATION 12/10/20 20:15 Acetaminophen (Tylenol) 650 mg PRN Q6HRS PRN PO pain or fever 12/10/20 20:45 UNV Baclofen (Lioresal) 10 mg TID PO 12/10/20 21:00 12/27/20 20:51 Bisacodyl (Dulcolax Tab) 5 mg PRN DAILY PRN PO 3RD CHOICE CONSTIPATION 12/10/20 20:45 Buspirone HCl (Buspar) 15 mg TID PO 12/10/20 21:00 12/27/20 20:51 Divalproex Sodium (Depakote Er) 250 mg TID PO 12/10/20 21:00 12/12/20 18:37 DC 12/12/20 14:01 Docusate Sodium (Colace) 100 mg BID PO 12/10/20 21:00 12/27/20 20:51 Famotidine (Pepcid) 20 mg HS PO 12/10/20 21:00 12/24/20 16:43 DC 12/23/20 20:35 Fentanyl (Duragesic 12mcg/ Hr) 1 patch Q3DAYS TD 12/12/20 09:00 12/27/20 08:30 Haloperidol (Haldol) 2 mg BID PO 12/10/20 21:00 12/19/20 18:33 DC 12/19/20 11:08 Sodium Biphosphate/ Sodium Phosphate (Fleet Adult) 133 ml PRN DAILY PRN RC 4TH CHOICE CONSTIPATION 12/10/20 20:45 12/16/20 06:24 Naloxegol (Movantik) 25 mg PRN DAILY PRN PO 2ND CHOICE CONSTIPATION 12/10/20 20:45 Paroxetine HCl (Paxil) 10 mg DAILY PO 12/11/20 09:00 12/18/20 11:40 DC 12/18/20 09:08 Polyethylene Glycol (miraLAX) 17 gm BID PO 12/10/20 21:00 12/27/20 20:52 Sennosides (Senna) 8.6 mg DAILY PO 12/11/20 09:00 12/27/20 08:26 Simvastatin (Zocor) 10 mg QHS PO 12/10/20 21:00 12/27/20 20:52 Tamsulosin HCl (Flomax) 0.4 mg DAILY PO 12/11/20 09:00 12/27/20 08:27 Insulin Human Lispro (HumaLOG) 10 units TIDWMEALS SQ 12/11/20 08:00 12/13/20 16:29 DC 12/13/20 12:31 Insulin Glargine (Lantus Syringe) 25 unit QHS SQ 12/10/20 21:00 12/27/20 20:54 Lactobacillus Rhamnosus (Culturelle) 1 cap BID PO 12/10/20 21:00 12/27/20 20:51 Multivitamins/ Calcium (Thera-M Plus) 1 tab DAILY PO 12/11/20 09:00 12/27/20 08:27 Paroxetine HCl (Paxil) 40 mg DAILY PO 12/11/20 09:00 12/18/20 11:40 DC 12/18/20 09:08 Divalproex Sodium (Depakote Sprinkles) 250 mg 0900,1400 PO 12/13/20 09:00 12/27/20 13:06 Divalproex Sodium (Depakote Sprinkles) 500 mg QHS PO 12/12/20 21:00 12/27/20 20:51 Insulin Human Lispro (HumaLOG) 5 units TIDWMEALS SQ 12/13/20 16:30 12/27/20 17:31 Ondansetron HCl (Zofran Odt) 4 mg PRN Q4HRS PRN PO NAUSEA/VOMITING 12/14/20 09:30 12/24/20 09:17 Methylnaltrexone [place] (Relistor) 12 mg ONCE ONCE SQ 12/14/20 16:00 12/14/20 16:01 DC 12/14/20 18:09 Olanzapine (ZyPREXA ZYDIS) 2.5 mg PRN Q2HRS PRN PO PSYCHOSIS 12/14/20 16:30 12/26/20 15:28 Lidocaine HCl (Glydo (Lidocaine) Jelly) 1 yisel 1X ONCE MM 12/15/20 16:15 12/15/20 16:16 DC 12/15/20 16:15 Nystatin (Nystop) 15 yisel STK-MED ONCE TP 12/16/20 02:29 12/16/20 02:30 DC Trimethoprim/ Sulfamethoxazole (Bactrim Ds) 1 tab BID PO 12/17/20 12:00 12/23/20 23:50 DC 12/23/20 20:35 Doxycycline Hyclate (Vibra-Tab) 100 mg BID PO 12/17/20 12:00 12/23/20 23:50 DC 12/23/20 20:34 Paroxetine HCl (Paxil) 30 mg DAILY PO 12/19/20 09:00 12/21/20 20:10 DC 12/21/20 09:42 Haloperidol (Haldol) 4 mg BID PO 12/19/20 21:00 12/22/20 20:19 DC 12/22/20 19:56 Atenolol (Tenormin) 50 mg DAILY PO 12/21/20 17:30 12/25/20 16:20 DC 12/24/20 12:37 Potassium Chloride (Klor-Con) 20 meq DAILY PO 12/21/20 18:50 12/27/20 08:26 Paroxetine HCl (Paxil) 20 mg DAILY PO 12/22/20 09:00 12/27/20 08:26 Haloperidol (Haldol) 5 mg BID PO 12/23/20 09:00 12/27/20 20:52 Metoclopramide HCl (Reglan) 5 mg TIDACHC PO 12/24/20 17:00 12/27/20 20:58 Lansoprazole (Prevacid) 30 mg DAILYAC PO 12/25/20 07:30 10/8/21 09:41 DC 12/26/20 09:39 Atenolol (Tenormin) 25 mg DAILY PO 12/26/20 09:00 12/26/20 08:22 Lansoprazole (Prevacid) 30 mg DAILY06 PO 12/27/20 06:00 12/27/20 04:59 Cefdinir (Omnicef) 300 mg BID PO 12/27/20 18:45 12/27/20 18:51 Cancel Cefdinir (Omnicef) 300 mg BID PO 12/27/20 21:00 01/03/21 22:00 12/27/20 20:52 Current Medications Medications (Trade) Dose Ordered Sig/Melissa Route PRN Reason Start Time Stop Time Status Last Admin Dose Admin Lansoprazole (Prevacid) 30 mg DAILY06 PO 12/27/20 06:00 12/27/20 04:59 Cefdinir (Omnicef) 300 mg BID PO 12/27/20 21:00 01/03/21 22:00 12/27/20 20:52 I have reviewed the current psychotropics carefully including drug interactions. Risk benefit ratio favors no change other than as noted in my dictated progress note. Diagnosis: Problems: (1) Schizoaffective disorder, bipolar type (2) Mood disorder (3) Impulse control disorder, unspecified (4) Anxiety disorder, unspecified (5) Bipolar disorder, current episode mixed, severe, with psychotic features EDSON VILLANUEVA MD Dec 27, 2020 21:56
--- NOTE | 2020-12-28 00:07 | NUR ---
Patient cooperative with nurse, corby compliant. He is calm at this time and has not been overly demanding tonight. Patient denied pain when asked.
[2020-12-28] MEDS: LANSOPRAZOLE 30 MG TAB.RAP.DR PO SCH (05:09)
[2020-12-28 06:40] VITALS: BP 126/77
--- NOTE | 2020-12-28 08:26 | PDOC ---
Exam Note: Edgar Note: This note is a late entry for 12/25/2020 covers elements not covered in my initial note. Subjective: The patient was reviewed at treatment team meeting individually in the morning on 12/25/2020 with Tejal De Leon, Cinda Gastelum, and Lori (healthcare social worker), Betty, activity therapy and Jacqueline CHIRINOS, discussed and reviewed the chart. The patient slept 7 hours previous night. Reviewed the patients history, diagnoses, overall functioning on the unit, current psychotropics and risk-benefit ratio. The patient was compliant with his medications. He remains on a thin liquid diet. He complains of nausea and vomiting, being monitored by Dr. Lino. He is somewhat obsessive regarding being wanting to drink excessive amount of fluids with his meds. He has been sexually inappropriate. We did check with Dr. Lino whether we could start Provera but given the fact that he is bed bound this may predispose to venous thrombus embolism and we will avoid it. Review of Systems: Ambulation impaired. No CV, , pulmonary, eye, ENT system symptoms on review. He complains of feeling thirsty, wanting fluids. Mental Status Exam: The patient is oriented to himself and situation. Speech is coherent, has some latency. Abstraction fair. Computation impaired. Language function intact. Attention span short. Mood and affect somewhat labile. No hallucinations noted. Laboratory Data: Reviewed. Impression: Bipolar disorder mixed with psychotic features. Anxiety disorder unspecified. Mild cognitive impairment. Plan: Continue current psychotropics from initial note. Valproic acid level is therapeutic at 81. Haldol has been increased to 5 mg b.i.d., Paxil adjusted to 20 mg a day, BuSpar 15 mg 3 times a day p.r.n. Adjust further as clinically indicated. Assessment: Vital Signs/I&O: Vital Signs Date Time Temp Pulse Resp B/P (MAP) Pulse Ox O2 Delivery O2 Flow Rate FiO2 12/28/20 06:40 98.2 63 20 126/77 (93) 98 12/27/20 12:42 Room Air 12/24/20 15:33 2.0 I & O 12/27/20 12/27/20 12/28/20 15:00 23:00 07:00 Intake Total 1140 ml 780 ml Balance 1140 ml 780 ml Labs: Laboratory Tests Test 12/27/20 11:27 12/27/20 16:00 12/27/20 16:32 12/27/20 16:45 Glucose (Fingerstick) 239 mg/dL (70-99) H 189 mg/dL (70-99) H White Blood Count 9.3 x10^3/uL (4.0-11.0) Red Blood Count 5.19 x10^6/uL (4.30-5.70) Hemoglobin 14.0 g/dL (13.0-17.5) Hematocrit 44.4 % (39.0-53.0) Mean Corpuscular Volume 86 fL (79-100) Mean Corpuscular Hemoglobin 27 pg (25-35) Mean Corpuscular Hemoglobin Concent 32 g/dL (31-37) Red Cell Distribution Width 16.5 % (11.5-14.5) H Platelet Count 152 x10^3/uL (140-400) Neutrophils (%) (Auto) 75 % (31-73) H Lymphocytes (%) (Auto) 16 % (24-48) L Monocytes (%) (Auto) 8 % (0-9) Eosinophils (%) (Auto) 2 % (0-3) Basophils (%) (Auto) 1 % (0-3) Neutrophils # (Auto) 7.0 x10^3uL (1.8-7.7) Lymphocytes # (Auto) 1.4 x10^3/uL (1.0-4.8) Monocytes # (Auto) 0.7 x10^3/uL (0.0-1.1) Eosinophils # (Auto) 0.1 x10^3/uL (0.0-0.7) Basophils # (Auto) 0.1 x10^3/uL (0.0-0.2) Sodium Level 139 mmol/L (136-145) Potassium Level 4.9 mmol/L (3.5-5.1) Chloride Level 106 mmol/L (98-107) Carbon Dioxide Level 24 mmol/L (21-32) Anion Gap 9 (6-14) Blood Urea Nitrogen 25 mg/dL (8-26) Creatinine 1.1 mg/dL (0.7-1.3) Estimated GFR (Cockcroft-Gault) 70.9 BUN/Creatinine Ratio 23 (6-20) H Glucose Level 220 mg/dL (70-99) H Calcium Level 9.4 mg/dL (8.5-10.1) Total Bilirubin 0.2 mg/dL (0.2-1.0) Aspartate Amino Transferase (AST) 7 U/L (15-37) L Alanine Aminotransferase (ALT) 15 U/L (16-63) L Alkaline Phosphatase 71 U/L (46-116) Total Protein 8.1 g/dL (6.4-8.2) Albumin 2.9 g/dL (3.4-5.0) L Albumin/Globulin Ratio 0.6 (1.0-1.7) L Urine Collection Type Unknown Urine Color Yellow Urine Clarity Clear Urine pH 8.5 Urine Specific [place] 1.015 Urine Protein 100 mg/dl (NEG-TRACE) Urine Glucose (UA) Neg mg/dL (NEG) Urine Ketones (Stick) Neg mg/dL (NEG) Urine Blood Large (NEG) Urine Nitrite Pos (NEG) Urine Bilirubin Neg (NEG) Urine Urobilinogen Dipstick 0.2 mg/dL (0.2 mg/dL) Urine Leukocyte Esterase Large (NEG) Urine RBC 6-10 /HPF (0-2) Urine WBC 11-20 /HPF (0-4) Urine Squamous Epithelial Cells None /LPF Urine Transitional Epithelial Cells Few /LPF Urine Bacteria Many /HPF (0-FEW) Test 12/27/20 19:01 12/28/20 07:49 Glucose (Fingerstick) 209 mg/dL (70-99) H 113 mg/dL (70-99) H Current Medications: Meds: Laboratory Tests Test 12/27/20 11:27 12/27/20 16:00 12/27/20 16:32 12/27/20 16:45 Glucose (Fingerstick) 239 mg/dL 189 mg/dL White Blood Count 9.3 x10^3/uL Red Blood Count 5.19 x10^6/uL Hemoglobin 14.0 g/dL Hematocrit 44.4 % Mean Corpuscular Volume 86 fL Mean Corpuscular Hemoglobin 27 pg Mean Corpuscular Hemoglobin Concent 32 g/dL Red Cell Distribution Width 16.5 % Platelet Count 152 x10^3/uL Neutrophils (%) (Auto) 75 % Lymphocytes (%) (Auto) 16 % Monocytes (%) (Auto) 8 % Eosinophils (%) (Auto) 2 % Basophils (%) (Auto) 1 % Neutrophils # (Auto) 7.0 x10^3uL Lymphocytes # (Auto) 1.4 x10^3/uL Monocytes # (Auto) 0.7 x10^3/uL Eosinophils # (Auto) 0.1 x10^3/uL Basophils # (Auto) 0.1 x10^3/uL Sodium Level 139 mmol/L Potassium Level 4.9 mmol/L Chloride Level 106 mmol/L Carbon Dioxide Level 24 mmol/L Anion Gap 9 Blood Urea Nitrogen 25 mg/dL Creatinine 1.1 mg/dL Estimated GFR (Cockcroft-Gault) 70.9 BUN/Creatinine Ratio 23 Glucose Level 220 mg/dL Calcium Level 9.4 mg/dL Total Bilirubin 0.2 mg/dL Aspartate Amino Transf (AST/SGOT) 7 U/L Alanine Aminotransferase (ALT/SGPT) 15 U/L Alkaline Phosphatase 71 U/L Total Protein 8.1 g/dL Albumin 2.9 g/dL Albumin/Globulin Ratio 0.6 Urine Collection Type Unknown Urine Color Yellow Urine Clarity Clear Urine pH 8.5 Urine Specific [place] 1.015 Urine Protein 100 mg/dl Urine Glucose (UA) Neg mg/dL Urine Ketones (Stick) Neg mg/dL Urine Blood Large Urine Nitrite Pos Urine Bilirubin Neg Urine Urobilinogen Dipstick 0.2 mg/dL Urine Leukocyte Esterase Large Urine RBC 6-10 /HPF Urine WBC 11-20 /HPF Urine Squamous Epithelial Cells None /LPF Urine Transitional Epithelial Cells Few /LPF Urine Bacteria Many /HPF Test 12/27/20 19:01 12/28/20 07:49 Glucose (Fingerstick) 209 mg/dL 113 mg/dL Current Medications Medications (Trade) Dose Ordered Sig/Melissa Route PRN Reason Start Time Stop Time Status Last Admin Dose Admin Acetaminophen (Tylenol) 650 mg PRN Q6HRS PRN PO MILD PAIN / TEMP > 100.3'F 12/10/20 20:15 12/27/20 17:30 Multi-Ingredient Ointment (Analgesic [place]) 1 yisel PRN QID PRN TP MUSCLE PAIN 12/10/20 20:15 Al Hydroxide/Mg Hydroxide (Mylanta Plus Xs) 15 ml PRN AFTMEALHC PRN PO DYSPEPSIA 12/10/20 20:15 Magnesium Hydroxide (Milk Of Magnesia) 2,400 mg PRN QHS PRN PO 1ST CHOICE CONSTIPATION 12/10/20 20:15 Acetaminophen (Tylenol) 650 mg PRN Q6HRS PRN PO pain or fever 12/10/20 20:45 UNV Baclofen (Lioresal) 10 mg TID PO 12/10/20 21:00 12/27/20 20:51 Bisacodyl (Dulcolax Tab) 5 mg PRN DAILY PRN PO 3RD CHOICE CONSTIPATION 12/10/20 20:45 Buspirone HCl (Buspar) 15 mg TID PO 12/10/20 21:00 12/27/20 20:51 Divalproex Sodium (Depakote Er) 250 mg TID PO 12/10/20 21:00 12/12/20 18:37 DC 12/12/20 14:01 Docusate Sodium (Colace) 100 mg BID PO 12/10/20 21:00 12/27/20 20:51 Famotidine (Pepcid) 20 mg HS PO 12/10/20 21:00 12/24/20 16:43 DC 12/23/20 20:35 Fentanyl (Duragesic 12mcg/ Hr) 1 patch Q3DAYS TD 12/12/20 09:00 12/27/20 08:30 Haloperidol (Haldol) 2 mg BID PO 12/10/20 21:00 12/19/20 18:33 DC 12/19/20 11:08 Sodium Biphosphate/ Sodium Phosphate (Fleet Adult) 133 ml PRN DAILY PRN RC 4TH CHOICE CONSTIPATION 12/10/20 20:45 12/16/20 06:24 Naloxegol (Movantik) 25 mg PRN DAILY PRN PO 2ND CHOICE CONSTIPATION 12/10/20 20:45 Paroxetine HCl (Paxil) 10 mg DAILY PO 12/11/20 09:00 12/18/20 11:40 DC 12/18/20 09:08 Polyethylene Glycol (miraLAX) 17 gm BID PO 12/10/20 21:00 12/27/20 20:52 Sennosides (Senna) 8.6 mg DAILY PO 12/11/20 09:00 12/27/20 08:26 Simvastatin (Zocor) 10 mg QHS PO 12/10/20 21:00 12/27/20 20:52 Tamsulosin HCl (Flomax) 0.4 mg DAILY PO 12/11/20 09:00 12/27/20 08:27 Insulin Human Lispro (HumaLOG) 10 units TIDWMEALS SQ 12/11/20 08:00 12/13/20 16:29 DC 12/13/20 12:31 Insulin Glargine (Lantus Syringe) 25 unit QHS SQ 12/10/20 21:00 12/27/20 20:54 Lactobacillus Rhamnosus (Culturelle) 1 cap BID PO 12/10/20 21:00 12/27/20 20:51 Multivitamins/ Calcium (Thera-M Plus) 1 tab DAILY PO 12/11/20 09:00 12/27/20 08:27 Paroxetine HCl (Paxil) 40 mg DAILY PO 12/11/20 09:00 12/18/20 11:40 DC 12/18/20 09:08 Divalproex Sodium (Depakote Sprinkles) 250 mg 0900,1400 PO 12/13/20 09:00 12/27/20 13:06 Divalproex Sodium (Depakote Sprinkles) 500 mg QHS PO 12/12/20 21:00 12/27/20 20:51 Insulin Human Lispro (HumaLOG) 5 units TIDWMEALS SQ 12/13/20 16:30 12/27/20 17:31 Ondansetron HCl (Zofran Odt) 4 mg PRN Q4HRS PRN PO NAUSEA/VOMITING 12/14/20 09:30 12/24/20 09:17 Methylnaltrexone [place] (Relistor) 12 mg ONCE ONCE SQ 12/14/20 16:00 12/14/20 16:01 DC 12/14/20 18:09 Olanzapine (ZyPREXA ZYDIS) 2.5 mg PRN Q2HRS PRN PO PSYCHOSIS 12/14/20 16:30 12/26/20 15:28 Lidocaine HCl (Glydo (Lidocaine) Jelly) 1 yisel 1X ONCE MM 12/15/20 16:15 12/15/20 16:16 DC 12/15/20 16:15 Nystatin (Nystop) 15 yisel STK-MED ONCE TP 12/16/20 02:29 12/16/20 02:30 DC Trimethoprim/ Sulfamethoxazole (Bactrim Ds) 1 tab BID PO 12/17/20 12:00 12/23/20 23:50 DC 12/23/20 20:35 Doxycycline Hyclate (Vibra-Tab) 100 mg BID PO 12/17/20 12:00 12/23/20 23:50 DC 12/23/20 20:34 Paroxetine HCl (Paxil) 30 mg DAILY PO 12/19/20 09:00 12/21/20 20:10 DC 12/21/20 09:42 Haloperidol (Haldol) 4 mg BID PO 12/19/20 21:00 12/22/20 20:19 DC 12/22/20 19:56 Atenolol (Tenormin) 50 mg DAILY PO 12/21/20 17:30 12/25/20 16:20 DC 12/24/20 12:37 Potassium Chloride (Klor-Con) 20 meq DAILY PO 12/21/20 18:50 12/27/20 08:26 Paroxetine HCl (Paxil) 20 mg DAILY PO 12/22/20 09:00 12/27/20 08:26 Haloperidol (Haldol) 5 mg BID PO 12/23/20 09:00 12/27/20 20:52 Metoclopramide HCl (Reglan) 5 mg TIDACHC PO 12/24/20 17:00 12/27/20 20:58 Lansoprazole (Prevacid) 30 mg DAILYAC PO 12/25/20 07:30 12/26/20 09:41 DC 12/26/20 09:39 Atenolol (Tenormin) 25 mg DAILY PO 12/26/20 09:00 12/26/20 08:22 Lansoprazole (Prevacid) 30 mg DAILY06 PO 12/27/20 06:00 12/28/20 05:09 Cefdinir (Omnicef) 300 mg BID PO 12/27/20 18:45 12/27/20 18:51 Cancel Cefdinir (Omnicef) 300 mg BID PO 12/27/20 21:00 01/03/21 22:00 12/27/20 20:52 Current Medications Medications (Trade) Dose Ordered Sig/Melissa Route PRN Reason Start Time Stop Time Status Last Admin Dose Admin Cefdinir (Omnicef) 300 mg BID PO 12/27/20 21:00 01/03/21 22:00 10/9/21 20:52 I have reviewed the current psychotropics carefully including drug interactions. Risk benefit ratio favors no change other than as noted in my dictated progress note. Diagnosis: Problems: (1) Schizoaffective disorder, bipolar type (2) Bipolar disorder, current episode mixed, severe, with psychotic features (3) Anxiety disorder, unspecified (4) Impulse control disorder, unspecified EDSON VILLANUEVA MD Dec 28, 2020 08:26
[2020-12-28] MEDS: INSULIN LISPRO 300 UNITS/3 ML VIAL. SQ SCH ×3 (09:00→17:28)
[2020-12-28] MEDS: LACTOBACILLUS RHAMNOSUS GG 1 CAPSULE. PO SCH ×2 (09:03→20:20)
[2020-12-28] MEDS: SENNOSIDES 8.6 MG TABLET PO SCH (09:03)
[2020-12-28] MEDS: DOCUSATE SODIUM 100 MG CAPSULE PO SCH ×2 (09:03→20:20)
[2020-12-28] MEDS: DIVALPROEX 125 MG CAP.SPRINK PO SCH ×3 (09:03→20:21)
[2020-12-28] MEDS: POLYETHYLENE GLYCOL 3350 17 GM PACKET. PO SCH ×2 (09:03→20:22)
[2020-12-28] MEDS: busPIRone 15 MG TABLET. PO SCH ×3 (09:03→20:20)
[2020-12-28] MEDS: CEFDINIR 300 MG CAPSULE PO SCH ×2 (09:03→20:20)
[2020-12-28] MEDS: TAMSULOSIN 0.4 MG CAP.ER.24H. PO SCH (09:03)
[2020-12-28] MEDS: ATENOLOL 50 MG TABLET PO SCH (09:04)
[2020-12-28] MEDS: MULTIVITAMIN with MINERAL TABLET. PO SCH (09:04)
[2020-12-28] MEDS: HALOPERIDOL 5 MG TABLET PO SCH ×2 (09:04→20:20)
[2020-12-28] MEDS: METOCLOPRAMIDE 5 MG TABLET PO SCH ×4 (09:04→20:20)
[2020-12-28] MEDS: PARoxetine 20 MG TABLET PO SCH (09:04)
[2020-12-28] MEDS: POTASSIUM CHLORIDE 20 MEQ TABLET.ER. PO SCH (09:04)
[2020-12-28] MEDS: BACLOFEN 10 MG TABLET PO SCH ×3 (09:04→20:20)
--- NOTE | 2020-12-28 11:04 | NUR ---
RN Day Shift Note: pt presents with tired mood/affect. pt was medication compliant. pts vitals are WNL. pt slept 7.5 hours last night. pt's insulin was withheld this am, with a blood sugar level of 113. pt is noted to spend time resting in his room. pt is able to make needs known to staff. pt is oriented to self and place. pt will yell out to staff periodically during the shift. will continue to monitor.
--- NOTE | 2020-12-28 14:12 | NUR ---
pt is noted to be spending time in the day room with peers and staff.
[2020-12-28 15:55] VITALS: BP 111/71
[2020-12-28] MEDS: SIMVASTATIN 10 MG TABLET PO SCH (20:20)
[2020-12-28] MEDS: INSULIN GLARGINE SYRINGE. SQ SCH (20:24)
--- NOTE | 2020-12-28 22:02 | PDOC ---
Exam Note: Edgar Note: Please also refer to the separate dictated note~for this date of service dictated separately.~Patient seen individually. Discussed the patient with Nursing staff reviewed the chart.~Reviewed interim history and current functioning. Reviewed vital signs,~Labs/ Radiology~and current medications noted below. Continue current treatment with the changes noted in the dictated addendum note Assessment: Vital Signs/I&O: Vital Signs Date Time Temp Pulse Resp B/P (MAP) Pulse Ox O2 Delivery O2 Flow Rate FiO2 12/28/20 15:55 97.1 71 18 111/71 (84) 99 12/27/20 12:42 Room Air 12/24/20 15:33 2.0 I & O 12/27/20 12/27/20 12/28/20 15:00 23:00 07:00 Intake Total 1140 ml 780 ml Balance 1140 ml 780 ml Labs: Laboratory Tests Test 12/28/20 07:49 12/28/20 11:50 12/28/20 17:04 12/28/20 19:17 Glucose (Fingerstick) 113 mg/dL (70-99) H 148 mg/dL (70-99) H 252 mg/dL (70-99) H 214 mg/dL (70-99) H Current Medications: Meds: Laboratory Tests Test 12/28/20 07:49 12/28/20 11:50 12/28/20 17:04 12/28/20 19:17 Glucose (Fingerstick) 113 mg/dL 148 mg/dL 252 mg/dL 214 mg/dL Current Medications Medications (Trade) Dose Ordered Sig/Melissa Route PRN Reason Start Time Stop Time Status Last Admin Dose Admin Acetaminophen (Tylenol) 650 mg PRN Q6HRS PRN PO MILD PAIN / TEMP > 100.3'F 12/10/20 20:15 12/27/20 17:30 Multi-Ingredient Ointment (Analgesic [place]) 1 yisel PRN QID PRN TP MUSCLE PAIN 12/10/20 20:15 Al Hydroxide/Mg Hydroxide (Mylanta Plus Xs) 15 ml PRN AFTMEALHC PRN PO DYSPEPSIA 12/10/20 20:15 Magnesium Hydroxide (Milk Of Magnesia) 2,400 mg PRN QHS PRN PO 1ST CHOICE CONSTIPATION 12/10/20 20:15 Acetaminophen (Tylenol) 650 mg PRN Q6HRS PRN PO pain or fever 12/10/20 20:45 UNV Baclofen (Lioresal) 10 mg TID PO 12/10/20 21:00 12/28/20 20:20 Bisacodyl (Dulcolax Tab) 5 mg PRN DAILY PRN PO 3RD CHOICE CONSTIPATION 12/10/20 20:45 Buspirone HCl (Buspar) 15 mg TID PO 12/10/20 21:00 12/28/20 20:20 Divalproex Sodium (Depakote Er) 250 mg TID PO 12/10/20 21:00 12/12/20 18:37 DC 12/12/20 14:01 Docusate Sodium (Colace) 100 mg BID PO 12/10/20 21:00 12/28/20 20:20 Famotidine (Pepcid) 20 mg HS PO 12/10/20 21:00 12/24/20 16:43 DC 12/23/20 20:35 Fentanyl (Duragesic 12mcg/ Hr) 1 patch Q3DAYS TD 12/12/20 09:00 12/27/20 08:30 Haloperidol (Haldol) 2 mg BID PO 12/10/20 21:00 12/19/20 18:33 DC 12/19/20 11:08 Sodium Biphosphate/ Sodium Phosphate (Fleet Adult) 133 ml PRN DAILY PRN RC 4TH CHOICE CONSTIPATION 12/10/20 20:45 12/16/20 06:24 Naloxegol (Movantik) 25 mg PRN DAILY PRN PO 2ND CHOICE CONSTIPATION 12/10/20 20:45 Paroxetine HCl (Paxil) 10 mg DAILY PO 12/11/20 09:00 12/18/20 11:40 DC 12/18/20 09:08 Polyethylene Glycol (miraLAX) 17 gm BID PO 12/10/20 21:00 12/28/20 09:03 Sennosides (Senna) 8.6 mg DAILY PO 12/11/20 09:00 12/28/20 09:03 Simvastatin (Zocor) 10 mg QHS PO 12/10/20 21:00 12/28/20 20:20 Tamsulosin HCl (Flomax) 0.4 mg DAILY PO 12/11/20 09:00 12/28/20 09:03 Insulin Human Lispro (HumaLOG) 10 units TIDWMEALS SQ 12/11/20 08:00 12/13/20 16:29 DC 12/13/20 12:31 Insulin Glargine (Lantus Syringe) 25 unit QHS SQ 12/10/20 21:00 12/28/20 20:24 Lactobacillus Rhamnosus (Culturelle) 1 cap BID PO 12/10/20 21:00 12/28/20 20:20 Multivitamins/ Calcium (Thera-M Plus) 1 tab DAILY PO 12/11/20 09:00 12/28/20 09:04 Paroxetine HCl (Paxil) 40 mg DAILY PO 12/11/20 09:00 12/18/20 11:40 DC 12/18/20 09:08 Divalproex Sodium (Depakote Sprinkles) 250 mg 0900,1400 PO 12/13/20 09:00 12/28/20 13:47 Divalproex Sodium (Depakote Sprinkles) 500 mg QHS PO 12/12/20 21:00 12/28/20 20:21 Insulin Human Lispro (HumaLOG) 5 units TIDWMEALS SQ 12/13/20 16:30 12/28/20 17:28 Ondansetron HCl (Zofran Odt) 4 mg PRN Q4HRS PRN PO NAUSEA/VOMITING 12/14/20 09:30 12/24/20 09:17 Methylnaltrexone [place] (Relistor) 12 mg ONCE ONCE SQ 12/14/20 16:00 12/14/20 16:01 DC 12/14/20 18:09 Olanzapine (ZyPREXA ZYDIS) 2.5 mg PRN Q2HRS PRN PO PSYCHOSIS 12/14/20 16:30 12/26/20 15:28 Lidocaine HCl (Glydo (Lidocaine) Jelly) 1 yisel 1X ONCE MM 12/15/20 16:15 12/15/20 16:16 DC 12/15/20 16:15 Nystatin (Nystop) 15 yisel STK-MED ONCE TP 12/16/20 02:29 12/16/20 02:30 DC Trimethoprim/ Sulfamethoxazole (Bactrim Ds) 1 tab BID PO 12/17/20 12:00 12/23/20 23:50 DC 12/23/20 20:35 Doxycycline Hyclate (Vibra-Tab) 100 mg BID PO 12/17/20 12:00 12/23/20 23:50 DC 12/23/20 20:34 Paroxetine HCl (Paxil) 30 mg DAILY PO 12/19/20 09:00 12/21/20 20:10 DC 12/21/20 09:42 Haloperidol (Haldol) 4 mg BID PO 12/19/20 21:00 12/22/20 20:19 DC 12/22/20 19:56 Atenolol (Tenormin) 50 mg DAILY PO 12/21/20 17:30 12/25/20 16:20 DC 12/24/20 12:37 Potassium Chloride (Klor-Con) 20 meq DAILY PO 12/21/20 18:50 12/28/20 09:04 Paroxetine HCl (Paxil) 20 mg DAILY PO 12/22/20 09:00 12/28/20 09:04 Haloperidol (Haldol) 5 mg BID PO 12/23/20 09:00 12/28/20 20:20 Metoclopramide HCl (Reglan) 5 mg TIDACHC PO 12/24/20 17:00 12/28/20 20:20 Lansoprazole (Prevacid) 30 mg DAILYAC PO 12/25/20 07:30 12/26/20 09:41 DC 12/26/20 09:39 Atenolol (Tenormin) 25 mg DAILY PO 12/26/20 09:00 12/28/20 09:04 Lansoprazole (Prevacid) 30 mg DAILY06 PO 12/27/20 06:00 12/28/20 05:09 Cefdinir (Omnicef) 300 mg BID PO 12/27/20 18:45 12/27/20 18:51 Cancel Cefdinir (Omnicef) 300 mg BID PO 12/27/20 21:00 01/03/21 22:00 12/28/20 20:20 I have reviewed the current psychotropics carefully including drug interactions. Risk benefit ratio favors no change other than as noted in my dictated progress note. Diagnosis: Problems: (1) Schizoaffective disorder, bipolar type (2) Impulse control disorder, unspecified (3) Anxiety disorder, unspecified (4) Bipolar disorder, current episode mixed, severe, with psychotic features EDSON VILLANUEVA MD Dec 28, 2020 22:02
--- NOTE | 2020-12-28 23:38 | NUR ---
Pt located in his bed this evening. Pt compliant with crushed medications. Yelling out intermittently. Pt very inappropriate during his bed bath. Pt talking about penises and oral sex with 2 female tight barrel inspector's. When asked why he was inappropriate to the 2 females, pt stated that Dr. Lino is inappropriate to him so he can be inappropriate to staff.
[2020-12-29 05:35] VITALS: BP 103/71
[2020-12-29] MEDS: LANSOPRAZOLE 30 MG TAB.RAP.DR PO SCH (05:47)
[2020-12-29] MEDS: ACETAMINOPHEN 325 MG TABLET PO PRN (06:17)
--- NOTE | 2020-12-29 07:05 | PDOC ---
Exam Note: Edgar Note: This note is a late entry for 12/27/2020 covers elements not covered in my initial note. Subjective: The patient was seen individually in the evening of 12/27/2020 with Jose Eduardo CHIRINOS, discussed and reviewed the chart. The patient slept 7-3/4 hours previous night. Patient has been rude, somewhat psychotic, paranoid previous night. Again talking about that he knows there is a serial killer and people need to be careful. He is somewhat obsessive about fluid intake and continues to ask me for this as I met with him in his room. He remains on mechanical soft diet and continent at times. UA has been repeated, reflex to culture. We will defer to Dr. Lino. He had some increased white cell counts. Chest x-ray is negative. CMP is unremarkable. He was agitated in the morning. Received Zyprexa p.r.n. Review of Systems: Ambulation impaired in wheelchair. No CV, , pulmonary, eye, ENT system symptoms on review. Mental Status Exam: The patient is oriented to himself and situation. Speech coherent. Abstraction fair. Computation impaired. Language function intact. Attention span short. Mood and affect somewhat labile, less sexually inappropriate. Laboratory Data: Reviewed. Impression: Bipolar disorder mixed with psychotic features. Anxiety disorder unspecified. Mild cognitive impairment. Plan: Continue rest of the psychotropics per initial note. We will defer medical management to Dr. Lino. Await urine C&S. Adjust further as clinically indicated. Assessment: Vital Signs/I&O: Vital Signs Date Time Temp Pulse Resp B/P (MAP) Pulse Ox O2 Delivery O2 Flow Rate FiO2 12/29/20 05:35 97.5 51 20 103/71 (82) 96 2.0 12/27/20 12:42 Room Air I & O 12/28/20 12/28/20 12/29/20 15:00 23:00 07:00 Intake Total 600 ml 780 ml Balance 600 ml 780 ml Labs: Laboratory Tests Test 12/28/20 07:49 12/28/20 11:50 12/28/20 17:04 12/28/20 19:17 Glucose (Fingerstick) 113 mg/dL (70-99) H 148 mg/dL (70-99) H 252 mg/dL (70-99) H 214 mg/dL (70-99) H Current Medications: Meds: Laboratory Tests Test 12/28/20 07:49 12/28/20 11:50 12/28/20 17:04 12/28/20 19:17 Glucose (Fingerstick) 113 mg/dL 148 mg/dL 252 mg/dL 214 mg/dL Current Medications Medications (Trade) Dose Ordered Sig/Melissa Route PRN Reason Start Time Stop Time Status Last Admin Dose Admin Acetaminophen (Tylenol) 650 mg PRN Q6HRS PRN PO MILD PAIN / TEMP > 100.3'F 12/10/20 20:15 12/29/20 06:17 Multi-Ingredient Ointment (Analgesic [place]) 1 yisel PRN QID PRN TP MUSCLE PAIN 12/10/20 20:15 Al Hydroxide/Mg Hydroxide (Mylanta Plus Xs) 15 ml PRN AFTMEALHC PRN PO DYSPEPSIA 12/10/20 20:15 Magnesium Hydroxide (Milk Of Magnesia) 2,400 mg PRN QHS PRN PO 1ST CHOICE CONSTIPATION 12/10/20 20:15 Acetaminophen (Tylenol) 650 mg PRN Q6HRS PRN PO pain or fever 12/10/20 20:45 UNV Baclofen (Lioresal) 10 mg TID PO 12/10/20 21:00 12/28/20 20:20 Bisacodyl (Dulcolax Tab) 5 mg PRN DAILY PRN PO 3RD CHOICE CONSTIPATION 12/10/20 20:45 Buspirone HCl (Buspar) 15 mg TID PO 12/10/20 21:00 12/28/20 20:20 Divalproex Sodium (Depakote Er) 250 mg TID PO 12/10/20 21:00 12/12/20 18:37 DC 12/12/20 14:01 Docusate Sodium (Colace) 100 mg BID PO 12/10/20 21:00 12/28/20 20:20 Famotidine (Pepcid) 20 mg HS PO 12/10/20 21:00 12/24/20 16:43 DC 12/23/20 20:35 Fentanyl (Duragesic 12mcg/ Hr) 1 patch Q3DAYS TD 12/12/20 09:00 12/27/20 08:30 Haloperidol (Haldol) 2 mg BID PO 12/10/20 21:00 12/19/20 18:33 DC 12/19/20 11:08 Sodium Biphosphate/ Sodium Phosphate (Fleet Adult) 133 ml PRN DAILY PRN RC 4TH CHOICE CONSTIPATION 12/10/20 20:45 12/16/20 06:24 Naloxegol (Movantik) 25 mg PRN DAILY PRN PO 2ND CHOICE CONSTIPATION 12/10/20 20:45 Paroxetine HCl (Paxil) 10 mg DAILY PO 12/11/20 09:00 12/18/20 11:40 DC 12/18/20 09:08 Polyethylene Glycol (miraLAX) 17 gm BID PO 12/10/20 21:00 12/28/20 09:03 Sennosides (Senna) 8.6 mg DAILY PO 12/11/20 09:00 12/28/20 09:03 Simvastatin (Zocor) 10 mg QHS PO 12/10/20 21:00 12/28/20 20:20 Tamsulosin HCl (Flomax) 0.4 mg DAILY PO 12/11/20 09:00 12/28/20 09:03 Insulin Human Lispro (HumaLOG) 10 units TIDWMEALS SQ 12/11/20 08:00 12/13/20 16:29 DC 12/13/20 12:31 Insulin Glargine (Lantus Syringe) 25 unit QHS SQ 12/10/20 21:00 12/28/20 20:24 Lactobacillus Rhamnosus (Culturelle) 1 cap BID PO 12/10/20 21:00 12/28/20 20:20 Multivitamins/ Calcium (Thera-M Plus) 1 tab DAILY PO 12/11/20 09:00 12/28/20 09:04 Paroxetine HCl (Paxil) 40 mg DAILY PO 12/11/20 09:00 12/18/20 11:40 DC 12/18/20 09:08 Divalproex Sodium (Depakote Sprinkles) 250 mg 0900,1400 PO 12/13/20 09:00 12/28/20 13:47 Divalproex Sodium (Depakote Sprinkles) 500 mg QHS PO 12/12/20 21:00 12/28/20 20:21 Insulin Human Lispro (HumaLOG) 5 units TIDWMEALS SQ 12/13/20 16:30 12/28/20 17:28 Ondansetron HCl (Zofran Odt) 4 mg PRN Q4HRS PRN PO NAUSEA/VOMITING 12/14/20 09:30 12/24/20 09:17 Methylnaltrexone [place] (Relistor) 12 mg ONCE ONCE SQ 12/14/20 16:00 12/14/20 16:01 DC 12/14/20 18:09 Olanzapine (ZyPREXA ZYDIS) 2.5 mg PRN Q2HRS PRN PO PSYCHOSIS 12/14/20 16:30 12/26/20 15:28 Lidocaine HCl (Glydo (Lidocaine) Jelly) 1 yisel 1X ONCE MM 12/15/20 16:15 12/15/20 16:16 DC 12/15/20 16:15 Nystatin (Nystop) 15 yisel STK-MED ONCE TP 12/16/20 02:29 12/16/20 02:30 DC Trimethoprim/ Sulfamethoxazole (Bactrim Ds) 1 tab BID PO 12/17/20 12:00 12/23/20 23:50 DC 12/23/20 20:35 Doxycycline Hyclate (Vibra-Tab) 100 mg BID PO 12/17/20 12:00 12/23/20 23:50 DC 12/23/20 20:34 Paroxetine HCl (Paxil) 30 mg DAILY PO 12/19/20 09:00 12/21/20 20:10 DC 12/21/20 09:42 Haloperidol (Haldol) 4 mg BID PO 12/19/20 21:00 12/22/20 20:19 DC 12/22/20 19:56 Atenolol (Tenormin) 50 mg DAILY PO 12/21/20 17:30 12/25/20 16:20 DC 12/24/20 12:37 Potassium Chloride (Klor-Con) 20 meq DAILY PO 12/21/20 18:50 12/28/20 09:04 Paroxetine HCl (Paxil) 20 mg DAILY PO 12/22/20 09:00 12/28/20 09:04 Haloperidol (Haldol) 5 mg BID PO 12/23/20 09:00 12/28/20 20:20 Metoclopramide HCl (Reglan) 5 mg TIDACHC PO 12/24/20 17:00 12/28/20 20:20 Lansoprazole (Prevacid) 30 mg DAILYAC PO 12/25/20 07:30 12/26/20 09:41 DC 12/26/20 09:39 Atenolol (Tenormin) 25 mg DAILY PO 12/26/20 09:00 12/28/20 09:04 Lansoprazole (Prevacid) 30 mg DAILY06 PO 12/27/20 06:00 12/29/20 05:47 Cefdinir (Omnicef) 300 mg BID PO 12/27/20 18:45 12/27/20 18:51 Cancel Cefdinir (Omnicef) 300 mg BID PO 12/27/20 21:00 01/03/21 22:00 12/28/20 20:20 I have reviewed the current psychotropics carefully including drug interactions. Risk benefit ratio favors no change other than as noted in my dictated progress note. Diagnosis: Problems: (1) Schizoaffective disorder, bipolar type (2) Impulse control disorder, unspecified (3) Anxiety disorder, unspecified (4) Bipolar disorder, current episode mixed, severe, with psychotic features EDSON VILLANUEVA MD Dec 29, 2020 07:05
--- NOTE | 2020-12-29 07:24 | PDOC ---
Exam Note: Edgar Note: This note is a late entry for 12/26/2020 covers elements not covered in my initial note. Subjective: The patient was seen individually in the evening of 12/26/2020 with Catrachita CHIRINOS, discussed and reviewed the chart. The patient slept 6-3/4 hours previous night. Patient has been in the wheelchair, came out of the dayroom, somewhat rude and irritable at times. He received Zyprexa at 3.30 p.m. He is somewhat delusional towards the evening hours per nursing report and he stated that he knew someone who is a mass murderer and everyone should be careful so that they dont get hurt. Review of Systems: Ambulation impaired in wheelchair. No CV, , pulmonary, eye, ENT system symptoms on review. Mental Status Exam: The patient is reasonably oriented. Speech coherent. Abstraction fair. Computation impaired. Language function intact. Attention span short. Mood and affect remains withdrawn. Laboratory Data: Reviewed. Impression: Bipolar disorder mixed with psychotic features. Anxiety disorder unspecified. Mild cognitive impairment. Plan: Continue current psychotropics. Assessment: Vital Signs/I&O: Vital Signs Date Time Temp Pulse Resp B/P (MAP) Pulse Ox O2 Delivery O2 Flow Rate FiO2 12/29/20 05:35 97.5 51 20 103/71 (82) 96 2.0 12/27/20 12:42 Room Air I & O 12/28/20 12/28/20 12/29/20 15:00 23:00 07:00 Intake Total 600 ml 780 ml Balance 600 ml 780 ml Labs: Laboratory Tests Test 12/28/20 07:49 12/28/20 11:50 12/28/20 17:04 12/28/20 19:17 Glucose (Fingerstick) 113 mg/dL (70-99) H 148 mg/dL (70-99) H 252 mg/dL (70-99) H 214 mg/dL (70-99) H Current Medications: Meds: Laboratory Tests Test 12/28/20 07:49 12/28/20 11:50 12/28/20 17:04 12/28/20 19:17 Glucose (Fingerstick) 113 mg/dL 148 mg/dL 252 mg/dL 214 mg/dL Current Medications Medications (Trade) Dose Ordered Sig/Melissa Route PRN Reason Start Time Stop Time Status Last Admin Dose Admin Acetaminophen (Tylenol) 650 mg PRN Q6HRS PRN PO MILD PAIN / TEMP > 100.3'F 12/10/20 20:15 12/29/20 06:17 Multi-Ingredient Ointment (Analgesic [place]) 1 yisel PRN QID PRN TP MUSCLE PAIN 12/10/20 20:15 Al Hydroxide/Mg Hydroxide (Mylanta Plus Xs) 15 ml PRN AFTMEALHC PRN PO DYSPEPSIA 12/10/20 20:15 Magnesium Hydroxide (Milk Of Magnesia) 2,400 mg PRN QHS PRN PO 1ST CHOICE CONSTIPATION 12/10/20 20:15 Acetaminophen (Tylenol) 650 mg PRN Q6HRS PRN PO pain or fever 12/10/20 20:45 UNV Baclofen (Lioresal) 10 mg TID PO 12/10/20 21:00 12/28/20 20:20 Bisacodyl (Dulcolax Tab) 5 mg PRN DAILY PRN PO 3RD CHOICE CONSTIPATION 12/10/20 20:45 Buspirone HCl (Buspar) 15 mg TID PO 12/10/20 21:00 12/28/20 20:20 Divalproex Sodium (Depakote Er) 250 mg TID PO 12/10/20 21:00 12/12/20 18:37 DC 12/12/20 14:01 Docusate Sodium (Colace) 100 mg BID PO 12/10/20 21:00 12/28/20 20:20 Famotidine (Pepcid) 20 mg HS PO 12/10/20 21:00 12/24/20 16:43 DC 12/23/20 20:35 Fentanyl (Duragesic 12mcg/ Hr) 1 patch Q3DAYS TD 12/12/20 09:00 12/27/20 08:30 Haloperidol (Haldol) 2 mg BID PO 12/10/20 21:00 12/19/20 18:33 DC 12/19/20 11:08 Sodium Biphosphate/ Sodium Phosphate (Fleet Adult) 133 ml PRN DAILY PRN RC 4TH CHOICE CONSTIPATION 12/10/20 20:45 12/16/20 06:24 Naloxegol (Movantik) 25 mg PRN DAILY PRN PO 2ND CHOICE CONSTIPATION 12/10/20 20:45 Paroxetine HCl (Paxil) 10 mg DAILY PO 12/11/20 09:00 12/18/20 11:40 DC 12/18/20 09:08 Polyethylene Glycol (miraLAX) 17 gm BID PO 12/10/20 21:00 12/28/20 09:03 Sennosides (Senna) 8.6 mg DAILY PO 12/11/20 09:00 12/28/20 09:03 Simvastatin (Zocor) 10 mg QHS PO 12/10/20 21:00 12/28/20 20:20 Tamsulosin HCl (Flomax) 0.4 mg DAILY PO 12/11/20 09:00 12/28/20 09:03 Insulin Human Lispro (HumaLOG) 10 units TIDWMEALS SQ 12/11/20 08:00 12/13/20 16:29 DC 12/13/20 12:31 Insulin Glargine (Lantus Syringe) 25 unit QHS SQ 12/10/20 21:00 12/28/20 20:24 Lactobacillus Rhamnosus (Culturelle) 1 cap BID PO 12/10/20 21:00 12/28/20 20:20 Multivitamins/ Calcium (Thera-M Plus) 1 tab DAILY PO 12/11/20 09:00 12/28/20 09:04 Paroxetine HCl (Paxil) 40 mg DAILY PO 12/11/20 09:00 12/18/20 11:40 DC 12/18/20 09:08 Divalproex Sodium (Depakote Sprinkles) 250 mg 0900,1400 PO 12/13/20 09:00 12/28/20 13:47 Divalproex Sodium (Depakote Sprinkles) 500 mg QHS PO 12/12/20 21:00 12/28/20 20:21 Insulin Human Lispro (HumaLOG) 5 units TIDWMEALS SQ 12/13/20 16:30 12/28/20 17:28 Ondansetron HCl (Zofran Odt) 4 mg PRN Q4HRS PRN PO NAUSEA/VOMITING 12/14/20 09:30 12/24/20 09:17 Methylnaltrexone [place] (Relistor) 12 mg ONCE ONCE SQ 12/14/20 16:00 12/14/20 16:01 DC 12/14/20 18:09 Olanzapine (ZyPREXA ZYDIS) 2.5 mg PRN Q2HRS PRN PO PSYCHOSIS 12/14/20 16:30 12/26/20 15:28 Lidocaine HCl (Glydo (Lidocaine) Jelly) 1 yisel 1X ONCE MM 12/15/20 16:15 12/15/20 16:16 DC 12/15/20 16:15 Nystatin (Nystop) 15 yisel STK-MED ONCE TP 12/16/20 02:29 12/16/20 02:30 DC Trimethoprim/ Sulfamethoxazole (Bactrim Ds) 1 tab BID PO 12/17/20 12:00 12/23/20 23:50 DC 12/23/20 20:35 Doxycycline Hyclate (Vibra-Tab) 100 mg BID PO 12/17/20 12:00 12/23/20 23:50 DC 12/23/20 20:34 Paroxetine HCl (Paxil) 30 mg DAILY PO 12/19/20 09:00 12/21/20 20:10 DC 12/21/20 09:42 Haloperidol (Haldol) 4 mg BID PO 12/19/20 21:00 12/22/20 20:19 DC 12/22/20 19:56 Atenolol (Tenormin) 50 mg DAILY PO 12/21/20 17:30 12/25/20 16:20 DC 12/24/20 12:37 Potassium Chloride (Klor-Con) 20 meq DAILY PO 12/21/20 18:50 12/28/20 09:04 Paroxetine HCl (Paxil) 20 mg DAILY PO 12/22/20 09:00 12/28/20 09:04 Haloperidol (Haldol) 5 mg BID PO 12/23/20 09:00 12/28/20 20:20 Metoclopramide HCl (Reglan) 5 mg TIDACHC PO 12/24/20 17:00 12/28/20 20:20 Lansoprazole (Prevacid) 30 mg DAILYAC PO 12/25/20 07:30 12/26/20 09:41 DC 12/26/20 09:39 Atenolol (Tenormin) 25 mg DAILY PO 12/26/20 09:00 12/28/20 09:04 Lansoprazole (Prevacid) 30 mg DAILY06 PO 12/27/20 06:00 12/29/20 05:47 Cefdinir (Omnicef) 300 mg BID PO 12/27/20 18:45 12/27/20 18:51 Cancel Cefdinir (Omnicef) 300 mg BID PO 12/27/20 21:00 01/03/21 22:00 12/28/20 20:20 I have reviewed the current psychotropics carefully including drug interactions. Risk benefit ratio favors no change other than as noted in my dictated progress note. Diagnosis: Problems: (1) Impulse control disorder, unspecified (2) Anxiety disorder, unspecified (3) Bipolar disorder, current episode mixed, severe, with psychotic features (4) Mild cognitive impairment EDSON VILLANUEVA MD Dec 29, 2020 07:24
--- NOTE | 2020-12-29 07:26 | PDOC ---
Exam Note: Edgar Note: This note is a late entry for 12/28/2020 covers elements not covered in my initial note. Subjective: The patient was seen individually in the evening of 12/28/2020 with Annie CHIRINOS, discussed and reviewed the chart. The patient slept 7-1/2 hours previous night. Patient has been yelling, agitated, obsessive about fluid intake, somewhat anxious and repetitive as I met with him in his room. Review of Systems: Ambulation impaired in wheelchair. No CV, , pulmonary, eye, ENT system symptoms on review. Mental Status Exam: The patient is oriented to himself and situation. Speech has some latency, coherent. Abstraction fair. Computation impaired. Language function intact. Attention span short. Mood and affect somewhat labile. Laboratory Data: Reviewed. Impression: Bipolar disorder mixed with psychotic features. Anxiety disorder unspecified. Mild cognitive impairment. Plan: Continue rest of the psychotropics per initial note. Assessment: Vital Signs/I&O: Vital Signs Date Time Temp Pulse Resp B/P (MAP) Pulse Ox O2 Delivery O2 Flow Rate FiO2 12/29/20 05:35 97.5 51 20 103/71 (82) 96 2.0 12/27/20 12:42 Room Air I & O 12/28/20 12/28/20 12/29/20 15:00 23:00 07:00 Intake Total 600 ml 780 ml Balance 600 ml 780 ml Labs: Laboratory Tests Test 12/28/20 07:49 12/28/20 11:50 12/28/20 17:04 12/28/20 19:17 Glucose (Fingerstick) 113 mg/dL (70-99) H 148 mg/dL (70-99) H 252 mg/dL (70-99) H 214 mg/dL (70-99) H Current Medications: Meds: Laboratory Tests Test 12/28/20 07:49 12/28/20 11:50 12/28/20 17:04 12/28/20 19:17 Glucose (Fingerstick) 113 mg/dL 148 mg/dL 252 mg/dL 214 mg/dL Current Medications Medications (Trade) Dose Ordered Sig/Melissa Route PRN Reason Start Time Stop Time Status Last Admin Dose Admin Acetaminophen (Tylenol) 650 mg PRN Q6HRS PRN PO MILD PAIN / TEMP > 100.3'F 12/10/20 20:15 12/29/20 06:17 Multi-Ingredient Ointment (Analgesic [place]) 1 yisel PRN QID PRN TP MUSCLE PAIN 12/10/20 20:15 Al Hydroxide/Mg Hydroxide (Mylanta Plus Xs) 15 ml PRN AFTMEALHC PRN PO DYSPEPSIA 12/10/20 20:15 Magnesium Hydroxide (Milk Of Magnesia) 2,400 mg PRN QHS PRN PO 1ST CHOICE CONSTIPATION 12/10/20 20:15 Acetaminophen (Tylenol) 650 mg PRN Q6HRS PRN PO pain or fever 12/10/20 20:45 UNV Baclofen (Lioresal) 10 mg TID PO 12/10/20 21:00 12/28/20 20:20 Bisacodyl (Dulcolax Tab) 5 mg PRN DAILY PRN PO 3RD CHOICE CONSTIPATION 12/10/20 20:45 Buspirone HCl (Buspar) 15 mg TID PO 12/10/20 21:00 12/28/20 20:20 Divalproex Sodium (Depakote Er) 250 mg TID PO 12/10/20 21:00 12/12/20 18:37 DC 12/12/20 14:01 Docusate Sodium (Colace) 100 mg BID PO 12/10/20 21:00 12/28/20 20:20 Famotidine (Pepcid) 20 mg HS PO 12/10/20 21:00 12/24/20 16:43 DC 12/23/20 20:35 Fentanyl (Duragesic 12mcg/ Hr) 1 patch Q3DAYS TD 12/12/20 09:00 12/27/20 08:30 Haloperidol (Haldol) 2 mg BID PO 12/10/20 21:00 12/19/20 18:33 DC 12/19/20 11:08 Sodium Biphosphate/ Sodium Phosphate (Fleet Adult) 133 ml PRN DAILY PRN RC 4TH CHOICE CONSTIPATION 12/10/20 20:45 12/16/20 06:24 Naloxegol (Movantik) 25 mg PRN DAILY PRN PO 2ND CHOICE CONSTIPATION 12/10/20 20:45 Paroxetine HCl (Paxil) 10 mg DAILY PO 12/11/20 09:00 12/18/20 11:40 DC 12/18/20 09:08 Polyethylene Glycol (miraLAX) 17 gm BID PO 12/10/20 21:00 12/28/20 09:03 Sennosides (Senna) 8.6 mg DAILY PO 12/11/20 09:00 12/28/20 09:03 Simvastatin (Zocor) 10 mg QHS PO 12/10/20 21:00 12/28/20 20:20 Tamsulosin HCl (Flomax) 0.4 mg DAILY PO 12/11/20 09:00 12/28/20 09:03 Insulin Human Lispro (HumaLOG) 10 units TIDWMEALS SQ 12/11/20 08:00 12/13/20 16:29 DC 12/13/20 12:31 Insulin Glargine (Lantus Syringe) 25 unit QHS SQ 12/10/20 21:00 12/28/20 20:24 Lactobacillus Rhamnosus (Culturelle) 1 cap BID PO 12/10/20 21:00 12/28/20 20:20 Multivitamins/ Calcium (Thera-M Plus) 1 tab DAILY PO 12/11/20 09:00 12/28/20 09:04 Paroxetine HCl (Paxil) 40 mg DAILY PO 12/11/20 09:00 12/18/20 11:40 DC 12/18/20 09:08 Divalproex Sodium (Depakote Sprinkles) 250 mg 0900,1400 PO 12/13/20 09:00 12/28/20 13:47 Divalproex Sodium (Depakote Sprinkles) 500 mg QHS PO 12/12/20 21:00 12/28/20 20:21 Insulin Human Lispro (HumaLOG) 5 units TIDWMEALS SQ 12/13/20 16:30 12/28/20 17:28 Ondansetron HCl (Zofran Odt) 4 mg PRN Q4HRS PRN PO NAUSEA/VOMITING 12/14/20 09:30 12/24/20 09:17 Methylnaltrexone [place] (Relistor) 12 mg ONCE ONCE SQ 12/14/20 16:00 12/14/20 16:01 DC 12/14/20 18:09 Olanzapine (ZyPREXA ZYDIS) 2.5 mg PRN Q2HRS PRN PO PSYCHOSIS 12/14/20 16:30 12/26/20 15:28 Lidocaine HCl (Glydo (Lidocaine) Jelly) 1 yisel 1X ONCE MM 12/15/20 16:15 12/15/20 16:16 DC 12/15/20 16:15 Nystatin (Nystop) 15 yisel STK-MED ONCE TP 12/16/20 02:29 12/16/20 02:30 DC Trimethoprim/ Sulfamethoxazole (Bactrim Ds) 1 tab BID PO 12/17/20 12:00 12/23/20 23:50 DC 12/23/20 20:35 Doxycycline Hyclate (Vibra-Tab) 100 mg BID PO 12/17/20 12:00 12/23/20 23:50 DC 12/23/20 20:34 Paroxetine HCl (Paxil) 30 mg DAILY PO 12/19/20 09:00 12/21/20 20:10 DC 12/21/20 09:42 Haloperidol (Haldol) 4 mg BID PO 12/19/20 21:00 12/22/20 20:19 DC 12/22/20 19:56 Atenolol (Tenormin) 50 mg DAILY PO 12/21/20 17:30 12/25/20 16:20 DC 12/24/20 12:37 Potassium Chloride (Klor-Con) 20 meq DAILY PO 12/21/20 18:50 12/28/20 09:04 Paroxetine HCl (Paxil) 20 mg DAILY PO 12/22/20 09:00 12/28/20 09:04 Haloperidol (Haldol) 5 mg BID PO 12/23/20 09:00 12/28/20 20:20 Metoclopramide HCl (Reglan) 5 mg TIDACHC PO 12/24/20 17:00 12/28/20 20:20 Lansoprazole (Prevacid) 30 mg DAILYAC PO 12/25/20 07:30 12/26/20 09:41 DC 12/26/20 09:39 Atenolol (Tenormin) 25 mg DAILY PO 12/26/20 09:00 12/28/20 09:04 Lansoprazole (Prevacid) 30 mg DAILY06 PO 12/27/20 06:00 12/29/20 05:47 Cefdinir (Omnicef) 300 mg BID PO 12/27/20 18:45 10/9/21 18:51 Cancel Cefdinir (Omnicef) 300 mg BID PO 12/27/20 21:00 01/03/21 22:00 12/28/20 20:20 I have reviewed the current psychotropics carefully including drug interactions. Risk benefit ratio favors no change other than as noted in my dictated progress note. Diagnosis: Problems: (1) Impulse control disorder, unspecified (2) Anxiety disorder, unspecified (3) Bipolar disorder, current episode mixed, severe, with psychotic features (4) Mild cognitive impairment EDSON VILLANUEVA MD Dec 29, 2020 07:26
[2020-12-29] MEDS: POLYETHYLENE GLYCOL 3350 17 GM PACKET. PO SCH ×2 (08:46→20:41)
[2020-12-29] MEDS: INSULIN LISPRO 300 UNITS/3 ML VIAL. SQ SCH ×3 (08:51→17:19)
[2020-12-29] MEDS: DIVALPROEX 125 MG CAP.SPRINK PO SCH ×3 (08:52→20:41)
[2020-12-29] MEDS: PARoxetine 20 MG TABLET PO SCH (08:52)
[2020-12-29] MEDS: DOCUSATE SODIUM 100 MG CAPSULE PO SCH ×2 (08:52→20:41)
[2020-12-29] MEDS: METOCLOPRAMIDE 5 MG TABLET PO SCH ×4 (08:52→20:41)
[2020-12-29] MEDS: MULTIVITAMIN with MINERAL TABLET. PO SCH (08:53)
[2020-12-29] MEDS: HALOPERIDOL 5 MG TABLET PO SCH ×2 (08:53→20:41)
[2020-12-29] MEDS: BACLOFEN 10 MG TABLET PO SCH ×3 (08:53→20:41)
[2020-12-29] MEDS: ATENOLOL 50 MG TABLET PO SCH (08:53)
[2020-12-29] MEDS: busPIRone 15 MG TABLET. PO SCH ×3 (08:53→20:41)
[2020-12-29] MEDS: CEFDINIR 300 MG CAPSULE PO SCH ×2 (08:53→20:41)
[2020-12-29] MEDS: POTASSIUM CHLORIDE 20 MEQ TABLET.ER. PO SCH (08:54)
[2020-12-29] MEDS: TAMSULOSIN 0.4 MG CAP.ER.24H. PO SCH (08:54)
[2020-12-29] MEDS: SENNOSIDES 8.6 MG TABLET PO SCH (08:54)
[2020-12-29] MEDS: LACTOBACILLUS RHAMNOSUS GG 1 CAPSULE. PO SCH ×2 (08:54→20:41)
--- NOTE | 2020-12-29 14:36 | NUR ---
Nursing note: Patient in dinning room for medications and assessment. Compliant taking medications crushed and floated whole in pudding. He yells out intermittently. He is A/O X3, demanding as well as acting helpless. He is capable of using a urinal independently when he feels like it. Patient chair bound r/t contractures, requires Joi lift assist. He reports 10/10 left foot pain, this nurse repositioned him, he voiced relief. Continues on nectar thick liquids, able to eat independently with setup assist. No inappropriate conversations noted at this time. Patient is currently in bed resting. Will continue to monitor.
[2020-12-29 15:37] VITALS: BP 114/71
[2020-12-29] MEDS: SIMVASTATIN 10 MG TABLET PO SCH (20:41)
[2020-12-29] MEDS: INSULIN GLARGINE SYRINGE. SQ SCH (21:24)
--- NOTE | 2020-12-29 21:50 | PDOC ---
Exam Note: Edgar Note: Please also refer to the separate dictated note~for this date of service dictated separately.~Patient seen individually. Discussed the patient with Nursing staff reviewed the chart.~Reviewed interim history and current functioning. Reviewed vital signs,~Labs/ Radiology~and current medications noted below. Continue current treatment with the changes noted in the dictated addendum note Assessment: Vital Signs/I&O: Vital Signs Date Time Temp Pulse Resp B/P (MAP) Pulse Ox O2 Delivery O2 Flow Rate FiO2 12/29/20 15:37 97.8 63 18 114/71 (85) 98 2.0 12/27/20 12:42 Room Air I & O 12/28/20 12/28/20 12/29/20 14:59 22:59 06:59 Intake Total 600 ml 780 ml Balance 600 ml 780 ml Labs: Laboratory Tests Test 12/29/20 05:45 12/29/20 07:55 12/29/20 11:46 12/29/20 16:40 SARS-CoV-2 (PCR) Not detected (NOT DETECTD) Glucose (Fingerstick) 115 mg/dL (70-99) H 96 mg/dL (70-99) 195 mg/dL (70-99) H Test 12/29/20 19:00 Glucose (Fingerstick) 168 mg/dL (70-99) H Current Medications: Meds: Laboratory Tests Test 12/29/20 05:45 12/29/20 07:55 12/29/20 11:46 12/29/20 16:40 Coronavirus (COVID-19)(PCR) Not detected Glucose (Fingerstick) 115 mg/dL 96 mg/dL 195 mg/dL Test 12/29/20 19:00 Glucose (Fingerstick) 168 mg/dL Current Medications Medications (Trade) Dose Ordered Sig/Melissa Route PRN Reason Start Time Stop Time Status Last Admin Dose Admin Acetaminophen (Tylenol) 650 mg PRN Q6HRS PRN PO MILD PAIN / TEMP > 100.3'F 12/10/20 20:15 12/29/20 06:17 Multi-Ingredient Ointment (Analgesic [place]) 1 yisel PRN QID PRN TP MUSCLE PAIN 12/10/20 20:15 Al Hydroxide/Mg Hydroxide (Mylanta Plus Xs) 15 ml PRN AFTMEALHC PRN PO DYSPEPSIA 12/10/20 20:15 Magnesium Hydroxide (Milk Of Magnesia) 2,400 mg PRN QHS PRN PO 1ST CHOICE CONSTIPATION 12/10/20 20:15 Acetaminophen (Tylenol) 650 mg PRN Q6HRS PRN PO pain or fever 12/10/20 20:45 UNV Baclofen (Lioresal) 10 mg TID PO 12/10/20 21:00 12/29/20 20:41 Bisacodyl (Dulcolax Tab) 5 mg PRN DAILY PRN PO 3RD CHOICE CONSTIPATION 12/10/20 20:45 Buspirone HCl (Buspar) 15 mg TID PO 12/10/20 21:00 12/29/20 20:41 Divalproex Sodium (Depakote Er) 250 mg TID PO 12/10/20 21:00 12/12/20 18:37 DC 12/12/20 14:01 Docusate Sodium (Colace) 100 mg BID PO 12/10/20 21:00 12/29/20 20:41 Famotidine (Pepcid) 20 mg HS PO 12/10/20 21:00 12/24/20 16:43 DC 12/23/20 20:35 Fentanyl (Duragesic 12mcg/ Hr) 1 patch Q3DAYS TD 12/12/20 09:00 12/27/20 08:30 Haloperidol (Haldol) 2 mg BID PO 12/10/20 21:00 12/19/20 18:33 DC 12/19/20 11:08 Sodium Biphosphate/ Sodium Phosphate (Fleet Adult) 133 ml PRN DAILY PRN RC 4TH CHOICE CONSTIPATION 12/10/20 20:45 12/16/20 06:24 Naloxegol (Movantik) 25 mg PRN DAILY PRN PO 2ND CHOICE CONSTIPATION 12/10/20 20:45 Paroxetine HCl (Paxil) 10 mg DAILY PO 12/11/20 09:00 12/18/20 11:40 DC 12/18/20 09:08 Polyethylene Glycol (miraLAX) 17 gm BID PO 12/10/20 21:00 12/29/20 20:41 Sennosides (Senna) 8.6 mg DAILY PO 12/11/20 09:00 12/29/20 08:54 Simvastatin (Zocor) 10 mg QHS PO 12/10/20 21:00 12/29/20 20:41 Tamsulosin HCl (Flomax) 0.4 mg DAILY PO 12/11/20 09:00 12/29/20 08:54 Insulin Human Lispro (HumaLOG) 10 units TIDWMEALS SQ 12/11/20 08:00 12/13/20 16:29 DC 12/13/20 12:31 Insulin Glargine (Lantus Syringe) 25 unit QHS SQ 12/10/20 21:00 12/29/20 21:24 Lactobacillus Rhamnosus (Culturelle) 1 cap BID PO 12/10/20 21:00 12/29/20 20:41 Multivitamins/ Calcium (Thera-M Plus) 1 tab DAILY PO 12/11/20 09:00 12/29/20 08:53 Paroxetine HCl (Paxil) 40 mg DAILY PO 12/11/20 09:00 12/18/20 11:40 DC 12/18/20 09:08 Divalproex Sodium (Depakote Sprinkles) 250 mg 0900,1400 PO 12/13/20 09:00 12/29/20 14:25 Divalproex Sodium (Depakote Sprinkles) 500 mg QHS PO 12/12/20 21:00 12/29/20 20:41 Insulin Human Lispro (HumaLOG) 5 units TIDWMEALS SQ 12/13/20 16:30 12/29/20 17:19 Ondansetron HCl (Zofran Odt) 4 mg PRN Q4HRS PRN PO NAUSEA/VOMITING 12/14/20 09:30 12/24/20 09:17 Methylnaltrexone [place] (Relistor) 12 mg ONCE ONCE SQ 12/14/20 16:00 12/14/20 16:01 DC 12/14/20 18:09 Olanzapine (ZyPREXA ZYDIS) 2.5 mg PRN Q2HRS PRN PO PSYCHOSIS 12/14/20 16:30 12/26/20 15:28 Lidocaine HCl (Glydo (Lidocaine) Jelly) 1 yisel 1X ONCE MM 12/15/20 16:15 12/15/20 16:16 DC 12/15/20 16:15 Nystatin (Nystop) 15 yisel STK-MED ONCE TP 12/16/20 02:29 12/16/20 02:30 DC Trimethoprim/ Sulfamethoxazole (Bactrim Ds) 1 tab BID PO 12/17/20 12:00 12/23/20 23:50 DC 12/23/20 20:35 Doxycycline Hyclate (Vibra-Tab) 100 mg BID PO 12/17/20 12:00 12/23/20 23:50 DC 12/23/20 20:34 Paroxetine HCl (Paxil) 30 mg DAILY PO 12/19/20 09:00 12/21/20 20:10 DC 12/21/20 09:42 Haloperidol (Haldol) 4 mg BID PO 12/19/20 21:00 12/22/20 20:19 DC 12/22/20 19:56 Atenolol (Tenormin) 50 mg DAILY PO 12/21/20 17:30 12/25/20 16:20 DC 12/24/20 12:37 Potassium Chloride (Klor-Con) 20 meq DAILY PO 12/21/20 18:50 12/29/20 08:54 Paroxetine HCl (Paxil) 20 mg DAILY PO 12/22/20 09:00 12/29/20 08:52 Haloperidol (Haldol) 5 mg BID PO 12/23/20 09:00 12/29/20 20:41 Metoclopramide HCl (Reglan) 5 mg TIDACHC PO 12/24/20 17:00 12/29/20 20:41 Lansoprazole (Prevacid) 30 mg DAILYAC PO 12/25/20 07:30 12/26/20 09:41 DC 12/26/20 09:39 Atenolol (Tenormin) 25 mg DAILY PO 12/26/20 09:00 12/29/20 08:53 Lansoprazole (Prevacid) 30 mg DAILY06 PO 12/27/20 06:00 12/29/20 05:47 Cefdinir (Omnicef) 300 mg BID PO 12/27/20 18:45 12/27/20 18:51 Cancel Cefdinir (Omnicef) 300 mg BID PO 12/27/20 21:00 01/03/21 22:00 12/29/20 20:41 I have reviewed the current psychotropics carefully including drug interactions. Risk benefit ratio favors no change other than as noted in my dictated progress note. Diagnosis: Problems: (1) Schizoaffective disorder, bipolar type (2) Impulse control disorder, unspecified (3) Anxiety disorder, unspecified (4) Bipolar disorder, current episode mixed, severe, with psychotic features (5) Mild cognitive impairment EDSON VILLANUEVA MD Dec 29, 2020 21:50
--- NOTE | 2020-12-29 23:00 | NUR ---
Pt located in his room this evening. Pt yelling out, very attention seeking. Pt witnessed masturbating by Dr. Leon when doing rounds. Compliant with HS medications.
[2020-12-30] MEDS: LANSOPRAZOLE 30 MG TAB.RAP.DR PO SCH (05:52)
[2020-12-30 06:20] VITALS: BP 110/72
[2020-12-30] MEDS: INSULIN LISPRO 300 UNITS/3 ML VIAL. SQ SCH ×3 (08:00→17:51)
[2020-12-30] MEDS: fentaNYL 12MCG/HR 1 PATCH PATCH TD SCH (08:47)
[2020-12-30] MEDS: POLYETHYLENE GLYCOL 3350 17 GM PACKET. PO SCH ×2 (08:49→19:57)
[2020-12-30] MEDS: BACLOFEN 10 MG TABLET PO SCH ×3 (08:51→19:56)
[2020-12-30] MEDS: LACTOBACILLUS RHAMNOSUS GG 1 CAPSULE. PO SCH ×2 (08:52→19:56)
[2020-12-30] MEDS: POTASSIUM CHLORIDE 20 MEQ TABLET.ER. PO SCH (08:52)
[2020-12-30] MEDS: SENNOSIDES 8.6 MG TABLET PO SCH (08:52)
[2020-12-30] MEDS: DIVALPROEX 125 MG CAP.SPRINK PO SCH ×3 (08:52→19:57)
[2020-12-30] MEDS: busPIRone 10 MG TABLET. PO SCH (08:52)
[2020-12-30] MEDS: DOCUSATE SODIUM 100 MG CAPSULE PO SCH ×2 (08:52→19:56)
[2020-12-30] MEDS: HALOPERIDOL 5 MG TABLET PO SCH ×2 (08:52→19:56)
[2020-12-30] MEDS: MULTIVITAMIN with MINERAL TABLET. PO SCH (08:52)
[2020-12-30] MEDS: PARoxetine 20 MG TABLET PO SCH (08:52)
[2020-12-30] MEDS: TAMSULOSIN 0.4 MG CAP.ER.24H. PO SCH (08:52)
[2020-12-30] MEDS: CEFDINIR 300 MG CAPSULE PO SCH ×2 (08:53→19:56)
[2020-12-30] MEDS: ATENOLOL 50 MG TABLET PO SCH (08:53)
[2020-12-30] MEDS: METOCLOPRAMIDE 5 MG TABLET PO SCH ×4 (08:53→19:56)
[2020-12-30] MEDS: busPIRone 15 MG TABLET. PO SCH ×2 (15:09→19:57)
--- NOTE | 2020-12-30 15:43 | NUR ---
DANIELLE attempted to contact Terrence and ended up leaving a message for her to contact DANIELLE when possible.
[2020-12-30 15:45] VITALS: BP 101/73
--- NOTE | 2020-12-30 15:47 | NUR ---
DANIELLE received call back from DANIELLE Tubbs at [facility], to discuss pt discharge plans to return to them on . Terrence will set up transport up through [facility] and one of their staff will have to come and get his w/c. DANIELLE and Terrence discussed pt progress and mentioned that quite a bit of it is behavioral (his neediness and inability to complete tasks), when he is more than capable of doing things for himself. However, pt sexualized behaviors have decreased as has his delusions and grandiosity.
--- NOTE | 2020-12-30 15:48 | NUR ---
Nursing note: Patient in dinning room for medications and assessment. Compliant taking medications crushed and floated whole in pudding. He yells out intermittently, had penis exposed when this nurse went into room. He is A/O X3, demanding as well as acting helpless. He is capable of using a urinal independently when he feels like it. Patient chair bound r/t contractures, requires Joi lift assist. He reports 10/10 bilateral foot pain, this nurse repositioned him, he voiced relief. Continues on nectar thick liquids, able to eat independently with setup assist. Patient is currently in bed resting. Will continue to monitor.
[2020-12-30 16:28] VITALS: BP 101/73
[2020-12-30] MEDS: SIMVASTATIN 10 MG TABLET PO SCH (19:56)
[2020-12-30] MEDS: INSULIN GLARGINE SYRINGE. SQ SCH (21:26)
--- NOTE | 2020-12-30 21:50 | PDOC ---
Exam Note: Edgar Note: Please also refer to the separate dictated note~for this date of service dictated separately.~Patient seen individually. Discussed the patient with Nursing staff reviewed the chart.~Reviewed interim history and current functioning. Reviewed vital signs,~Labs/ Radiology~and current medications noted below. Continue current treatment with the changes noted in the dictated addendum note Assessment: Vital Signs/I&O: Vital Signs Date Time Temp Pulse Resp B/P (MAP) Pulse Ox O2 Delivery O2 Flow Rate FiO2 12/30/20 16:28 97.6 60 17 101/73 (82) 95 12/29/20 15:37 2.0 12/27/20 12:42 Room Air I & O 12/29/20 12/29/20 12/30/20 15:00 23:00 07:00 Intake Total 1140 ml 580 ml Balance 1140 ml 580 ml Labs: Laboratory Tests Test 12/30/20 07:24 12/30/20 11:45 12/30/20 17:34 12/30/20 19:09 Glucose (Fingerstick) 115 mg/dL (70-99) H 197 mg/dL (70-99) H 202 mg/dL (70-99) H 94 mg/dL (70-99) Current Medications: Meds: Laboratory Tests Test 12/30/20 07:24 12/30/20 11:45 12/30/20 17:34 12/30/20 19:09 Glucose (Fingerstick) 115 mg/dL 197 mg/dL 202 mg/dL 94 mg/dL Current Medications Medications (Trade) Dose Ordered Sig/Melissa Route PRN Reason Start Time Stop Time Status Last Admin Dose Admin Acetaminophen (Tylenol) 650 mg PRN Q6HRS PRN PO MILD PAIN / TEMP > 100.3'F 12/10/20 20:15 12/29/20 06:17 Multi-Ingredient Ointment (Analgesic [place]) 1 yisel PRN QID PRN TP MUSCLE PAIN 12/10/20 20:15 Al Hydroxide/Mg Hydroxide (Mylanta Plus Xs) 15 ml PRN AFTMEALHC PRN PO DYSPEPSIA 12/10/20 20:15 Magnesium Hydroxide (Milk Of Magnesia) 2,400 mg PRN QHS PRN PO 1ST CHOICE CONSTIPATION 12/10/20 20:15 Acetaminophen (Tylenol) 650 mg PRN Q6HRS PRN PO pain or fever 12/10/20 20:45 UNV Baclofen (Lioresal) 10 mg TID PO 12/10/20 21:00 12/30/20 19:56 Bisacodyl (Dulcolax Tab) 5 mg PRN DAILY PRN PO 3RD CHOICE CONSTIPATION 12/10/20 20:45 Buspirone HCl (Buspar) 15 mg TID PO 12/10/20 21:00 12/30/20 05:03 DC 12/29/20 20:41 Divalproex Sodium (Depakote Er) 250 mg TID PO 12/10/20 21:00 12/12/20 18:37 DC 12/12/20 14:01 Docusate Sodium (Colace) 100 mg BID PO 12/10/20 21:00 12/30/20 19:56 Famotidine (Pepcid) 20 mg HS PO 12/10/20 21:00 12/24/20 16:43 DC 12/23/20 20:35 Fentanyl (Duragesic 12mcg/ Hr) 1 patch Q3DAYS TD 12/12/20 09:00 12/30/20 08:47 Haloperidol (Haldol) 2 mg BID PO 12/10/20 21:00 12/19/20 18:33 DC 12/19/20 11:08 Sodium Biphosphate/ Sodium Phosphate (Fleet Adult) 133 ml PRN DAILY PRN RC 4TH CHOICE CONSTIPATION 12/10/20 20:45 12/16/20 06:24 Naloxegol (Movantik) 25 mg PRN DAILY PRN PO 2ND CHOICE CONSTIPATION 12/10/20 20:45 Paroxetine HCl (Paxil) 10 mg DAILY PO 12/11/20 09:00 12/18/20 11:40 DC 12/18/20 09:08 Polyethylene Glycol (miraLAX) 17 gm BID PO 12/10/20 21:00 12/30/20 19:57 Sennosides (Senna) 8.6 mg DAILY PO 12/11/20 09:00 12/30/20 08:52 Simvastatin (Zocor) 10 mg QHS PO 12/10/20 21:00 12/30/20 19:56 Tamsulosin HCl (Flomax) 0.4 mg DAILY PO 12/11/20 09:00 12/30/20 08:52 Insulin Human Lispro (HumaLOG) 10 units TIDWMEALS SQ 12/11/20 08:00 12/13/20 16:29 DC 12/13/20 12:31 Insulin Glargine (Lantus Syringe) 25 unit QHS SQ 12/10/20 21:00 12/30/20 16:32 DC 12/29/20 21:24 Lactobacillus Rhamnosus (Culturelle) 1 cap BID PO 12/10/20 21:00 12/30/20 19:56 Multivitamins/ Calcium (Thera-M Plus) 1 tab DAILY PO 12/11/20 09:00 12/30/20 08:52 Paroxetine HCl (Paxil) 40 mg DAILY PO 12/11/20 09:00 12/18/20 11:40 DC 12/18/20 09:08 Divalproex Sodium (Depakote Sprinkles) 250 mg 0900,1400 PO 12/13/20 09:00 12/30/20 13:32 Divalproex Sodium (Depakote Sprinkles) 500 mg QHS PO 12/12/20 21:00 12/30/20 19:57 Insulin Human Lispro (HumaLOG) 5 units TIDWMEALS SQ 12/13/20 16:30 12/30/20 16:32 DC 12/30/20 12:25 Ondansetron HCl (Zofran Odt) 4 mg PRN Q4HRS PRN PO NAUSEA/VOMITING 12/14/20 09:30 12/24/20 09:17 Methylnaltrexone [place] (Relistor) 12 mg ONCE ONCE SQ 12/14/20 16:00 12/14/20 16:01 DC 12/14/20 18:09 Olanzapine (ZyPREXA ZYDIS) 2.5 mg PRN Q2HRS PRN PO PSYCHOSIS 12/14/20 16:30 12/26/20 15:28 Lidocaine HCl (Glydo (Lidocaine) Jelly) 1 yisel 1X ONCE MM 12/15/20 16:15 12/15/20 16:16 DC 12/15/20 16:15 Nystatin (Nystop) 15 yisel STK-MED ONCE TP 12/16/20 02:29 12/16/20 02:30 DC Trimethoprim/ Sulfamethoxazole (Bactrim Ds) 1 tab BID PO 12/17/20 12:00 12/23/20 23:50 DC 12/23/20 20:35 Doxycycline Hyclate (Vibra-Tab) 100 mg BID PO 12/17/20 12:00 12/23/20 23:50 DC 12/23/20 20:34 Paroxetine HCl (Paxil) 30 mg DAILY PO 12/19/20 09:00 12/21/20 20:10 DC 12/21/20 09:42 Haloperidol (Haldol) 4 mg BID PO 12/19/20 21:00 12/22/20 20:19 DC 12/22/20 19:56 Atenolol (Tenormin) 50 mg DAILY PO 12/21/20 17:30 12/25/20 16:20 DC 12/24/20 12:37 Potassium Chloride (Klor-Con) 20 meq DAILY PO 12/21/20 18:50 12/30/20 08:52 Paroxetine HCl (Paxil) 20 mg DAILY PO 12/22/20 09:00 12/30/20 08:52 Haloperidol (Haldol) 5 mg BID PO 12/23/20 09:00 12/30/20 19:56 Metoclopramide HCl (Reglan) 5 mg TIDACHC PO 12/24/20 17:00 12/30/20 19:56 Lansoprazole (Prevacid) 30 mg DAILYAC PO 12/25/20 07:30 12/26/20 09:41 DC 12/26/20 09:39 Atenolol (Tenormin) 25 mg DAILY PO 12/26/20 09:00 12/30/20 08:53 Lansoprazole (Prevacid) 30 mg DAILY06 PO 12/27/20 06:00 12/30/20 05:52 Cefdinir (Omnicef) 300 mg BID PO 12/27/20 18:45 12/27/20 18:51 Cancel Cefdinir (Omnicef) 300 mg BID PO 12/27/20 21:00 01/03/21 22:00 12/30/20 19:56 Buspirone HCl (Buspar) 15 mg BID@1400,2100 PO 12/30/20 14:00 12/30/20 19:57 Buspirone HCl (Buspar) 25 mg DAILY PO 12/30/20 09:00 12/30/20 08:52 Insulin Glargine (Lantus Syringe) 15 unit QHS SQ 12/30/20 21:00 12/30/20 21:26 Insulin Human Lispro (HumaLOG) 3 units TIDWMEALS SQ 12/30/20 17:00 12/30/20 17:51 Current Medications Medications (Trade) Dose Ordered Sig/Melissa Route PRN Reason Start Time Stop Time Status Last Admin Dose Admin Buspirone HCl (Buspar) 15 mg BID@1400,2100 PO 12/30/20 14:00 12/30/20 19:57 Buspirone HCl (Buspar) 25 mg DAILY PO 12/30/20 09:00 12/30/20 08:52 Insulin Glargine (Lantus Syringe) 15 unit QHS SQ 12/30/20 21:00 12/30/20 21:26 Insulin Human Lispro (HumaLOG) 3 units TIDWMEALS SQ 12/30/20 17:00 12/30/20 17:51 I have reviewed the current psychotropics carefully including drug interactions. Risk benefit ratio favors no change other than as noted in my dictated progress note. Diagnosis: Problems: (1) Schizoaffective disorder, bipolar type (2) Impulse control disorder, unspecified (3) Anxiety disorder, unspecified (4) Bipolar disorder, current episode mixed, severe, with psychotic features (5) Mild cognitive impairment EDSON VILLANUEVA MD Dec 30, 2020 21:50
--- NOTE | 2020-12-30 22:38 | NUR ---
Pt located in his room this evening. Pt appears calmer this evening and is not yelling out as much as previous evenings. Compliant with HS medications.
[2020-12-31] MEDS: LANSOPRAZOLE 30 MG TAB.RAP.DR PO SCH (05:36)
[2020-12-31 05:40] VITALS: BP 138/83
[2020-12-31] MEDS: POTASSIUM CHLORIDE 20 MEQ TABLET.ER. PO SCH (08:12)
[2020-12-31] MEDS: DIVALPROEX 125 MG CAP.SPRINK PO SCH ×3 (08:13→21:06)
[2020-12-31] MEDS: TAMSULOSIN 0.4 MG CAP.ER.24H. PO SCH (08:13)
[2020-12-31] MEDS: MULTIVITAMIN with MINERAL TABLET. PO SCH (08:13)
[2020-12-31] MEDS: ATENOLOL 50 MG TABLET PO SCH (08:13)
[2020-12-31] MEDS: busPIRone 10 MG TABLET. PO SCH (08:13)
[2020-12-31] MEDS: HALOPERIDOL 5 MG TABLET PO SCH ×2 (08:14→21:07)
[2020-12-31] MEDS: LACTOBACILLUS RHAMNOSUS GG 1 CAPSULE. PO SCH ×2 (08:14→21:07)
[2020-12-31] MEDS: PARoxetine 20 MG TABLET PO SCH (08:14)
[2020-12-31] MEDS: SENNOSIDES 8.6 MG TABLET PO SCH (08:14)
[2020-12-31] MEDS: CEFDINIR 300 MG CAPSULE PO SCH ×2 (08:14→21:07)
[2020-12-31] MEDS: DOCUSATE SODIUM 100 MG CAPSULE PO SCH ×2 (08:14→21:07)
[2020-12-31] MEDS: BACLOFEN 10 MG TABLET PO SCH ×3 (08:14→21:07)
[2020-12-31] MEDS: METOCLOPRAMIDE 5 MG TABLET PO SCH ×4 (08:14→21:07)
--- NOTE | 2020-12-31 08:15 | PDOC ---
Exam Note: Edgar Note: This note is a late entry for 12/29/2020 covers elements not covered in my initial note. Subjective: The patient was seen individually in the evening of 12/29/2020 with Megan CHIRINOS, discussed and reviewed the chart. The patient slept 5-1/2 hours previous night. Patient was sexually inappropriate previous night, masturbating as I met with him in his room. He remains somewhat impulsive but reasonably oriented. Review of Systems: Ambulation impaired in wheelchair. No CV, , pulmonary, eye, ENT system symptoms on review. Mental Status Exam: The patient is oriented to himself and situation. Speech has some latency, coherent. Abstraction fair. Computation impaired. Language function intact. Attention span short. Mood and affect somewhat labile. Laboratory Data: Reviewed. Impression: Bipolar disorder mixed with psychotic features. Anxiety disorder unspecified. Mild cognitive impairment. Plan: The patient is currently on BuSpar 15 mg t.i.d. We will increase to 25 mg in the morning and 15 mg twice a day. Rest of the psychotropics unchanged. Assessment: Vital Signs/I&O: Vital Signs Date Time Temp Pulse Resp B/P (MAP) Pulse Ox O2 Delivery O2 Flow Rate FiO2 12/31/20 05:40 96.9 56 22 138/83 (101) 97 12/29/20 15:37 2.0 12/27/20 12:42 Room Air I & O 12/30/20 12/30/20 12/31/20 15:00 23:00 07:00 Intake Total 480 ml 560 ml Balance 480 ml 560 ml Labs: Laboratory Tests Test 12/30/20 11:45 12/30/20 17:34 12/30/20 19:09 12/31/20 07:32 Glucose (Fingerstick) 197 mg/dL (70-99) H 202 mg/dL (70-99) H 94 mg/dL (70-99) 140 mg/dL (70-99) H Current Medications: Meds: Laboratory Tests Test 12/30/20 11:45 12/30/20 17:34 12/30/20 19:09 12/31/20 07:32 Glucose (Fingerstick) 197 mg/dL 202 mg/dL 94 mg/dL 140 mg/dL Current Medications Medications (Trade) Dose Ordered Sig/Melissa Route PRN Reason Start Time Stop Time Status Last Admin Dose Admin Acetaminophen (Tylenol) 650 mg PRN Q6HRS PRN PO MILD PAIN / TEMP > 100.3'F 12/10/20 20:15 12/29/20 06:17 Multi-Ingredient Ointment (Analgesic [place]) 1 yisel PRN QID PRN TP MUSCLE PAIN 12/10/20 20:15 Al Hydroxide/Mg Hydroxide (Mylanta Plus Xs) 15 ml PRN AFTMEALHC PRN PO DYSPEPSIA 12/10/20 20:15 Magnesium Hydroxide (Milk Of Magnesia) 2,400 mg PRN QHS PRN PO 1ST CHOICE CONSTIPATION 12/10/20 20:15 Acetaminophen (Tylenol) 650 mg PRN Q6HRS PRN PO pain or fever 12/10/20 20:45 UNV Baclofen (Lioresal) 10 mg TID PO 12/10/20 21:00 12/30/20 19:56 Bisacodyl (Dulcolax Tab) 5 mg PRN DAILY PRN PO 3RD CHOICE CONSTIPATION 12/10/20 20:45 Buspirone HCl (Buspar) 15 mg TID PO 12/10/20 21:00 12/30/20 05:03 DC 12/29/20 20:41 Divalproex Sodium (Depakote Er) 250 mg TID PO 12/10/20 21:00 12/12/20 18:37 DC 12/12/20 14:01 Docusate Sodium (Colace) 100 mg BID PO 12/10/20 21:00 12/30/20 19:56 Famotidine (Pepcid) 20 mg HS PO 12/10/20 21:00 12/24/20 16:43 DC 12/23/20 20:35 Fentanyl (Duragesic 12mcg/ Hr) 1 patch Q3DAYS TD 12/12/20 09:00 12/30/20 08:47 Haloperidol (Haldol) 2 mg BID PO 12/10/20 21:00 12/19/20 18:33 DC 12/19/20 11:08 Sodium Biphosphate/ Sodium Phosphate (Fleet Adult) 133 ml PRN DAILY PRN RC 4TH CHOICE CONSTIPATION 12/10/20 20:45 12/16/20 06:24 Naloxegol (Movantik) 25 mg PRN DAILY PRN PO 2ND CHOICE CONSTIPATION 12/10/20 20:45 Paroxetine HCl (Paxil) 10 mg DAILY PO 12/11/20 09:00 12/18/20 11:40 DC 12/18/20 09:08 Polyethylene Glycol (miraLAX) 17 gm BID PO 12/10/20 21:00 12/30/20 19:57 Sennosides (Senna) 8.6 mg DAILY PO 12/11/20 09:00 12/30/20 08:52 Simvastatin (Zocor) 10 mg QHS PO 12/10/20 21:00 12/30/20 19:56 Tamsulosin HCl (Flomax) 0.4 mg DAILY PO 12/11/20 09:00 12/30/20 08:52 Insulin Human Lispro (HumaLOG) 10 units TIDWMEALS SQ 12/11/20 08:00 12/13/20 16:29 DC 12/13/20 12:31 Insulin Glargine (Lantus Syringe) 25 unit QHS SQ 12/10/20 21:00 12/30/20 16:32 DC 12/29/20 21:24 Lactobacillus Rhamnosus (Culturelle) 1 cap BID PO 12/10/20 21:00 12/30/20 19:56 Multivitamins/ Calcium (Thera-M Plus) 1 tab DAILY PO 12/11/20 09:00 12/30/20 08:52 Paroxetine HCl (Paxil) 40 mg DAILY PO 12/11/20 09:00 12/18/20 11:40 DC 12/18/20 09:08 Divalproex Sodium (Depakote Sprinkles) 250 mg 0900,1400 PO 12/13/20 09:00 12/30/20 13:32 Divalproex Sodium (Depakote Sprinkles) 500 mg QHS PO 12/12/20 21:00 12/30/20 19:57 Insulin Human Lispro (HumaLOG) 5 units TIDWMEALS SQ 12/13/20 16:30 12/30/20 16:32 DC 12/30/20 12:25 Ondansetron HCl (Zofran Odt) 4 mg PRN Q4HRS PRN PO NAUSEA/VOMITING 12/14/20 09:30 12/24/20 09:17 Methylnaltrexone [place] (Relistor) 12 mg ONCE ONCE SQ 12/14/20 16:00 12/14/20 16:01 DC 12/14/20 18:09 Olanzapine (ZyPREXA ZYDIS) 2.5 mg PRN Q2HRS PRN PO PSYCHOSIS 12/14/20 16:30 12/26/20 15:28 Lidocaine HCl (Glydo (Lidocaine) Jelly) 1 yisel 1X ONCE MM 12/15/20 16:15 12/15/20 16:16 DC 12/15/20 16:15 Nystatin (Nystop) 15 yisel STK-MED ONCE TP 12/16/20 02:29 12/16/20 02:30 DC Trimethoprim/ Sulfamethoxazole (Bactrim Ds) 1 tab BID PO 12/17/20 12:00 12/23/20 23:50 DC 12/23/20 20:35 Doxycycline Hyclate (Vibra-Tab) 100 mg BID PO 12/17/20 12:00 12/23/20 23:50 DC 12/23/20 20:34 Paroxetine HCl (Paxil) 30 mg DAILY PO 12/19/20 09:00 12/21/20 20:10 DC 12/21/20 09:42 Haloperidol (Haldol) 4 mg BID PO 12/19/20 21:00 12/22/20 20:19 DC 12/22/20 19:56 Atenolol (Tenormin) 50 mg DAILY PO 12/21/20 17:30 12/25/20 16:20 DC 12/24/20 12:37 Potassium Chloride (Klor-Con) 20 meq DAILY PO 12/21/20 18:50 12/30/20 08:52 Paroxetine HCl (Paxil) 20 mg DAILY PO 12/22/20 09:00 12/30/20 08:52 Haloperidol (Haldol) 5 mg BID PO 12/23/20 09:00 12/30/20 19:56 Metoclopramide HCl (Reglan) 5 mg TIDACHC PO 12/24/20 17:00 12/30/20 19:56 Lansoprazole (Prevacid) 30 mg DAILYAC PO 12/25/20 07:30 12/26/20 09:41 DC 12/26/20 09:39 Atenolol (Tenormin) 25 mg DAILY PO 12/26/20 09:00 12/30/20 08:53 Lansoprazole (Prevacid) 30 mg DAILY06 PO 12/27/20 06:00 12/31/20 05:36 Cefdinir (Omnicef) 300 mg BID PO 12/27/20 18:45 12/27/20 18:51 Cancel Cefdinir (Omnicef) 300 mg BID PO 12/27/20 21:00 01/03/21 22:00 12/30/20 19:56 Buspirone HCl (Buspar) 15 mg BID@1400,2100 PO 12/30/20 14:00 12/30/20 19:57 Buspirone HCl (Buspar) 25 mg DAILY PO 12/30/20 09:00 12/30/20 08:52 Insulin Glargine (Lantus Syringe) 15 unit QHS SQ 12/30/20 21:00 12/30/20 21:26 Insulin Human Lispro (HumaLOG) 3 units TIDWMEALS SQ 12/30/20 17:00 12/30/20 17:51 Current Medications Medications (Trade) Dose Ordered Sig/Melissa Route PRN Reason Start Time Stop Time Status Last Admin Dose Admin Buspirone HCl (Buspar) 15 mg BID@1400,2100 PO 12/30/20 14:00 12/30/20 19:57 Buspirone HCl (Buspar) 25 mg DAILY PO 12/30/20 09:00 12/30/20 08:52 Insulin Glargine (Lantus Syringe) 15 unit QHS SQ 12/30/20 21:00 12/30/20 21:26 Insulin Human Lispro (HumaLOG) 3 units TIDWMEALS SQ 12/30/20 17:00 12/30/20 17:51 I have reviewed the current psychotropics carefully including drug interactions. Risk benefit ratio favors no change other than as noted in my dictated progress note. Diagnosis: Problems: (1) Schizoaffective disorder, bipolar type (2) Impulse control disorder, unspecified (3) Anxiety disorder, unspecified (4) Bipolar disorder, current episode mixed, severe, with psychotic features (5) Mild cognitive impairment EDSON VILLANUEVA MD Dec 31, 2020 08:15
[2020-12-31] MEDS: POLYETHYLENE GLYCOL 3350 17 GM PACKET. PO SCH ×2 (08:17→21:06)
[2020-12-31] MEDS: INSULIN LISPRO 300 UNITS/3 ML VIAL. SQ SCH ×3 (08:20→17:20)
--- NOTE | 2020-12-31 08:34 | PDOC ---
Exam Note: Edgar Note: This note is a late entry for 12/29/2020 covers elements not covered in my initial note. Subjective: The patient was seen individually in the evening of 12/29/2020 with Stephen CHIRINOS, discussed and reviewed the chart. The patient slept 8 hours previous night. She is compliant with medications. I met with her in her room. She continues to state that staff at the nursing staff were not accurate when they described some of the behaviors prompting this referral. She is not putting herself on the floor. Review of Systems: Ambulation impaired in wheelchair. No CV, , pulmonary, eye system symptoms on review. Mental Status Exam: The patient is oriented to herself and situation. Speech c oherent. Abstraction fair. Computation impaired. Language function intact. Mood and affect remains somewhat anxious. Laboratory Data: Reviewed. Impression: Bipolar 1 disorder, mixed with psychotic features. Anxiety disorder unspecified. Impulse control disorder unspecified. Mild cognitive impairment. Plan: Continue current psychotropics from initial note. Assessment: Vital Signs/I&O: Vital Signs Date Time Temp Pulse Resp B/P (MAP) Pulse Ox O2 Delivery O2 Flow Rate FiO2 12/31/20 08:13 56 138/83 12/31/20 05:40 96.9 22 97 12/29/20 15:37 2.0 12/27/20 12:42 Room Air I & O 12/30/20 12/30/20 12/31/20 15:00 23:00 07:00 Intake Total 480 ml 560 ml Balance 480 ml 560 ml Labs: Laboratory Tests Test 12/30/20 11:45 12/30/20 17:34 12/30/20 19:09 12/31/20 07:32 Glucose (Fingerstick) 197 mg/dL (70-99) H 202 mg/dL (70-99) H 94 mg/dL (70-99) 140 mg/dL (70-99) H Current Medications: Meds: Laboratory Tests Test 12/30/20 11:45 12/30/20 17:34 12/30/20 19:09 12/31/20 07:32 Glucose (Fingerstick) 197 mg/dL 202 mg/dL 94 mg/dL 140 mg/dL Current Medications Medications (Trade) Dose Ordered Sig/Melissa Route PRN Reason Start Time Stop Time Status Last Admin Dose Admin Acetaminophen (Tylenol) 650 mg PRN Q6HRS PRN PO MILD PAIN / TEMP > 100.3'F 12/10/20 20:15 12/29/20 06:17 Multi-Ingredient Ointment (Analgesic [place]) 1 yisel PRN QID PRN TP MUSCLE PAIN 12/10/20 20:15 Al Hydroxide/Mg Hydroxide (Mylanta Plus Xs) 15 ml PRN AFTMEALHC PRN PO DYSPEPSIA 12/10/20 20:15 Magnesium Hydroxide (Milk Of Magnesia) 2,400 mg PRN QHS PRN PO 1ST CHOICE CONSTIPATION 12/10/20 20:15 Acetaminophen (Tylenol) 650 mg PRN Q6HRS PRN PO pain or fever 12/10/20 20:45 UNV Baclofen (Lioresal) 10 mg TID PO 12/10/20 21:00 12/31/20 08:14 Bisacodyl (Dulcolax Tab) 5 mg PRN DAILY PRN PO 3RD CHOICE CONSTIPATION 12/10/20 20:45 Buspirone HCl (Buspar) 15 mg TID PO 12/10/20 21:00 12/30/20 05:03 DC 12/29/20 20:41 Divalproex Sodium (Depakote Er) 250 mg TID PO 12/10/20 21:00 12/12/20 18:37 DC 12/12/20 14:01 Docusate Sodium (Colace) 100 mg BID PO 12/10/20 21:00 12/31/20 08:14 Famotidine (Pepcid) 20 mg HS PO 12/10/20 21:00 12/24/20 16:43 DC 12/23/20 20:35 Fentanyl (Duragesic 12mcg/ Hr) 1 patch Q3DAYS TD 12/12/20 09:00 12/30/20 08:47 Haloperidol (Haldol) 2 mg BID PO 12/10/20 21:00 12/19/20 18:33 DC 12/19/20 11:08 Sodium Biphosphate/ Sodium Phosphate (Fleet Adult) 133 ml PRN DAILY PRN RC 4TH CHOICE CONSTIPATION 12/10/20 20:45 12/16/20 06:24 Naloxegol (Movantik) 25 mg PRN DAILY PRN PO 2ND CHOICE CONSTIPATION 12/10/20 20:45 Paroxetine HCl (Paxil) 10 mg DAILY PO 12/11/20 09:00 12/18/20 11:40 DC 12/18/20 09:08 Polyethylene Glycol (miraLAX) 17 gm BID PO 12/10/20 21:00 12/30/20 19:57 Sennosides (Senna) 8.6 mg DAILY PO 12/11/20 09:00 12/31/20 08:14 Simvastatin (Zocor) 10 mg QHS PO 12/10/20 21:00 12/30/20 19:56 Tamsulosin HCl (Flomax) 0.4 mg DAILY PO 12/11/20 09:00 12/31/20 08:13 Insulin Human Lispro (HumaLOG) 10 units TIDWMEALS SQ 12/11/20 08:00 12/13/20 16:29 DC 12/13/20 12:31 Insulin Glargine (Lantus Syringe) 25 unit QHS SQ 12/10/20 21:00 12/30/20 16:32 DC 12/29/20 21:24 Lactobacillus Rhamnosus (Culturelle) 1 cap BID PO 12/10/20 21:00 12/31/20 08:14 Multivitamins/ Calcium (Thera-M Plus) 1 tab DAILY PO 12/11/20 09:00 12/31/20 08:13 Paroxetine HCl (Paxil) 40 mg DAILY PO 12/11/20 09:00 12/18/20 11:40 DC 12/18/20 09:08 Divalproex Sodium (Depakote Sprinkles) 250 mg 0900,1400 PO 12/13/20 09:00 12/31/20 08:13 Divalproex Sodium (Depakote Sprinkles) 500 mg QHS PO 12/12/20 21:00 12/30/20 19:57 Insulin Human Lispro (HumaLOG) 5 units TIDWMEALS SQ 12/13/20 16:30 12/30/20 16:32 DC 12/30/20 12:25 Ondansetron HCl (Zofran Odt) 4 mg PRN Q4HRS PRN PO NAUSEA/VOMITING 12/14/20 09:30 12/24/20 09:17 Methylnaltrexone [place] (Relistor) 12 mg ONCE ONCE SQ 12/14/20 16:00 12/14/20 16:01 DC 12/14/20 18:09 Olanzapine (ZyPREXA ZYDIS) 2.5 mg PRN Q2HRS PRN PO PSYCHOSIS 12/14/20 16:30 12/26/20 15:28 Lidocaine HCl (Glydo (Lidocaine) Jelly) 1 yisel 1X ONCE MM 12/15/20 16:15 12/15/20 16:16 DC 12/15/20 16:15 Nystatin (Nystop) 15 yisel STK-MED ONCE TP 12/16/20 02:29 12/16/20 02:30 DC Trimethoprim/ Sulfamethoxazole (Bactrim Ds) 1 tab BID PO 12/17/20 12:00 12/23/20 23:50 DC 12/23/20 20:35 Doxycycline Hyclate (Vibra-Tab) 100 mg BID PO 12/17/20 12:00 12/23/20 23:50 DC 12/23/20 20:34 Paroxetine HCl (Paxil) 30 mg DAILY PO 12/19/20 09:00 12/21/20 20:10 DC 12/21/20 09:42 Haloperidol (Haldol) 4 mg BID PO 12/19/20 21:00 12/22/20 20:19 DC 12/22/20 19:56 Atenolol (Tenormin) 50 mg DAILY PO 12/21/20 17:30 12/25/20 16:20 DC 12/24/20 12:37 Potassium Chloride (Klor-Con) 20 meq DAILY PO 12/21/20 18:50 12/31/20 08:12 Paroxetine HCl (Paxil) 20 mg DAILY PO 12/22/20 09:00 12/31/20 08:14 Haloperidol (Haldol) 5 mg BID PO 12/23/20 09:00 12/31/20 08:14 Metoclopramide HCl (Reglan) 5 mg TIDACHC PO 12/24/20 17:00 12/31/20 08:14 Lansoprazole (Prevacid) 30 mg DAILYAC PO 12/25/20 07:30 12/26/20 09:41 DC 12/26/20 09:39 Atenolol (Tenormin) 25 mg DAILY PO 12/26/20 09:00 12/31/20 08:13 Lansoprazole (Prevacid) 30 mg DAILY06 PO 12/27/20 06:00 12/31/20 05:36 Cefdinir (Omnicef) 300 mg BID PO 12/27/20 18:45 12/27/20 18:51 Cancel Cefdinir (Omnicef) 300 mg BID PO 12/27/20 21:00 01/03/21 22:00 12/31/20 08:14 Buspirone HCl (Buspar) 15 mg BID@1400,2100 PO 12/30/20 14:00 12/30/20 19:57 Buspirone HCl (Buspar) 25 mg DAILY PO 12/30/20 09:00 12/31/20 08:13 Insulin Glargine (Lantus Syringe) 15 unit QHS SQ 12/30/20 21:00 12/30/20 21:26 Insulin Human Lispro (HumaLOG) 3 units TIDWMEALS SQ 12/30/20 17:00 12/31/20 08:20 Current Medications Medications (Trade) Dose Ordered Sig/Melissa Route PRN Reason Start Time Stop Time Status Last Admin Dose Admin Buspirone HCl (Buspar) 15 mg BID@1400,2100 PO 12/30/20 14:00 12/30/20 19:57 Buspirone HCl (Buspar) 25 mg DAILY PO 12/30/20 09:00 12/31/20 08:13 Insulin Glargine (Lantus Syringe) 15 unit QHS SQ 12/30/20 21:00 12/30/20 21:26 Insulin Human Lispro (HumaLOG) 3 units TIDWMEALS SQ 12/30/20 17:00 12/31/20 08:20 I have reviewed the current psychotropics carefully including drug interactions. Risk benefit ratio favors no change other than as noted in my dictated progress note. Diagnosis: Problems: (1) Impulse control disorder, unspecified (2) Anxiety disorder, unspecified (3) Bipolar disorder, current episode mixed, severe, with psychotic features (4) Mild cognitive impairment EDSON VILLANUEVA MD Dec 31, 2020 08:34
--- NOTE | 2020-12-31 10:16 | NUR ---
Nursing note: Pt is in dining room at time of AM med pass and assessment. He is compliant with meds crushed in pudding and cooperative with assessment. He is attention seeking at times and yelling out that he's "going to throw up" and acts as if he's about to vomit. Pt redirected and did not vomit during breakfast. He denies having any pain/concerns this AM. He is currently sitting quietly in his room. Will continue to monitor.
--- NOTE | 2020-12-31 11:10 | NUR ---
[facility] Social Work Discharge Planning Form Patient Name MERISSA HILL Admit Date: 10 December 2020 DISCHARGE PLAN Discharge Destination: Pt to discharge back to [facility] Care Assessment: N/A Level II Assessment: N/A Transportation: [facility] to pick pt up via stretcher at 1200. Special Instructions/Notes: Please fax discharge orders, discharge medication and discharge summary to the fax number listed below. DISCHARGE TO FACILITY Facility: [facility] Address: [address] [place] [address] Contact Name: Terrence Figueroa Social Work: Contact Name: Please ask for the nurse providing care for pt upon admission. PCP: Dr. Lino
[2020-12-31] MEDS: busPIRone 15 MG TABLET. PO SCH ×2 (13:28→21:07)
[2020-12-31] MEDS ORDERED: ATEN25TA42 PO (14:44)
[2020-12-31] MEDS ORDERED: CEFD300C PO (14:46)
[2020-12-31] MEDS ORDERED: DIVA125C2 PO (14:54)
[2020-12-31] MEDS ORDERED: LANS30CA PO (14:56)
[2020-12-31] MEDS ORDERED: MAGN24003 PO (14:57)
[2020-12-31] MEDS ORDERED: METH57CR17 TP (14:59)
[2020-12-31] MEDS ORDERED: METO5TAB55 PO (15:02)
[2020-12-31] MEDS ORDERED: ONDA4TAB12 PO (15:04)
[2020-12-31] MEDS ORDERED: POTA20TA4 PO (15:06)
[2020-12-31] MEDS ORDERED: BUSP30TA PO (15:08)
[2020-12-31] MEDS ORDERED: BUSP10TA PO (15:13)
[2020-12-31] MEDS ORDERED: PARO20TA99 PO (15:18)
[2020-12-31 15:33] VITALS: BP 116/78
[2020-12-31] MEDS: SIMVASTATIN 10 MG TABLET PO SCH (21:07)
[2020-12-31] MEDS: INSULIN GLARGINE SYRINGE. SQ SCH (21:13)
--- NOTE | 2020-12-31 22:55 | PDOC ---
Exam Note: Edgar Note: This note covers elements not covered in my initial note. Subjective: The patient was seen individually in the evening of 12/31/2020 with Stacie CHIRINOS, discussed and reviewed the chart. The patient slept 6-3/4 hours previous night. Overall the patient has done better during the day today. Previous evening he was yelling, sexually inappropriate, somewhat obsessive regarding fluids but less than before. Review of Systems: Ambulation impaired, in bed. No CV, , pulmonary, eye, ENT system symptoms on review. Mental Status Exam: The patient is oriented to himself and situation. I met with him in his room. Speech has some latency, coherent. Abstraction fair. Computation impaired. Language function intact. Attention span short. Mood and affect less labile. Laboratory Data: Reviewed. Impression: Bipolar disorder mixed with psychotic features. Anxiety disorder unspecified. Mild cognitive impairment. Plan: Transition back to custodial on 01/01. Assessment: Vital Signs/I&O: Vital Signs Date Time Temp Pulse Resp B/P (MAP) Pulse Ox O2 Delivery O2 Flow Rate FiO2 12/31/20 15:33 99.1 72 18 116/78 (91) 97 12/29/20 15:37 2.0 12/27/20 12:42 Room Air I & O 12/30/20 12/30/20 12/31/20 15:00 23:00 07:00 Intake Total 480 ml 560 ml Balance 480 ml 560 ml Labs: Laboratory Tests Test 12/31/20 07:32 12/31/20 11:33 12/31/20 16:52 12/31/20 19:09 Glucose (Fingerstick) 140 mg/dL (70-99) H 245 mg/dL (70-99) H 162 mg/dL (70-99) H 160 mg/dL (70-99) H Current Medications: Meds: Laboratory Tests Test 12/31/20 07:32 12/31/20 11:33 12/31/20 16:52 12/31/20 19:09 Glucose (Fingerstick) 140 mg/dL 245 mg/dL 162 mg/dL 160 mg/dL Current Medications Medications (Trade) Dose Ordered Sig/Melissa Route PRN Reason Start Time Stop Time Status Last Admin Dose Admin Acetaminophen (Tylenol) 650 mg PRN Q6HRS PRN PO MILD PAIN / TEMP > 100.3'F 12/10/20 20:15 12/29/20 06:17 Multi-Ingredient Ointment (Analgesic [place]) 1 yisel PRN QID PRN TP MUSCLE PAIN 12/10/20 20:15 Al Hydroxide/Mg Hydroxide (Mylanta Plus Xs) 15 ml PRN AFTMEALHC PRN PO DYSPEPSIA 12/10/20 20:15 Magnesium Hydroxide (Milk Of Magnesia) 2,400 mg PRN QHS PRN PO 1ST CHOICE CONSTIPATION 12/10/20 20:15 Acetaminophen (Tylenol) 650 mg PRN Q6HRS PRN PO pain or fever 12/10/20 20:45 UNV Baclofen (Lioresal) 10 mg TID PO 12/10/20 21:00 12/31/20 21:07 Bisacodyl (Dulcolax Tab) 5 mg PRN DAILY PRN PO 3RD CHOICE CONSTIPATION 12/10/20 20:45 Buspirone HCl (Buspar) 15 mg TID PO 12/10/20 21:00 12/30/20 05:03 DC 12/29/20 20:41 Divalproex Sodium (Depakote Er) 250 mg TID PO 12/10/20 21:00 12/12/20 18:37 DC 12/12/20 14:01 Docusate Sodium (Colace) 100 mg BID PO 12/10/20 21:00 12/31/20 21:07 Famotidine (Pepcid) 20 mg HS PO 12/10/20 21:00 12/24/20 16:43 DC 12/23/20 20:35 Fentanyl (Duragesic 12mcg/ Hr) 1 patch Q3DAYS TD 12/12/20 09:00 12/30/20 08:47 Haloperidol (Haldol) 2 mg BID PO 12/10/20 21:00 12/19/20 18:33 DC 12/19/20 11:08 Sodium Biphosphate/ Sodium Phosphate (Fleet Adult) 133 ml PRN DAILY PRN RC 4TH CHOICE CONSTIPATION 12/10/20 20:45 12/16/20 06:24 Naloxegol (Movantik) 25 mg PRN DAILY PRN PO 2ND CHOICE CONSTIPATION 12/10/20 20:45 Paroxetine HCl (Paxil) 10 mg DAILY PO 12/11/20 09:00 12/18/20 11:40 DC 12/18/20 09:08 Polyethylene Glycol (miraLAX) 17 gm BID PO 12/10/20 21:00 12/31/20 21:06 Sennosides (Senna) 8.6 mg DAILY PO 12/11/20 09:00 12/31/20 08:14 Simvastatin (Zocor) 10 mg QHS PO 12/10/20 21:00 12/31/20 21:07 Tamsulosin HCl (Flomax) 0.4 mg DAILY PO 12/11/20 09:00 12/31/20 08:13 Insulin Human Lispro (HumaLOG) 10 units TIDWMEALS SQ 12/11/20 08:00 12/13/20 16:29 DC 12/13/20 12:31 Insulin Glargine (Lantus Syringe) 25 unit QHS SQ 12/10/20 21:00 12/30/20 16:32 DC 12/29/20 21:24 Lactobacillus Rhamnosus (Culturelle) 1 cap BID PO 12/10/20 21:00 12/31/20 21:07 Multivitamins/ Calcium (Thera-M Plus) 1 tab DAILY PO 12/11/20 09:00 12/31/20 08:13 Paroxetine HCl (Paxil) 40 mg DAILY PO 12/11/20 09:00 12/18/20 11:40 DC 12/18/20 09:08 Divalproex Sodium (Depakote Sprinkles) 250 mg 0900,1400 PO 12/13/20 09:00 12/31/20 13:29 Divalproex Sodium (Depakote Sprinkles) 500 mg QHS PO 12/12/20 21:00 12/31/20 21:06 Insulin Human Lispro (HumaLOG) 5 units TIDWMEALS SQ 12/13/20 16:30 12/30/20 16:32 DC 12/30/20 12:25 Ondansetron HCl (Zofran Odt) 4 mg PRN Q4HRS PRN PO NAUSEA/VOMITING 12/14/20 09:30 12/24/20 09:17 Methylnaltrexone [place] (Relistor) 12 mg ONCE ONCE SQ 12/14/20 16:00 12/14/20 16:01 DC 12/14/20 18:09 Olanzapine (ZyPREXA ZYDIS) 2.5 mg PRN Q2HRS PRN PO PSYCHOSIS 12/14/20 16:30 12/26/20 15:28 Lidocaine HCl (Glydo (Lidocaine) Jelly) 1 yisel 1X ONCE MM 12/15/20 16:15 12/15/20 16:16 DC 12/15/20 16:15 Nystatin (Nystop) 15 yisel STK-MED ONCE TP 12/16/20 02:29 12/16/20 02:30 DC Trimethoprim/ Sulfamethoxazole (Bactrim Ds) 1 tab BID PO 12/17/20 12:00 12/23/20 23:50 DC 12/23/20 20:35 Doxycycline Hyclate (Vibra-Tab) 100 mg BID PO 12/17/20 12:00 12/23/20 23:50 DC 12/23/20 20:34 Paroxetine HCl (Paxil) 30 mg DAILY PO 12/19/20 09:00 12/21/20 20:10 DC 12/21/20 09:42 Haloperidol (Haldol) 4 mg BID PO 12/19/20 21:00 12/22/20 20:19 DC 12/22/20 19:56 Atenolol (Tenormin) 50 mg DAILY PO 12/21/20 17:30 12/25/20 16:20 DC 12/24/20 12:37 Potassium Chloride (Klor-Con) 20 meq DAILY PO 12/21/20 18:50 12/31/20 08:12 Paroxetine HCl (Paxil) 20 mg DAILY PO 12/22/20 09:00 12/31/20 08:14 Haloperidol (Haldol) 5 mg BID PO 12/23/20 09:00 12/31/20 21:07 Metoclopramide HCl (Reglan) 5 mg TIDACHC PO 12/24/20 17:00 12/31/20 21:07 Lansoprazole (Prevacid) 30 mg DAILYAC PO 12/25/20 07:30 12/26/20 09:41 DC 12/26/20 09:39 Atenolol (Tenormin) 25 mg DAILY PO 12/26/20 09:00 12/31/20 08:13 Lansoprazole (Prevacid) 30 mg DAILY06 PO 12/27/20 06:00 12/31/20 05:36 Cefdinir (Omnicef) 300 mg BID PO 12/27/20 18:45 12/27/20 18:51 Cancel Cefdinir (Omnicef) 300 mg BID PO 12/27/20 21:00 01/03/21 22:00 12/31/20 21:07 Buspirone HCl (Buspar) 15 mg BID@1400,2100 PO 12/30/20 14:00 12/31/20 21:07 Buspirone HCl (Buspar) 25 mg DAILY PO 12/30/20 09:00 12/31/20 08:13 Insulin Glargine (Lantus Syringe) 15 unit QHS SQ 12/30/20 21:00 12/31/20 21:13 Insulin Human Lispro (HumaLOG) 3 units TIDWMEALS SQ 12/30/20 17:00 12/31/20 17:20 I have reviewed the current psychotropics carefully including drug interactions. Risk benefit ratio favors no change other than as noted in my dictated progress note. Diagnosis: Problems: (1) Schizoaffective disorder, bipolar type (2) Impulse control disorder, unspecified (3) Anxiety disorder, unspecified (4) Bipolar disorder, current episode mixed, severe, with psychotic features (5) Mild cognitive impairment EDSON VILLANUEVA MD Dec 31, 2020 22:55
--- NOTE | 2020-12-31 23:37 | NUR ---
Patient was calm and pleasant during interaction. He is medication compliant and takes meds crushed in pudding, followed by nectar thick liquids. Patient did NOT make excessive requests for drinks and has been appropriate in his conversations with staff.
[2021-01-01] MEDS: LANSOPRAZOLE 30 MG TAB.RAP.DR PO SCH (05:00)
[2021-01-01 06:28] VITALS: BP 132/84
[2021-01-01] MEDS: MULTIVITAMIN with MINERAL TABLET. PO SCH (09:00)
[2021-01-01] MEDS: POLYETHYLENE GLYCOL 3350 17 GM PACKET. PO SCH (09:02)
[2021-01-01] MEDS: BACLOFEN 10 MG TABLET PO SCH (09:03)
[2021-01-01] MEDS: METOCLOPRAMIDE 5 MG TABLET PO SCH ×2 (09:03→12:00)
[2021-01-01] MEDS: POTASSIUM CHLORIDE 20 MEQ TABLET.ER. PO SCH (09:03)
[2021-01-01] MEDS: PARoxetine 20 MG TABLET PO SCH (09:03)
[2021-01-01] MEDS: HALOPERIDOL 5 MG TABLET PO SCH (09:03)
[2021-01-01] MEDS: CEFDINIR 300 MG CAPSULE PO SCH (09:03)
[2021-01-01] MEDS: TAMSULOSIN 0.4 MG CAP.ER.24H. PO SCH (09:03)
[2021-01-01] MEDS: LACTOBACILLUS RHAMNOSUS GG 1 CAPSULE. PO SCH (09:03)
[2021-01-01] MEDS: busPIRone 10 MG TABLET. PO SCH (09:03)
[2021-01-01 09:04] VITALS: BP 132/84
[2021-01-01] MEDS: DOCUSATE SODIUM 100 MG CAPSULE PO SCH (09:04)
[2021-01-01] MEDS: DIVALPROEX 125 MG CAP.SPRINK PO SCH (09:04)
[2021-01-01] MEDS: SENNOSIDES 8.6 MG TABLET PO SCH (09:04)
[2021-01-01] MEDS: ATENOLOL 50 MG TABLET PO SCH (09:04)
[2021-01-01] MEDS: INSULIN LISPRO 300 UNITS/3 ML VIAL. SQ SCH (09:25)
[2021-01-01] MEDS ORDERED: MAG-83 PO (11:31)
[2021-01-01] MEDS ORDERED: OLAN5TAB67 PO (11:33)
--- NOTE | 2021-01-01 12:30 | NUR ---
Transition Record was faxed to follow-up provider with the following elements: Reason for admission, procedures, tests, principal diagnosis, pending studies, patient instructions, 11/10 contact information for unit, phone number to obtain pending test results, plan for follow-up care, physician follow-up, advanced directive information, and medication list with dose, duration and instructions. This information was included in the following documents: History and physical, lab results, study results, progress notes, social work planning form, DC instruction form, patient visit summary, and medication reconciliation form. Date & time record faxed: 01/01/21 @ 0330 Record faxed to: [facility] @ [phone] Record discussed with/ report given to: [facility] @ [phone]
--- NOTE | 2021-01-01 22:07 | PDOC ---
Exam Note: Edgar Note: Please also refer to the separate dictated note~for this date of service dictated separately.~Patient seen individually. Discussed the patient with Nursing staff reviewed the chart.~Reviewed interim history and current functioning. Reviewed vital signs,~Labs/ Radiology~and current medications noted below. Continue current treatment with the changes noted in the dictated addendum note Assessment: Vital Signs/I&O: Vital Signs Date Time Temp Pulse Resp B/P (MAP) Pulse Ox O2 Delivery O2 Flow Rate FiO2 01/01/21 09:04 52 132/84 01/01/21 06:28 97.3 16 98 Room Air 2.0 I & O 12/31/20 12/31/20 01/01/21 15:00 23:00 07:00 Intake Total 1180 ml 720 ml Balance 1180 ml 720 ml Labs: Laboratory Tests Test 01/01/21 07:41 01/01/21 11:48 Glucose (Fingerstick) 112 mg/dL (70-99) H 168 mg/dL (70-99) H Current Medications: Meds: Laboratory Tests Test 01/01/21 07:41 01/01/21 11:48 Glucose (Fingerstick) 112 mg/dL 168 mg/dL Current Medications Medications (Trade) Dose Ordered Sig/Melissa Route PRN Reason Start Time Stop Time Status Last Admin Dose Admin Acetaminophen (Tylenol) 650 mg PRN Q6HRS PRN PO MILD PAIN / TEMP > 100.3'F 12/10/20 20:15 01/01/21 13:01 DC 12/29/20 06:17 Multi-Ingredient Ointment (Analgesic [place]) 1 yisel PRN QID PRN TP MUSCLE PAIN 12/10/20 20:15 01/01/21 13:01 DC Al Hydroxide/Mg Hydroxide (Mylanta Plus Xs) 15 ml PRN AFTMEALHC PRN PO DYSPEPSIA 12/10/20 20:15 01/01/21 13:01 DC Magnesium Hydroxide (Milk Of Magnesia) 2,400 mg PRN QHS PRN PO 1ST CHOICE CONSTIPATION 12/10/20 20:15 01/01/21 13:01 DC Acetaminophen (Tylenol) 650 mg PRN Q6HRS PRN PO pain or fever 12/10/20 20:45 UNV Baclofen (Lioresal) 10 mg TID PO 12/10/20 21:00 10/14/21 13:01 DC 01/01/21 09:03 Bisacodyl (Dulcolax Tab) 5 mg PRN DAILY PRN PO 3RD CHOICE CONSTIPATION 12/10/20 20:45 01/01/21 13:01 DC Buspirone HCl (Buspar) 15 mg TID PO 12/10/20 21:00 12/30/20 05:03 DC 12/29/20 20:41 Divalproex Sodium (Depakote Er) 250 mg TID PO 12/10/20 21:00 12/12/20 18:37 DC 12/12/20 14:01 Docusate Sodium (Colace) 100 mg BID PO 12/10/20 21:00 01/01/21 13:01 DC 01/01/21 09:04 Famotidine (Pepcid) 20 mg HS PO 12/10/20 21:00 12/24/20 16:43 DC 12/23/20 20:35 Fentanyl (Duragesic 12mcg/ Hr) 1 patch Q3DAYS TD 12/12/20 09:00 01/01/21 13:01 DC 12/30/20 08:47 Haloperidol (Haldol) 2 mg BID PO 12/10/20 21:00 12/19/20 18:33 DC 12/19/20 11:08 Sodium Biphosphate/ Sodium Phosphate (Fleet Adult) 133 ml PRN DAILY PRN RC 4TH CHOICE CONSTIPATION 12/10/20 20:45 01/01/21 13:01 DC 12/16/20 06:24 Naloxegol (Movantik) 25 mg PRN DAILY PRN PO 2ND CHOICE CONSTIPATION 12/10/20 20:45 01/01/21 13:01 DC Paroxetine HCl (Paxil) 10 mg DAILY PO 12/11/20 09:00 12/18/20 11:40 DC 12/18/20 09:08 Polyethylene Glycol (miraLAX) 17 gm BID PO 12/10/20 21:00 01/01/21 13:01 DC 01/01/21 09:02 Sennosides (Senna) 8.6 mg DAILY PO 12/11/20 09:00 01/01/21 13:01 DC 01/01/21 09:04 Simvastatin (Zocor) 10 mg QHS PO 12/10/20 21:00 01/01/21 13:01 DC 12/31/20 21:07 Tamsulosin HCl (Flomax) 0.4 mg DAILY PO 12/11/20 09:00 01/01/21 13:01 DC 01/01/21 09:03 Insulin Human Lispro (HumaLOG) 10 units TIDWMEALS SQ 12/11/20 08:00 12/13/20 16:29 DC 12/13/20 12:31 Insulin Glargine (Lantus Syringe) 25 unit QHS SQ 12/10/20 21:00 12/30/20 16:32 DC 12/29/20 21:24 Lactobacillus Rhamnosus (Culturelle) 1 cap BID PO 12/10/20 21:00 01/01/21 13:01 DC 01/01/21 09:03 Multivitamins/ Calcium (Thera-M Plus) 1 tab DAILY PO 12/11/20 09:00 01/01/21 13:01 DC 01/01/21 09:00 Paroxetine HCl (Paxil) 40 mg DAILY PO 12/11/20 09:00 12/18/20 11:40 DC 12/18/20 09:08 Divalproex Sodium (Depakote Sprinkles) 250 mg 0900,1400 PO 12/13/20 09:00 01/01/21 13:01 DC 01/01/21 09:04 Divalproex Sodium (Depakote Sprinkles) 500 mg QHS PO 12/12/20 21:00 01/01/21 13:01 DC 12/31/20 21:06 Insulin Human Lispro (HumaLOG) 5 units TIDWMEALS SQ 12/13/20 16:30 12/30/20 16:32 DC 12/30/20 12:25 Ondansetron HCl (Zofran Odt) 4 mg PRN Q4HRS PRN PO NAUSEA/VOMITING 12/14/20 09:30 01/01/21 13:01 DC 12/24/20 09:17 Methylnaltrexone [place] (Relistor) 12 mg ONCE ONCE SQ 12/14/20 16:00 12/14/20 16:01 DC 12/14/20 18:09 Olanzapine (ZyPREXA ZYDIS) 2.5 mg PRN Q2HRS PRN PO PSYCHOSIS 12/14/20 16:30 01/01/21 13:01 DC 12/26/20 15:28 Lidocaine HCl (Glydo (Lidocaine) Jelly) 1 yisel 1X ONCE MM 12/15/20 16:15 12/15/20 16:16 DC 12/15/20 16:15 Nystatin (Nystop) 15 yisel STK-MED ONCE TP 12/16/20 02:29 12/16/20 02:30 DC Trimethoprim/ Sulfamethoxazole (Bactrim Ds) 1 tab BID PO 12/17/20 12:00 12/23/20 23:50 DC 12/23/20 20:35 Doxycycline Hyclate (Vibra-Tab) 100 mg BID PO 12/17/20 12:00 12/23/20 23:50 DC 12/23/20 20:34 Paroxetine HCl (Paxil) 30 mg DAILY PO 12/19/20 09:00 12/21/20 20:10 DC 12/21/20 09:42 Haloperidol (Haldol) 4 mg BID PO 12/19/20 21:00 12/22/20 20:19 DC 12/22/20 19:56 Atenolol (Tenormin) 50 mg DAILY PO 12/21/20 17:30 12/25/20 16:20 DC 12/24/20 12:37 Potassium Chloride (Klor-Con) 20 meq DAILY PO 12/21/20 18:50 01/01/21 13:01 DC 01/01/21 09:03 Paroxetine HCl (Paxil) 20 mg DAILY PO 12/22/20 09:00 01/01/21 13:02 DC 01/01/21 09:03 Haloperidol (Haldol) 5 mg BID PO 12/23/20 09:00 01/01/21 13:02 DC 01/01/21 09:03 Metoclopramide HCl (Reglan) 5 mg TIDACHC PO 12/24/20 17:00 01/01/21 13:02 DC 01/01/21 12:00 Lansoprazole (Prevacid) 30 mg DAILYAC PO 12/25/20 07:30 12/26/20 09:41 DC 12/26/20 09:39 Atenolol (Tenormin) 25 mg DAILY PO 12/26/20 09:00 01/01/21 13:02 DC 01/01/21 09:04 Lansoprazole (Prevacid) 30 mg DAILY06 PO 12/27/20 06:00 01/01/21 13:02 DC 01/01/21 05:00 Cefdinir (Omnicef) 300 mg BID PO 12/27/20 18:45 12/27/20 18:51 Cancel Cefdinir (Omnicef) 300 mg BID PO 12/27/20 21:00 01/01/21 13:02 DC 01/01/21 09:03 Buspirone HCl (Buspar) 15 mg BID@1400,2100 PO 12/30/20 14:00 01/01/21 13:02 DC 12/31/20 21:07 Buspirone HCl (Buspar) 25 mg DAILY PO 12/30/20 09:00 01/01/21 13:02 DC 01/01/21 09:03 Insulin Glargine (Lantus Syringe) 15 unit QHS SQ 12/30/20 21:00 01/01/21 13:02 DC 12/31/20 21:13 Insulin Human Lispro (HumaLOG) 3 units TIDWMEALS SQ 12/30/20 17:00 01/01/21 13:02 DC 01/01/21 09:25 I have reviewed the current psychotropics carefully including drug interactions. Risk benefit ratio favors no change other than as noted in my dictated progress note. Diagnosis: Problems: (1) Mood disorder (2) Impulse control disorder, unspecified (3) Anxiety disorder, unspecified (4) Mild cognitive impairment (5) Bipolar disorder, current episode mixed, severe, with psychotic features EDSON VILLANUEVA MD Jan 01, 2021 22:07
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
== END 2021-01-01 12:15 | DRG 885 ==
LOC: GEROPSY 18:45
PROVIDERS: ADMIT Psychiatry & Neurology Psychiatry; ATTEND Psychiatry & Neurology Psychiatry
DX: F25.0 Schizoaffective disorder, bipolar type (principal); I69.351 Hemiplegia and hemiparesis following cerebral infarction affecting right dominant side; L03.116 Cellulitis of left lower limb; N39.0 Urinary tract infection, site not specified; G82.20 Paraplegia, unspecified; G20 Parkinson's disease; E11.9 Type 2 diabetes mellitus without complications; E78.5 Hyperlipidemia, unspecified; F41.9 Anxiety disorder, unspecified; F63.9 Impulse disorder, unspecified; G31.84 Mild cognitive impairment of uncertain or unknown etiology; K56.41 Fecal impaction; Z74.01 Bed confinement status; Z79.899 Other long term (current) drug therapy; Z87.440 Personal history of urinary (tract) infections; Z87.442 Personal history of urinary calculi; Z96.642 Presence of left artificial hip joint; Z99.3 Dependence on wheelchair; Z20.822 Contact with and (suspected) exposure to COVID-19; Z88.8 Allergy status to other drugs, medicaments and biological substances
CPT/HCPCS: 36415; 70450; 71045; 73552; 74018; 74176; 80048; 80053; 80061; 80164; 81001; 82306; 82607; 82947; 83036; 83540; 83550; 83735; 84436; 84443; 84480; 85025; 85379; 86592; 87077; 87086; 87186; 93005; 93971; J1815; J2212; Q0162; U0003; 92610; 97535